=== PATIENT | male | born 1940 | race Caucasian/White ===

== ENCOUNTER → 2017-12-15 08:29 | Outpatient (CLI) | payer OTHER | END | disposition home or self-care (01) | LOC: D.US 08:29 | DX: C01 Malignant neoplasm of base of tongue (principal) ==

== ENCOUNTER 2020-05-12 13:18 | Inpatient (IN) | payer OTHER ==
[~2020-05-12] VITALS: Ht 185.4 cm; Wt 72.0 kg
[2020-05-12] MEDS ORDERED: REMERON15 MG PO (13:45)
[2020-05-12] MEDS ORDERED: LEVO-T50 MCG PO (13:45)
[2020-05-12] MEDS ORDERED: SINEMET 25-1001 EAC1 PO (13:51)
[2020-05-12 14:12] LABS: CALC OSMOLALITY 269 mosm/kg (275-300); CALCIUM 8.4 mg/dL (8.5-10.1); CARBON DIOXIDE 27.3 mmol/L (21.0-32.0); CHLORIDE - SERUM 98 mmol/L (98-107); CREATININE - SERUM 1.3 mg/dL (0.6-1.3); GLUCOSE 133 mg/dL (74-106); POTASSIUM - SERUM 3.8 mmol/L (3.5-5.1); SODIUM 132 mmol/L (136-145); UREA NITROGEN 22 mg/dL (7-18); eGFR NON AFRICAN AMERICAN 56 mL/min (90-120)
[2020-05-12 14:29] LABS: ALKALINE PHOSPHATASE 193 U/L (30-120); ALT (SGPT) 87 U/L (10-68); BILIRUBIN - TOTAL 0.33 mg/dL (0.2-1.3); CKMB 1.6 U/L (0.0-3.6); CREATINE KINASE 35 UL (21-232); PRO BNP 1179 pg/mL (0-450); PROTEIN - SERUM 7.8 g/dL (6.4-8.2); TROPONIN-I < 0.017 ng/mL (0.000-0.060)
[2020-05-12 14:31] LABS: BASOPHILS 0.3 % (0-2); HEMATOCRIT 31.9 % (42.0-54.0); HEMOGLOBIN 10.3 g/dL (13.5-17.5); IMMATURE GRANULOCYTES 0.3 % (0-5); LYMPHOCYTES 7.1 % (15-50); MCH 28.9 pg (26.0-34.0); MCHC 32.3 g/dL (31.0-37.0); MCV 89.6 fL (80.0-100.0); MEAN PLATELET VOLUME 8.8 fL (7.4-10.4); MONOCYTES 7.5 % (2-11); NEUTROPHILS 82.8 % (40-80); PLATELET COUNT 628 10x3/uL (130-400); RBC 3.56 10x6/uL (4.20-6.10); WBC 11.8 10x3/uL (4.8-10.8)
[2020-05-12 14:33] LABS: INR 1.1 (0.85-1.17); PROTIME 14.2 SECONDS (11.6-15.0)
[2020-05-12 14:34] LABS: APTT 40.7 SECONDS (22.8-39.4)
[2020-05-12 16:00] VITALS: BP 130/51
[2020-05-12] MEDS ORDERED: ZPAK PO (16:40)
[2020-05-12] MEDS ORDERED: MUCINEX600 MG PO (16:40)
[2020-05-12 17:01] LABS: C-REACTIVE PROTEIN 62.6 mg/dL (0.0-0.9)
[2020-05-12 17:30] VITALS: BP 141/54
[2020-05-12 18:30] VITALS: BP 134/58
--- NOTE | 2020-05-12 19:10 | NUR ---
REPORT GIVEN TO AYAZ HUSSEIN
[2020-05-12 20:30] VITALS: BP 133/41
[2020-05-13 01:20] VITALS: BP 121/57
[2020-05-13 05:37] VITALS: BP 155/70
[2020-05-13 07:00] LABS: BASOPHILS 0 % (0-2); EOSINOPHILS 0 % (0-7); HEMATOCRIT 30.8 % (42.0-54.0); IMMATURE GRANULOCYTES 0.2 % (0-5); MCH 29.2 pg (26.0-34.0); MCHC 32.5 g/dL (31.0-37.0); MCV 89.8 fL (80.0-100.0); MEAN PLATELET VOLUME 8.6 fL (7.4-10.4); MONOCYTES 2.6 % (2-11); NEUTROPHILS 91.2 % (40-80); PLATELET COUNT 513 10x3/uL (130-400); RBC 3.43 10x6/uL (4.20-6.10); RDW 13.1 % (11.5-14.5)
--- NOTE | 2020-05-13 07:00 | NUR ---
PT ARRIVED VIA APRIL JEAN AND UNLABORED ON 2L NC. DENIES NEEDS OR PAIN AT THIS TIME. CALL LIGHT WITHIN REACH. BED IN LOWEST POSITION. WILL CONTINUE TO MONITOR.
[2020-05-13 07:07] LABS: WBC 8.6 10x3/uL (4.8-10.8)
[2020-05-13 07:24] LABS: ANION GAP 10.6 mmol/L (8-16); CALCIUM 8.6 mg/dL (8.5-10.1); CREATININE - SERUM 1.1 mg/dL (0.6-1.3); MAGNESIUM - SERUM 2.2 mg/dL (1.8-2.4); PHOSPHOROUS 4.6 mg/dL (2.5-4.9); POTASSIUM - SERUM 4.6 mmol/L (3.5-5.1); THYROID STIMULATING HORMONE 0.7 uIU/mL (0.36-3.74)
[2020-05-13 07:54] VITALS: BP 128/52
[2020-05-13 11:00] VITALS: BMI 22.1
[2020-05-13 11:06] VITALS: BP 109/58
[2020-05-13 12:36] LABS: ERYTHROCYTE SEDIMENTATION RATE 133 mm/hr (0-20)
[2020-05-13 15:47] VITALS: BP 126/59
[2020-05-13 16:50] VITALS: BMI 22.2
--- NOTE | 2020-05-13 19:30 | NUR ---
PT IN BED, AAO X 2, RESP EVEN AND UNLABORED, NO DISTRESS NOTED, CL IN REACH, SR UP X 2.
[2020-05-13 20:00] VITALS: BP 169/75
[2020-05-14] VITALS: BP 113/46
[2020-05-14 04:00] VITALS: BP 144/63
[2020-05-14 04:30] LABS: BASOPHILS 0 % (0-2); EOSINOPHILS 0 % (0-7); HEMATOCRIT 27.8 % (42.0-54.0); HEMOGLOBIN 8.9 g/dL (13.5-17.5); IMMATURE GRANULOCYTES 0.4 % (0-5); MCH 28.6 pg (26.0-34.0); MCV 89.4 fL (80.0-100.0); MEAN PLATELET VOLUME 8.7 fL (7.4-10.4); MONOCYTES 5.3 % (2-11); NEUTROPHILS 89.3 % (40-80); PLATELET COUNT 498 10x3/uL (130-400); RBC 3.11 10x6/uL (4.20-6.10); RDW 13.1 % (11.5-14.5)
[2020-05-14 04:31] LABS: WBC 16.2 10x3/uL (4.8-10.8)
[2020-05-14 05:10] LABS: ANION GAP 9.3 mmol/L (8-16); CALCIUM 8.3 mg/dL (8.5-10.1); CARBON DIOXIDE 25.9 mmol/L (21.0-32.0); CREATININE - SERUM 1.2 mg/dL (0.6-1.3); MAGNESIUM - SERUM 2.1 mg/dL (1.8-2.4); PHOSPHOROUS 4.2 mg/dL (2.5-4.9); POTASSIUM - SERUM 4.2 mmol/L (3.5-5.1)
--- NOTE | 2020-05-14 08:00 | NUR ---
REPORT RECIEVED. PT SITTING SEMI FOWLERS IN BED. RR EVEN AND UNLABORED ON RA. PT HAS A R HAND PIV INFUSING NS @ 50. BED LOCKED AND IN LOWEST POSITION, CALL LIGHT WITHIN REACH. WILL CTM
[2020-05-14 09:25] VITALS: BP 133/57
[2020-05-14 13:02] LABS: KETONE NEGATIVE (NEGATIVE); NITRITE NEGATIVE (NEGATIVE)
[2020-05-14 13:03] LABS: BILIRUBIN NEGATIVE (NEGATIVE); UROBILINOGEN NORMAL mg/dL (< 2)
--- NOTE | 2020-05-14 14:31 | NUR ---
I have reviewed this patient and I concur with the Shift Assessment completed by the Licensed Practical Nurse today this shift.
--- NOTE | 2020-05-14 15:02 | NUR ---
OT NOTE: PT COMPLETED BED MOB WITH CGA/SBA. PT COMPLETED UE AROM TOLERATED. PT COMPLETED FACE/HAND HYGIENE WITH MIN A. [id number] THANK YOU,GABE JIANG
[2020-05-14 17:40] VITALS: Ht 185.4 cm; Wt 72.0 kg
--- NOTE | 2020-05-14 19:30 | NUR ---
PT SETTING UP ON SIDE OF BED, AAO X 3, RESP EVEN AND UNLABORED, NO DISTRESS NOTED, CL IN REACH.
[2020-05-14 20:00] VITALS: BP 137/64
[2020-05-15] VITALS: BP 121/55
--- NOTE | 2020-05-15 03:08 | NUR ---
I have reviewed this patient and I concur with the Shift Assessment completed by the Licensed Practical Nurse today this shift.
[2020-05-15 04:00] VITALS: BP 116/42
[2020-05-15 05:06] LABS: ANION GAP 12.9 mmol/L (8-16); CALCIUM 7.9 mg/dL (8.5-10.1); CARBON DIOXIDE 23.4 mmol/L (21.0-32.0); CREATININE - SERUM 1.1 mg/dL (0.6-1.3); PHOSPHOROUS 3.8 mg/dL (2.5-4.9); POTASSIUM - SERUM 4.3 mmol/L (3.5-5.1)
[2020-05-15 08:00] VITALS: BP 136/63
--- NOTE | 2020-05-15 08:05 | NUR ---
PT RECEIVED AWAKE AND ALERT. IV INFUSING, MEDS GIVEN. URINAL EMPTIED. REMINDED PT OF NPO STATUS FOR THORACENTESIS.
[2020-05-15 08:10] VITALS: BP 136/63
[2020-05-15 09:13] LABS: BASOPHILS 0 % (0-2); EOSINOPHILS 0 % (0-7); HEMOGLOBIN 9.3 g/dL (13.5-17.5); IMMATURE GRANULOCYTES 0.7 % (0-5); LYMPHOCYTES 9.3 % (15-50); MCH 28.8 pg (26.0-34.0); MCHC 32.1 g/dL (31.0-37.0); MCV 89.8 fL (80.0-100.0); MEAN PLATELET VOLUME 8.7 fL (7.4-10.4); MONOCYTES 7.3 % (2-11); NEUTROPHILS 82.7 % (40-80); PLATELET COUNT 500 10x3/uL (130-400); RBC 3.23 10x6/uL (4.20-6.10); RDW 13.2 % (11.5-14.5)
[2020-05-15 10:13] LABS: WBC 12.1 10x3/uL (4.8-10.8)
--- NOTE | 2020-05-15 12:59 | NUR ---
OT NOTE: PT SITTING UP IN BED; ABLE TO AMB TO TOILET WITH SBA; INDEP WITH URINAL USAGE. PT UPSET THAT HE HAS NOT HAD PROCEDURE YET AND HAS NOT HAD ANYTHING TO EAT. EXPLAINED TO PT THAT SOMETIMES A SURGERY EARLIER IN THE DAY CAN LAST LONGER THAN EXPECTED WHICH, IN TURN, MAKES THE FOLLOWING SURGERIES LATER. ATTEMPTED TO CALM PT; NO NEEDS AT THIS TIME. ROBERT PARMAR, OTR/L [phone]
--- NOTE | 2020-05-15 13:09 | NUR ---
Nutrition Follow-up: NPO for thoracentesis today. SALES SUPPORT MANAGER following; rec mech soft with thin liquids. Wt: 158.8# (05/14) Labs noted: Glu 114, Ca 7.9 Meds noted: Florajen, Pepcid, Remeron, zinc sulfate, vit D, vit C -Rec resume diet as medically feasible following procedure. -RD following.
--- NOTE | 2020-05-15 13:16 | NUR ---
TALKED WITH CT ABOUT THORACENTESIS, THEY STATE NOT GETTING DONE TILL COVID RESULTS BACK. INFORMED PT AND LET HIM EAT.
--- NOTE | 2020-05-15 14:53 | NUR ---
PT ASSISTED TO TAKE A SHOWER. IV WRAPPED. LINENS CHANGED.
[2020-05-15 18:26] VITALS: BP 162/73
--- NOTE | 2020-05-15 19:30 | NUR ---
PT IN BED, AAO X 2, PT GETS CONFUSED AT NIGHT SOMETIMES, RESP EVEN AND UNLABORED, NO DISTRESS NOTED, CL IN REACH, SR UP X 2.
[2020-05-15 20:00] VITALS: BP 136/52
[2020-05-16] VITALS (7 sets, daily range): BP systolic 99–151; BP diastolic 57–67
--- NOTE | 2020-05-16 00:38 | NUR ---
PT IN BED, AAO X 2, RESP EVEN AND UNLABORED, NO DISTRESS NOTED, CL IN REACH, SR UP X 2. PT GETS CONFUSED AT TIMES.
[2020-05-16 04:52] LABS: BASOPHILS 0 % (0-2); EOSINOPHILS 0 % (0-7); HEMATOCRIT 27.3 % (42.0-54.0); HEMOGLOBIN 8.7 g/dL (13.5-17.5); IMMATURE GRANULOCYTES 0.6 % (0-5); LYMPHOCYTES 9.6 % (15-50); MCH 28.6 pg (26.0-34.0); MCHC 31.9 g/dL (31.0-37.0); MCV 89.8 fL (80.0-100.0); MEAN PLATELET VOLUME 8.9 fL (7.4-10.4); MONOCYTES 8.7 % (2-11); NEUTROPHILS 81.1 % (40-80); PLATELET COUNT 426 10x3/uL (130-400); RBC 3.04 10x6/uL (4.20-6.10); RDW 13.3 % (11.5-14.5); WBC 10.5 10x3/uL (4.8-10.8)
[2020-05-16 05:07] LABS: ANION GAP 9.8 mmol/L (8-16); CARBON DIOXIDE 26.2 mmol/L (21.0-32.0); CREATININE - SERUM 1.4 mg/dL (0.6-1.3); MAGNESIUM - SERUM 2.1 mg/dL (1.8-2.4); PHOSPHOROUS 3.4 mg/dL (2.5-4.9); PROTEIN - SERUM 6.5 g/dL (6.4-8.2)
[2020-05-16 10:39] LABS: APTT 34.4 SECONDS (22.8-39.4); INR 1.11 (0.85-1.17); PROTIME 14.3 SECONDS (11.6-15.0)
[2020-05-16 13:38] LABS: PROTEIN - BODY FLUID 3.7 G/DL
[2020-05-16 14:04] LABS: EOS BF 25 %; NEUT - BF 8 %
--- NOTE | 2020-05-16 17:00 | NUR ---
OT NOTE: PT COMPLETED SUPINE TO SIT WITH WITH CGA. PT COMPLETED SIDE STEPS WITH CGA. PT COMPLETED ADL MOB WITH CGA. PT COMPLETED UE AROM AXS AT EOB WITH SBA. [id number] THANK YOU,GABE JIANG
--- NOTE | 2020-05-16 19:33 | NUR ---
RECEIVED REPORT, ASSUMED CARE, BREATHING EVEN UNLABORED, CALL LIGHT IN REACH, BED LOWEST POSITION, NO S/S OF DISTRESS NOTED, IV PATENT, PT UP TO BATHROOM
--- NOTE | 2020-05-17 01:19 | NUR ---
BLADDER SCANNED, 108ML PRESENT IN BLADDER AT THIS TIME
--- NOTE | 2020-05-17 04:30 | NUR ---
I have reviewed this patient and I concur with the Shift Assessment completed by the Licensed Practical Nurse today this shift.
[2020-05-17 04:40] VITALS: BP 105/52
[2020-05-17 05:25] LABS: BASOPHILS 0.1 % (0-2); EOSINOPHILS 3.1 % (0-7); HEMATOCRIT 28.9 % (42.0-54.0); HEMOGLOBIN 9.3 g/dL (13.5-17.5); IMMATURE GRANULOCYTES 0.6 % (0-5); LYMPHOCYTES 19.9 % (15-50); MCH 28.9 pg (26.0-34.0); MCHC 32.2 g/dL (31.0-37.0); MCV 89.8 fL (80.0-100.0); MEAN PLATELET VOLUME 8.8 fL (7.4-10.4); MONOCYTES 8.8 % (2-11); NEUTROPHILS 67.5 % (40-80); PLATELET COUNT 463 10x3/uL (130-400); RBC 3.22 10x6/uL (4.20-6.10); RDW 13.3 % (11.5-14.5); WBC 8.3 10x3/uL (4.8-10.8)
[2020-05-17 05:39] LABS: ANION GAP 8.5 mmol/L (8-16); CALCIUM 7.5 mg/dL (8.5-10.1); CARBON DIOXIDE 27.5 mmol/L (21.0-32.0); CREATININE - SERUM 1.2 mg/dL (0.6-1.3); PHOSPHOROUS 3.2 mg/dL (2.5-4.9)
--- NOTE | 2020-05-17 07:34 | NUR ---
UPON WALKING IN PT WAS AMBULATING BACK TO BED FROM THE BATHROOM WITH STEADY GAIT. COFFEE RECIEVED PER REQUEST. CALL LIGHT WITHIN REACH. DENIES FURTHER NEEDS OR PAIN AT THIS TIME. BED IN LOWEST POSITION. WILL CONTINUE TO MONITOR.
[2020-05-17 08:00] VITALS: BP 134/53
[2020-05-17 10:30] VITALS: BP 134/56
[2020-05-17 15:00] VITALS: BP 114/48
--- NOTE | 2020-05-17 15:20 | NUR ---
I have reviewed this patient and I concur with the Shift Assessment completed by the Licensed Practical Nurse today this shift.
[2020-05-17 20:06] LABS: ACID FAST SMEAR Negative (()); AFB SPECIMEN PROCESSING Concentration (())
[2020-05-17 21:42] VITALS: BP 123/49
[2020-05-18 01:49] VITALS: BP 130/54
--- NOTE | 2020-05-18 03:28 | NUR ---
I have reviewed this patient and I concur with the Shift Assessment completed by the Licensed Practical Nurse today this shift.
--- NOTE | 2020-05-18 03:58 | NUR ---
PT RESTING COMFORTABLY AT THIS TIME. RR EVEN AND UNLABORED. NO S/S OF DISTRESS. VITALS STABLE. BED LOW CALL LIGHT WITHIN REACH. WILL CONTINUE TO MONITOR.
[2020-05-18 05:39] VITALS: BP 143/71
[2020-05-18 06:33] LABS: BASOPHILS 0.1 % (0-2); EOSINOPHILS 4.6 % (0-7); HEMATOCRIT 29.1 % (42.0-54.0); HEMOGLOBIN 9.4 g/dL (13.5-17.5); IMMATURE GRANULOCYTES 0.8 % (0-5); LYMPHOCYTES 14.7 % (15-50); MCHC 32.3 g/dL (31.0-37.0); MCV 89.8 fL (80.0-100.0); MONOCYTES 8.5 % (2-11); NEUTROPHILS 71.3 % (40-80); PLATELET COUNT 476 10x3/uL (130-400); RBC 3.24 10x6/uL (4.20-6.10); RDW 13.3 % (11.5-14.5); WBC 10.3 10x3/uL (4.8-10.8)
[2020-05-18 06:40] LABS: ANION GAP 9.4 mmol/L (8-16); CALCIUM 7.9 mg/dL (8.5-10.1); CARBON DIOXIDE 25.4 mmol/L (21.0-32.0); CREATININE - SERUM 1.3 mg/dL (0.6-1.3); PHOSPHOROUS 3.2 mg/dL (2.5-4.9); POTASSIUM - SERUM 3.8 mmol/L (3.5-5.1)
[2020-05-18 08:18] VITALS: BP 136/64
--- NOTE | 2020-05-18 10:33 | NUR ---
PT ALERTA ND ORIENTED, ASSISTED WITH CHANGING IN TO CLEAN PJS, NO FAMILY AT BEDSIDE AT THIS TIME. TO COME LATER. NO COMPLAINTS OR CONCERNS AT THIS TIME. CL IN REACH, SRX2.
--- NOTE | 2020-05-18 13:29 | NUR ---
I have reviewed this patient and I concur with the Shift Assessment completed by the Licensed Practical Nurse today this shift.
--- NOTE | 2020-05-18 15:34 | NUR ---
PT AWAKE AND OREINTED, UP TO BATHROOM WITH WHEN I ENTERED ROOM. TOOK MEDICATIOSN WITHOUT COMPLICATIONS. NO COMPLAINTS OR CONCERNS STATED AT THIS TIME. VISUALIZED PT WAKLING WITH PHYSCIAL THERAPY, LINNENS CHANGED AT THAT TIME. BROUGHT FRESH WATER. CL IN REACH, SRX2.
[2020-05-18 17:41] VITALS: BP 126/62
[2020-05-18 21:30] VITALS: BP 123/49
[2020-05-19 01:30] VITALS: BP 135/61
--- NOTE | 2020-05-19 03:29 | NUR ---
I have reviewed this patient and I concur with the Shift Assessment completed by the Licensed Practical Nurse today this shift.
[2020-05-19 04:00] VITALS: BP 128/60
[2020-05-19 04:35] VITALS: BP 119/40
[2020-05-19 06:21] LABS: BASOPHILS 0.1 % (0-2); EOSINOPHILS 4.1 % (0-7); HEMATOCRIT 28.5 % (42.0-54.0); IMMATURE GRANULOCYTES 0.4 % (0-5); LYMPHOCYTES 12.6 % (15-50); MCH 28.7 pg (26.0-34.0); MCHC 31.6 g/dL (31.0-37.0); MCV 90.8 fL (80.0-100.0); MONOCYTES 9.9 % (2-11); NEUTROPHILS 72.9 % (40-80); PLATELET COUNT 476 10x3/uL (130-400); RBC 3.14 10x6/uL (4.20-6.10); RDW 13.7 % (11.5-14.5); WBC 9.2 10x3/uL (4.8-10.8)
[2020-05-19 06:35] LABS: ALBUMIN 1.9 g/dL (3.4-5.0); ANION GAP 8.8 mmol/L (8-16); BILIRUBIN - TOTAL 0.44 mg/dL (0.2-1.3); CALCIUM 7.8 mg/dL (8.5-10.1); CARBON DIOXIDE 25.9 mmol/L (21.0-32.0); CREATININE - SERUM 1.4 mg/dL (0.6-1.3); POTASSIUM - SERUM 3.7 mmol/L (3.5-5.1); PROTEIN - SERUM 6.4 g/dL (6.4-8.2)
[2020-05-19 09:39] VITALS: BP 118/52
--- NOTE | 2020-05-19 10:24 | NUR ---
PT ALERT AND OREITNED, CONTINUES TO BE LETHARGIC AND FALLS ASLEEP EASILY WHILE PREFORMING ADLS. PT EXPRESSES FRSUTRATION AT THIS AND IS HOPEFUL IT WILL RESOLVE WITH TIME. NO COMPLAINTS VOICED AT THIS TIME, TOOK ALL MEDICATIONS WITHOUT COMPLICATIONS. [facility] CL INR EACH, SRX2. PROVIDED CLEAN BLANKET.
--- NOTE | 2020-05-19 10:30 | NUR ---
PT AWAKE AND ORIENTED, ASSISTED WITH CHANGING CLOTHING THIS AM. NOW AT BEDSIDE. C/O DIAHREAH. LINNENS CHANGED BY TECH. NO OTHER COMPLAINTS OR CONCERNS VOICED AT THIS TIME. TOOK ALL MEDICATIONS WITHOUT COMPLICATIONS. CL IN REACH.SRX2.
[2020-05-19 12:00] VITALS: BP 109/45
--- NOTE | 2020-05-19 12:43 | MORECARE ---
CASE MANAGEMENT DISCHARGE SUMMARY PATIENT: MELVIN SYED UNIT: [id number] ADM DATE: 05/12/20 AGE: 79 : 40 SEX: M ROOM/BED: D.2103 AUTHOR: LACY CHIU PHYSICIAN: REFERRING PHYSICIAN: ANT PETER MD DATE OF SERVICE: 05/19/20 Discharge Plan Patient Name: MELVIN SYED [facility] [facility] 1940 Planned Disposition: Anticipated Discharge Date: Discharge Date: Expected LOS: Initial Reviewer: [email or web address] Initial Review Date: 05/12/2020 Generated: 05/19/20 1:43 pm Last DP export: 05/17/20 8:04 a Patient Name: MELVIN SYED Page 08262 at 1243 All edits/amendments must be made on the electronic document DICTATION DATE: 05/19/20 1243 COMMUNICATIONS PROJECT LEAD: ANTHONY 05/19/20 1243 RPT#: [id number] DC DATE: STATUS: ADM IN [facility] [address] [place] [address] END OF REPORT
[2020-05-19 13:09] LABS: FUNGUS STAIN Final report (())
--- NOTE | 2020-05-19 15:02 | NUR ---
OT NOTE: PT SITTING UP ON SIDE OF BED USING PHONE. ABLE TO CATALINA SOCKS WITH SET UP AND EXT TIME. SIT TO STAND WITH WALKER AND MIN ASSIST; AMB APPROX 120FT WITH WALKER AND MIN ASSIST. OCCASSIONALLY HAS DIFFICULTY WITH WALKER MGMT AND INITIATING STEPS..(WHEN PT IS AMBULATING AND PAUSES, HE HAS DIFFICULTY STARTING AGAIN.. SOMEONE WITH [facility])..PERFORMED ALL FUNCITONAL TRANSFERS WITH MIN ASSIST AND USE OF WALKER ROBERT PARMAR, OTR/L [phone]
--- NOTE | 2020-05-19 15:56 | MORECARE ---
CASE MANAGEMENT DISCHARGE SUMMARY PATIENT: DUTCH YEUNG UNIT: [id number] ADM DATE: 05/12/20 AGE: 79 : 40 SEX: M ROOM/BED: D.2103 AUTHOR: LACY CHIU PHYSICIAN: REFERRING PHYSICIAN: ANT PETER MD DATE OF SERVICE: 05/19/20 Discharge Plan Patient Name: DUTCH YEUNG Facility: [facility]:[place] : 1940 Planned Disposition: Home Health Service Anticipated Discharge Date: Discharge Date: Expected LOS: Initial Reviewer: [email or web address] Initial Review Date: 05/12/2020 Generated: 05/19/20 4:55 pm Comments DCP- Discharge Planning Updated by [email or web address]: Sintia Magana on 05/19/20 2:[address] CM met with patient and his , Elzbieta ([phone]) for DC planning. Patient and are in agreement to same. PCP: Dr. Garcia. Pharmacy: [facility] [address] DME: cane, walker, built-in shower bench, grab bars. CM discussed HHS, NF, Rehab with spouse (who answers questions). Spouse would like for patient to have HHS upon DC. Patient is also using a nebulizer while hospitalized, he does not have O2 or nebs at home. Spouse states that the patient has no problem going into the restroom and does not need a BSC. Spouse will drive patient home upon DC. Spouse signed a PAZ for [facility]. Patient would benefit Physical Therapy, Speech upon DC. CM will follow and assist PRN with DC needs/plans. Coverage Notice Reviewer: [id number] - Sintia Magana Notice Issued Date-Time: 05/19/2020 13:19 Notice Type: Patient Choice Letter Notice Delivered To: Patient Relationship to Patient: Self Non Emergency Services Ambulance Driver Name: Dutch Yeung Delivery Method: HAND - Hand Delivered Octavia Days: Prior Verbal Notification: Recipient Understood Notice: Yes Recipient Signature: Yes Med Rec Note Co-signed by Attending: Coverage Notice Comment: [facility] Last DP export: 05/19/20 11:43 a Patient Name: DUTCH YEUNG Page 30930 at 1556 All edits/amendments must be made on the electronic document DICTATION DATE: 05/19/201554 MANAGER RESOURCE: ANTHONY 05/19/201554 RPT#: [id number] DC DATE: STATUS: ADM IN [facility] [address] [place] [address] END OF REPORT
--- NOTE | 2020-05-19 16:05 | MORECARE ---
CASE MANAGEMENT DISCHARGE SUMMARY PATIENT: DUTCH YEUNG UNIT: [id number] ADM DATE: 05/12/20 AGE: 79 : 40 SEX: M ROOM/BED: D.2103 AUTHOR: ARAM,DOC PHYSICIAN: REFERRING PHYSICIAN: ANT PETER MD DATE OF SERVICE: 05/19/20 Discharge Plan Patient Name: DUTCH YEUNG Facility: [facility]:[place] : 1940 Planned Disposition: Home Health Service Anticipated Discharge Date: Discharge Date: Expected LOS: Initial Reviewer: [email or web address] Initial Review Date: 05/12/2020 Generated: 05/19/20 5:05 pm Comments DCP- Discharge Planning Updated by [email or web address]: Sintia Magana on 05/19/20 2:[address] CM met with patient and his , Elzbieta ([phone]) for DC planning. Patient and are in agreement to same. PCP: Dr. Garcia. Pharmacy: [facility] [address] DME: cane, walker, built-in shower bench, grab bars. CM discussed HHS, NF, Rehab with spouse (who answers questions). Spouse would like for patient to have HHS upon DC. Patient is also using a nebulizer while hospitalized, he does not have O2 or nebs at home. Spouse states that the patient has no problem going into the restroom and does not need a BSC. Spouse will drive patient home upon DC. Spouse signed a PAZ for [facility]. Patient would benefit Physical Therapy, Speech upon DC. CM will follow and assist PRN with DC needs/plans. DCPIA - Discharge Planning Initial Assessment Updated by [id number]: Sintia Magana on 05/19/20 3:57 pm * Is the patient Alert and Oriented? Yes * PCP Dr. Garcia * Pharmacy [facility] [address] * Preadmission Environment Home with Family * ADLs Independent * Equipment Grab Bars * Other Equipment Cane, walker, built-in shower bench, grab bars * List name and contact numbers for known caregivers / representatives who currently or will assist patient after discharge: Elzbieta Yeung () [phone] * Verbal permission to speak to the caregivers and representatives has been obtained from the patient. Yes * Community resources currently utilized Other * Please name any agencies selected above. [facility] * Additional services required to return to the preadmission environment? Yes * Can the patient safely return to the preadmission environment? Yes * Has this patient been hospitalized within the prior 30 days at any hospital? No Coverage Notice Reviewer: [id number] Emely Magana Notice Issued Date-Time: 05/19/2020 13:19 Notice Type: Patient Choice Letter Notice Delivered To: Patient Relationship to Patient: Self Corrosion Engineer Name: Dutch Yeung Delivery Method: HAND - Hand Delivered Octavia Days: Prior Verbal Notification: Recipient Understood Notice: Yes Recipient Signature: Yes Med Rec Note Co-signed by Attending: Coverage Notice Comment: [facility] Last DP export: 05/19/20 2:56 p Patient Name: DUTCH YEUNG Page 43615 at 1605 All edits/amendments must be made on the electronic document DICTATION DATE: 05/19/20 160 COMMUNITY ADVOCATE: ANTHONY 05/19/20 1605 RPT#: [id number] DC DATE: STATUS: ADM IN [facility] [address] [place] [address] END OF REPORT
--- NOTE | 2020-05-19 16:15 | MORECARE ---
CASE MANAGEMENT DISCHARGE SUMMARY PATIENT: DUTCH YEUNG UNIT: [id number] ADM DATE: 05/12/20 AGE: 79 : 40 SEX: M ROOM/BED: D.2103 AUTHOR: ARAM,DOC PHYSICIAN: REFERRING PHYSICIAN: ANT PETER MD DATE OF SERVICE: 05/19/20 Discharge Plan Patient Name: DUTCH YEUNG Facility: [facility]:[place] : 1940 Planned Disposition: Home Health Service Anticipated Discharge Date: Discharge Date: Expected LOS: Initial Reviewer: [email or web address] Initial Review Date: 05/12/2020 Generated: 05/19/20 5:15 pm Comments DCP- Discharge Planning Updated by [id number]: Sintia Magana on 05/19/20 3:[address] CM faxed the patient's FS to Alexander Riley, with [facility], in order to verify patient's insurance will approve his HHS. CM met with patient and his , Elzbieta ([phone]) for DC planning. Patient and are in agreement to same. PCP: Dr. Garcia. Pharmacy: [facility] [address] DME: cane, walker, built-in shower bench, grab bars. CM discussed HHS, NF, Rehab with spouse (who answers questions). Spouse would like for patient to have HHS upon DC. Patient is also using a nebulizer while hospitalized, he does not have O2 or nebs at home. Spouse states that the patient has no problem going into the restroom and does not need a BSC. Spouse will drive patient home upon DC. Spouse signed a PAZ for [facility]. Patient would benefit Physical Therapy, Speech upon DC. CM will follow and assist PRN with DC needs/plans. DCPIA - Discharge Planning Initial Assessment Updated by [id number]: Sintia Magana on 05/19/20 3:57 pm * Is the patient Alert and Oriented? Yes * PCP Dr. Garcia * Pharmacy [facility] [address] * Preadmission Environment Home with Family * ADLs Independent * Equipment Grab Bars * Other Equipment Cane, walker, built-in shower bench, grab bars * List name and contact numbers for known caregivers / representatives who currently or will assist patient after discharge: Elzbieta Yeung () [phone] * Verbal permission to speak to the caregivers and representatives has been obtained from the patient. Yes * Community resources currently utilized Other * Please name any agencies selected above. [facility] * Additional services required to return to the preadmission environment? Yes * Can the patient safely return to the preadmission environment? Yes * Has this patient been hospitalized within the prior 30 days at any hospital? No Coverage Notice Reviewer: [id number] Emely Magana Notice Issued Date-Time: 05/19/2020 13:19 Notice Type: Patient Choice Letter Notice Delivered To: Patient Relationship to Patient: Self On Car Supervisor Name: Dutch Yeung Delivery Method: HAND - Hand Delivered Octavia Days: Prior Verbal Notification: Recipient Understood Notice: Yes Recipient Signature: Yes Med Rec Note Co-signed by Attending: Coverage Notice Comment: [facility] Last DP export: 05/19/20 3:05 p Patient Name: DUTCH YEUNG Page 80234 at 1615 All edits/amendments must be made on the electronic document DICTATION DATE: 05/19/20 1615 FERMENTING CELLAR DROPPER: ANTHONY 05/19/20 1615 RPT#: [id number] DC DATE: STATUS: ADM IN [facility] [address] [place] [address] END OF REPORT
--- NOTE | 2020-05-19 16:55 | NUR ---
I have reviewed this patient and I concur with the Shift Assessment completed by the Licensed Practical Nurse today this shift.
[2020-05-19 22:24] VITALS: BP 97/39
--- NOTE | 2020-05-20 01:31 | NUR ---
pt laying in bed alert and oriented. pt denies any pain or discomfort.resp are nubia et unlabored.pt has sob with exertion.occ nonproductive cough.IV to right wrist, infusing without s/s of infiltration.instruct pt on npo status after midnight.no distress noted. callbell within reach.siderails up x2.will continue to monitor.
--- NOTE | 2020-05-20 02:00 | NUR ---
PT LAYING IN BED RESTING QUIETLY WITH EYES CLOSED. RESP ARE EVEN ET UNLABORED.NO DISTRESS NOTED.
[2020-05-20 03:19] VITALS: BP 97/35
[2020-05-20 05:11] LABS: BASOPHILS 0.1 % (0-2); EOSINOPHILS 4.3 % (0-7); HEMATOCRIT 24.7 % (42.0-54.0); HEMOGLOBIN 7.7 g/dL (13.5-17.5); IMMATURE GRANULOCYTES 0.3 % (0-5); LYMPHOCYTES 10.8 % (15-50); MCH 28.2 pg (26.0-34.0); MCHC 31.2 g/dL (31.0-37.0); MCV 90.5 fL (80.0-100.0); MONOCYTES 9.5 % (2-11); PLATELET COUNT 455 10x3/uL (130-400); RBC 2.73 10x6/uL (4.20-6.10); RDW 13.8 % (11.5-14.5); WBC 9.6 10x3/uL (4.8-10.8)
[2020-05-20 05:27] LABS: ALBUMIN 1.8 g/dL (3.4-5.0); ANION GAP 9.5 mmol/L (8-16); BILIRUBIN - TOTAL 0.48 mg/dL (0.2-1.3); CALCIUM 7.7 mg/dL (8.5-10.1); CREATININE - SERUM 1.4 mg/dL (0.6-1.3); POTASSIUM - SERUM 3.5 mmol/L (3.5-5.1); PROTEIN - SERUM 6.1 g/dL (6.4-8.2); VANCOMYCIN - RANDOM 21.7 ug/mL (10.0-20.0)
[2020-05-20 06:59] VITALS: BP 93/36
[2020-05-20 07:00] VITALS: BP 128/47
[2020-05-20 10:30] VITALS: BP 140/62
--- NOTE | 2020-05-20 10:38 | NUR ---
0700--PT LYING IN BED SLEEPING, SNORRING NOTED, RA, NS IN PROGRESS/ORDER W/O DIFFICULTY. NO DISTRESS NOTED.
--- NOTE | 2020-05-20 10:39 | NUR ---
0900-MEDS NOT GIVEN HOLDING UNTIL AFTER PT'S BRONCHOSCOPY DONE--PT C/O BEING HUNGRY AND WANTING BREAKFAST--NURSE VERBALLY EXPLAINS NPO STATUS UNTIL AFTER BREAKFAST W/UNDERSTANDING STATED.
--- NOTE | 2020-05-20 10:46 | NUR ---
PT'S AT [facility] STATES THE NURSE PRAC WAS JUST IN ROOM AND SAID PT MAY HAVE A FEW ICE CHIPS TO WET HIS MONTH--ICE CHIPS GIVEN, DENIES ANY FURTHER NEEDS AT THIS TIME.
--- NOTE | 2020-05-20 11:21 | NUR ---
Nutrition Follow-up: NPO for bronch. Noted pt hungry and wanting to eat breakfast this AM. Wt: 158.8# (05/14) Last BM: 05/19 per chart Labs noted: Ca 7.7, Alb 1.8 Meds noted: Florajen, Remeron, Pepcid, electrolyte protocol -Need new wt if possible; noted daily wts ordered. -RD following.
--- NOTE | 2020-05-20 14:37 | NUR ---
PT GONE FOR BRONCHOSCOPY AT THIS TIME
[2020-05-20 15:00] VITALS: BP 131/53
--- NOTE | 2020-05-20 16:19 | NUR ---
OT NOTE: BRONCHOSCOPY IN PM ROBERT PARMAR, OTR/L
--- NOTE | 2020-05-20 16:49 | NUR ---
1600-PT BROUGHT BACK FROM HAVING BRONCHOSCOPY DONE--VS WNL--PT NPO FOR NEXT 2 HOURS THEN ON TO A MECHANICAL SOFT DIET--INFORMED PT AND OF THIS WITH UNDERSTANDING STATED. PT DENIES ANY NEEDS OR C/O AT THIS TIME.
[2020-05-20 20:00] VITALS: BP 138/54
--- NOTE | 2020-05-20 20:06 | NUR ---
PT A/O X4 RESTING IN BED. VITALS STABLE. PT COUGHING FREQUENTLY. PT HAD BRONC TODAY. PT TAKING MEDICATION 1 AT A TIME. BED LOW CALL LIGHT WITHIN REACH. BED LOW WILL CONTINUE TO MONITOR.
[2020-05-21] VITALS: BP 121/56
--- NOTE | 2020-05-21 02:20 | NUR ---
PT LAYING IN BED ALERT.NO COMPLAINTS.PT UP TO RESTROOM.PT STATES HE IS GOING BACK TO SLEEP.NO DISTRESS NOTED.
[2020-05-21 04:00] VITALS: BP 124/57
[2020-05-21 06:05] LABS: BASOPHILS 0.1 % (0-2); EOSINOPHILS 0.9 % (0-7); HEMATOCRIT 25.4 % (42.0-54.0); HEMOGLOBIN 7.9 g/dL (13.5-17.5); IMMATURE GRANULOCYTES 0.4 % (0-5); LYMPHOCYTES 7.1 % (15-50); MCH 28.2 pg (26.0-34.0); MCHC 31.1 g/dL (31.0-37.0); MCV 90.7 fL (80.0-100.0); MONOCYTES 6.3 % (2-11); NEUTROPHILS 85.2 % (40-80); PLATELET COUNT 471 10x3/uL (130-400); RDW 14.1 % (11.5-14.5)
[2020-05-21 06:08] LABS: WBC 15.3 10x3/uL (4.8-10.8)
[2020-05-21 06:35] LABS: ALBUMIN 1.9 g/dL (3.4-5.0); ANION GAP 14.4 mmol/L (8-16); BILIRUBIN - TOTAL 0.68 mg/dL (0.2-1.3); CALCIUM 7.8 mg/dL (8.5-10.1); CARBON DIOXIDE 22.3 mmol/L (21.0-32.0); CREATININE - SERUM 1.2 mg/dL (0.6-1.3); POTASSIUM - SERUM 3.7 mmol/L (3.5-5.1); PROTEIN - SERUM 6.4 g/dL (6.4-8.2); VANCOMYCIN - RANDOM 16.7 ug/mL (10.0-20.0)
[2020-05-21 07:42] VITALS: BP 96/41
[2020-05-21] MEDS ORDERED: CLEOCIN HCL300 MG PO (12:19)
[2020-05-21] MEDS ORDERED: AZITHROMYCIN500 MG PO (12:19)
[2020-05-21 14:21] VITALS: BP 110/48
--- NOTE | 2020-05-21 15:08 | NUR ---
UPON DISCHARGE, PATIENT IS ASKED ABOUT FLU SHOT. FEMALE MEMBER IN CHAIR AND HE STATES "YES" HE WANTS ONE.
--- NOTE | 2020-05-21 15:51 | MORECARE ---
CASE MANAGEMENT DISCHARGE SUMMARY PATIENT: DUTCH YEUNG UNIT: [id number] ADM DATE: 05/12/20 AGE: 79 : 40 SEX: M ROOM/BED: D.2104 AUTHOR: ARAM,DOC PHYSICIAN: REFERRING PHYSICIAN: ANT PETER MD DATE OF SERVICE: 05/21/20 Discharge Plan Patient Name: DUTCH YEUNG Facility: [facility]:[place] : 1940 Planned Disposition: Home Health Service Anticipated Discharge Date: Discharge Date: Expected LOS: Initial Reviewer: [email or web address] Initial Review Date: 05/12/2020 Generated: 05/21/20 4:51 pm Comments DCP- Discharge Planning Updated by [id number]: Martha Palumbo on 05/21/20 2:[address] Patient Name: DUTCH YEUNG Encounter No: [id number] : 1940 Primary Insurance: [id number] Anticipated DC Date: Planned Disposition: Home Health Service External Planned Provider: : DCP follow-up note: Patient and family in agreement with discharge plan. No changes to plan. I called and informed Alexander with [facility] and order faxed. Case management will follow and assist as needed. Martha Palumbo DCP- Discharge Planning Updated by [id number]: Sintia Magana on 05/19/20 3:[address] CM faxed the patient's FS to Alexander Riley, with [facility], in order to verify patient's insurance will approve his HHS. CM met with patient and his , Elzbieta ([phone]) for DC planning. Patient and are in agreement to same. PCP: Dr. Garcia. Pharmacy: [facility] [address] DME: cane, walker, built-in shower bench, grab bars. CM discussed HHS, NF, Rehab with spouse (who answers questions). Spouse would like for patient to have HHS upon DC. Patient is also using a nebulizer while hospitalized, he does not have O2 or nebs at home. Spouse states that the patient has no problem going into the restroom and does not need a BSC. Spouse will drive patient home upon DC. Spouse signed a PAZ for [facility]. Patient would benefit Physical Therapy, Speech upon DC. CM will follow and assist PRN with DC needs/plans. DCPIA - Discharge Planning Initial Assessment Updated by [email or web address]: Sintia Magana on 05/19/20 3:57 pm * Is the patient Alert and Oriented? Yes * PCP Dr. Garcia * [facility] * Preadmission Environment Home with Family * ADLs Independent * Equipment Grab Bars * Other Equipment Cane, walker, built-in shower bench, grab bars * List name and contact numbers for known caregivers / representatives who currently or will assist patient after discharge: Elzbieta Yeung () [phone] * Verbal permission to speak to the caregivers and representatives has been obtained from the patient. Yes * Community resources currently utilized Other * Please name any agencies selected above. [facility] * Additional services required to return to the preadmission environment? Yes * Can the patient safely return to the preadmission environment? Yes * Has this patient been hospitalized within the prior 30 days at any hospital? No External Providers External Provider: [facility] Next Contact Date: Service Request Date: Service Type: Resolution: Reviewer: Comments: Coverage Notice Reviewer: [email or web address] - Sintia Magana Notice Issued Date-Time: 05/19/2020 13:19 Notice Type: Patient Choice Letter Notice Delivered To: Patient Relationship to Patient: Self Coffee Grower Name: Dutch Yeung Delivery Method: HAND - Hand Delivered Octavia Days: Prior Verbal Notification: Recipient Understood Notice: Yes Recipient Signature: Yes Med Rec Note Co-signed by Attending: Coverage Notice Comment: [facility] Reviewer: [id number] Emely Palumbo Notice Issued Date-Time: 05/21/2020 15:43 Notice Type: IM Discharge Notice Notice Delivered To: Family Member Relationship to Patient: Spouse Coffee Grower Name: Destiny Yeung Delivery Method: HAND - Hand Delivered Octavia Days: Prior Verbal Notification: Recipient Understood Notice: Yes Recipient Signature: Yes Med Rec Note Co-signed by Attending: Coverage Notice Comment: IMM explained, signed, given, copy placed in MR Last DP export: 05/19/20 3:15 p Patient Name: DUTCH YEUNG Page [id number] at 1551 All edits/amendments must be made on the electronic document DICTATION DATE: 05/21/201550 PICTURE FRAMES INSPECTOR: ANTHONY 05/21/20 155 RPT#: [id number] DC DATE: STATUS: ADM IN [facility] [address] [place] [address] END OF REPORT
[2020-05-21 20:07] LABS: ACID FAST SMEAR Negative (()); AFB SPECIMEN PROCESSING Concentration (())
--- NOTE | 2020-05-22 08:59 | MORECARE ---
CASE MANAGEMENT DISCHARGE SUMMARY PATIENT: DUTCH YEUNG UNIT: [id number] ADM DATE: 05/12/20 AGE: 79 : 40 SEX: M ROOM/BED: D.2106 AUTHOR: ARAMDOC PHYSICIAN: REFERRING PHYSICIAN: ANT PETER MD DATE OF SERVICE: 05/22/20 Discharge Plan Patient Name: DUTCH YEUNG Facility: [facility]:[place] : 1940 Planned Disposition: Home Health Service Anticipated Discharge Date: 05/21/20 Discharge Date: 05/21/2020 Expected LOS: 9 Initial Reviewer: [id number] Initial Review Date: 05/12/2020 Generated: 05/22/20 9:59 am DCP- Discharge Planning Updated by [id number]: Martha Palumbo on 05/21/20 2:[address] Patient Name: DUTCH YEUNG Encounter No: [id number] : 1940 Primary Insurance: NOVASYSMCR Anticipated DC Date: Planned Disposition: Home Health Service External Planned Provider: : DCP follow-up note: Patient and family in agreement with discharge plan. No changes to plan. I called and informed Alexander with [facility] and order faxed. Case management will follow and assist as needed. Martha Palumbo DCP- Discharge Planning Updated by [id number]: Sintia Magana on 05/19/20 3:[address] CM faxed the patient's FS to Alexander Riley, with [facility], in order to verify patient's insurance will approve his HHS. CM met with patient and his , Elzbieta ([phone]) for DC planning. Patient and are in agreement to same. PCP: Dr. Garcia. Pharmacy: [facility] [address] DME: cane, walker, built-in shower bench, grab bars. CM discussed HHS, NF, Rehab with spouse (who answers questions). Spouse would like for patient to have HHS upon DC. Patient is also using a nebulizer while hospitalized, he does not have O2 or nebs at home. Spouse states that the patient has no problem going into the restroom and does not need a BSC. Spouse will drive patient home upon DC. Spouse signed a PAZ for [facility]. Patient would benefit Physical Therapy, Speech upon DC. CM will follow and assist PRN with DC needs/plans. DCPIA - Discharge Planning Initial Assessment Updated by [email or web address]: Sintia Magana on 05/19/20 3:57 pm * Is the patient Alert and Oriented? Yes * PCP Dr. Garcia * Pharmacy [facility] [address] * Preadmission Environment Home with Family * ADLs Independent * Equipment Grab Bars * Other Equipment Cane, walker, built-in shower bench, grab bars * List name and contact numbers for known caregivers / representatives who currently or will assist patient after discharge: Elzbieta Yeung () [phone] * Verbal permission to speak to the caregivers and representatives has been obtained from the patient. Yes * Community resources currently utilized Other * Please name any agencies selected above. [facility] * Additional services required to return to the preadmission environment? Yes * Can the patient safely return to the preadmission environment? Yes * Has this patient been hospitalized within the prior 30 days at any hospital? No Coverage Notice Reviewer: [id number] - Sintia Magana Notice Issued Date-Time: 05/19/2020 13:19 Notice Type: Patient Choice Letter Notice Delivered To: Patient Relationship to Patient: Self Brainer Name: Dutch Yeung Delivery Method: HAND - Hand Delivered Octavia Days: Prior Verbal Notification: Recipient Understood Notice: Yes Recipient Signature: Yes Med Rec Note Co-signed by Attending: Coverage Notice Comment: [facility] Reviewer: [id number] Emely Palumbo Notice Issued Date-Time: 05/21/2020 15:43 Notice Type: IM Discharge Notice Notice Delivered To: Family Member Relationship to Patient: Spouse Brainer Name: Destiny Yeung Delivery Method: HAND - Hand Delivered Octavia Days: Prior Verbal Notification: Recipient Understood Notice: Yes Recipient Signature: Yes Med Rec Note Co-signed by Attending: Coverage Notice Comment: IMM explained, signed, given, copy placed in MR Last DP export: 05/21/20 2:51 p Patient Name: DUTCH YEUNG Page [id number] at 0859 All edits/amendments must be made on the electronic document DICTATION DATE: 05/22/20 0859 HEAT TREATING FURNACE TENDER: ANTHONY 05/22/2059 RPT#: [id number] DC DATE:05/21/20 STATUS: DIS IN [facility] [address] [place] [address] END OF REPORT
--- NOTE | 2020-05-22 09:06 | MORECARE ---
CASE MANAGEMENT DISCHARGE SUMMARY PATIENT: DUTCH YEUNG UNIT: [id number] ADM DATE: 05/12/20 AGE: 79 : 40 SEX: M ROOM/BED: D.2105 AUTHOR: ARAMDOC PHYSICIAN: REFERRING PHYSICIAN: ANT PETER MD DATE OF SERVICE: 05/22/20 Discharge Plan Patient Name: DUTCH YEUNG Facility: [facility]:[place] : 1940 Planned Disposition: Home Health Service Anticipated Discharge Date: 05/21/20 Discharge Date: 05/21/2020 Expected LOS: 9 Initial Reviewer: [id number] Initial Review Date: 05/12/2020 Generated: 05/22/20 10:06 am DCP- Discharge Planning Updated by [id number]: Martha Palumbo on 05/21/20 2:[address] Patient Name: DUTCH YEUNG Encounter No: [id number] : 1940 Primary Insurance: NOVASYSMCR Anticipated DC Date: Planned Disposition: Home Health Service External Planned Provider: : DCP follow-up note: Patient and family in agreement with discharge plan. No changes to plan. I called and informed Alexander with [facility] and order faxed. Case management will follow and assist as needed. Martha Palumbo DCP- Discharge Planning Updated by [id number]: Sintia Magana on 05/19/20 3:[address] CM faxed the patient's FS to Alexander Riley, with [facility], in order to verify patient's insurance will approve his HHS. CM met with patient and his , Elzbieta ([phone]) for DC planning. Patient and are in agreement to same. PCP: Dr. Garcia. Pharmacy: [facility] [address] DME: cane, walker, built-in shower bench, grab bars. CM discussed HHS, NF, Rehab with spouse (who answers questions). Spouse would like for patient to have HHS upon DC. Patient is also using a nebulizer while hospitalized, he does not have O2 or nebs at home. Spouse states that the patient has no problem going into the restroom and does not need a BSC. Spouse will drive patient home upon DC. Spouse signed a PAZ for [facility]. Patient would benefit Physical Therapy, Speech upon DC. CM will follow and assist PRN with DC needs/plans. DCPIA - Discharge Planning Initial Assessment Updated by [id number]: Sintia Magana on 05/19/20 3:57 pm * Is the patient Alert and Oriented? Yes * PCP Dr. Garcia * Pharmacy [facility] [address] * Preadmission Environment Home with Family * ADLs Independent * Equipment Grab Bars * Other Equipment Cane, walker, built-in shower bench, grab bars * List name and contact numbers for known caregivers / representatives who currently or will assist patient after discharge: Elzbieta Yeung () [phone] * Verbal permission to speak to the caregivers and representatives has been obtained from the patient. Yes * Community resources currently utilized Other * Please name any agencies selected above. [facility] * Additional services required to return to the preadmission environment? Yes * Can the patient safely return to the preadmission environment? Yes * Has this patient been hospitalized within the prior 30 days at any hospital? No Coverage Notice Reviewer: [id number] - Sintia Magana Notice Issued Date-Time: 05/19/2020 13:19 Notice Type: Patient Choice Letter Notice Delivered To: Patient Relationship to Patient: Self Pss Delivery Professional Name: Dutch Yeung Delivery Method: HAND - Hand Delivered Octavia Days: Prior Verbal Notification: Recipient Understood Notice: Yes Recipient Signature: Yes Med Rec Note Co-signed by Attending: Coverage Notice Comment: [facility] Reviewer: [id number] Emely Palumbo Notice Issued Date-Time: 05/21/2020 15:43 Notice Type: IM Discharge Notice Notice Delivered To: Family Member Relationship to Patient: Spouse Pss Delivery Professional Name: Destiny Yeung Delivery Method: HAND - Hand Delivered Octavia Days: Prior Verbal Notification: Recipient Understood Notice: Yes Recipient Signature: Yes Med Rec Note Co-signed by Attending: Coverage Notice Comment: IMM explained, signed, given, copy placed in MR Last DP export: 05/22/20 7:59 a Patient Name: DUTCH YEUNG Page [phone] at 0906 All edits/amendments must be made on the electronic document DICTATION DATE: 10/04/03 906 BREAKER UP: DM 05/22/20905 RPT#: [id number] DC DATE:05/21/20 STATUS: DIS IN [facility] [address] [place] [address] END OF REPORT
--- NOTE | 2020-05-22 09:13 | MORECARE ---
CASE MANAGEMENT DISCHARGE SUMMARY PATIENT: DUTCH YEUNG UNIT: [id number] ADM DATE: 05/12/20 AGE: 79 : 40 SEX: M ROOM/BED: D.2109 AUTHOR: ARAMDOC PHYSICIAN: REFERRING PHYSICIAN: ANT PETER MD DATE OF SERVICE: 05/22/20 Discharge Plan Patient Name: DUTCH YEUNG Facility: [facility]:[place] : 1940 Planned Disposition: Home Health Service Anticipated Discharge Date: 05/21/20 Discharge Date: 05/21/2020 Expected LOS: 9 Initial Reviewer: [id number] Initial Review Date: 05/12/2020 Generated: 05/22/20 10:13 am DCP- Discharge Planning Updated by [id number]: Martha Palumbo on 05/21/20 2:[address] Patient Name: DUTCH YEUNG Encounter No: [id number] : 1940 Primary Insurance: NOVASYSMCR Anticipated DC Date: Planned Disposition: Home Health Service External Planned Provider: : DCP follow-up note: Patient and family in agreement with discharge plan. No changes to plan. I called and informed Alexander with [facility] and order faxed. Case management will follow and assist as needed. Martha Palumbo DCP- Discharge Planning Updated by [id number]: Sintai Magana on 05/19/20 3:[address] CM faxed the patient's FS to Alexander Riley, with [facility], in order to verify patient's insurance will approve his HHS. CM met with patient and his , Elzbieta ([phone]) for DC planning. Patient and are in agreement to same. PCP: Dr. Garcia. Pharmacy: [email or web address] DME: cane, walker, built-in shower bench, grab bars. CM discussed HHS, NF, Rehab with spouse (who answers questions). Spouse would like for patient to have HHS upon DC. Patient is also using a nebulizer while hospitalized, he does not have O2 or nebs at home. Spouse states that the patient has no problem going into the restroom and does not need a BSC. Spouse will drive patient home upon DC. Spouse signed a PAZ for [facility]. Patient would benefit Physical Therapy, Speech upon DC. CM will follow and assist PRN with DC needs/plans. DCPIA - Discharge Planning Initial Assessment Updated by [id number]: Sintia Magana on 05/19/20 3:57 pm * Is the patient Alert and Oriented? Yes * PCP Dr. Garcia * Pharmacy [facility] [address] * Preadmission Environment Home with Family * ADLs Independent * Equipment Grab Bars * Other Equipment Cane, walker, built-in shower bench, grab bars * List name and contact numbers for known caregivers / representatives who currently or will assist patient after discharge: Elzbieta Yeung () [phone] * Verbal permission to speak to the caregivers and representatives has been obtained from the patient. Yes * Community resources currently utilized Other * Please name any agencies selected above. [facility] * Additional services required to return to the preadmission environment? Yes * Can the patient safely return to the preadmission environment? Yes * Has this patient been hospitalized within the prior 30 days at any hospital? No Coverage Notice Reviewer: [id number] - Sintia Magana Notice Issued Date-Time: 05/19/2020 13:19 Notice Type: Patient Choice Letter Notice Delivered To: Patient Relationship to Patient: Self Forestry Consultant Name: Dutch Yeung Delivery Method: HAND - Hand Delivered Octavia Days: Prior Verbal Notification: Recipient Understood Notice: Yes Recipient Signature: Yes Med Rec Note Co-signed by Attending: Coverage Notice Comment: [facility] Reviewer: [id number] Emely Palumbo Notice Issued Date-Time: 05/21/2020 15:43 Notice Type: IM Discharge Notice Notice Delivered To: Family Member Relationship to Patient: Spouse Forestry Consultant Name: Destiny Yeung Delivery Method: HAND - Hand Delivered Octavia Days: Prior Verbal Notification: Recipient Understood Notice: Yes Recipient Signature: Yes Med Rec Note Co-signed by Attending: Coverage Notice Comment: IMM explained, signed, given, copy placed in MR Last DP export: 05/22/20 7:59 a Patient Name: DUTCH YEUNG Page [phone] at 0913 All edits/amendments must be made on the electronic document DICTATION DATE: 05/22/20912 WOOD CLUB NECK WHIPPER: DM 05/22/20912 RPT#: [id number] DC DATE:05/21/20 STATUS: DIS IN [facility] [address] [place] [address] END OF REPORT
[2020-05-23 14:10] LABS: FUNGUS STAIN Final report (())
--- NOTE | 2020-05-25 04:13 | NUR ---
LATE ENTRY: AZITHROMYCIN STARTED 05/12/20 @ 1930 FINISHED 05/12/20 @ 2029 500MG/250ML INFUSED.
== END 2020-05-21 16:54 | disposition home health service (06) | DRG 177 ==
LOC: D.ER 13:18 → D.M2 18:25 → D.EDHOLD 18:25 → D.M2 05-13 01:11
PROVIDERS: Emergency Medicine; Family Medicine; Internal Medicine Pulmonary Disease; Radiology Diagnostic Radiology; ADMIT Family Medicine Adult Medicine; ATTEND Family Medicine Adult Medicine
PROC: 0W993ZZ Drainage of Right Pleural Cavity, Percutaneous Approach (ICD-10-PCS; principal; 2020-05-16 10:54)
PROC: 0BDD8ZX Extraction of Right Middle Lung Lobe, Via Natural or Artificial Opening Endoscopic, Diagnostic (ICD-10-PCS; 2020-05-20)
PROC: 0BB58ZX Excision of Right Middle Lobe Bronchus, Via Natural or Artificial Opening Endoscopic, Diagnostic (ICD-10-PCS; 2020-05-20)
DX: J85.0 Gangrene and necrosis of lung (principal); J69.0 Pneumonitis due to inhalation of food and vomit; S22.41XA Multiple fractures of ribs, right side, initial encounter for closed fracture; J44.1 Chronic obstructive pulmonary disease with (acute) exacerbation; J98.11 Atelectasis; N17.9 Acute kidney failure, unspecified; D49.1 Neoplasm of unspecified behavior of respiratory system; M19.90 Unspecified osteoarthritis, unspecified site; R26.9 Unspecified abnormalities of gait and mobility; D47.3 Essential (hemorrhagic) thrombocythemia; E03.9 Hypothyroidism, unspecified; R91.1 Solitary pulmonary nodule; X58.XXXA Exposure to other specified factors, initial encounter; I25.10 Atherosclerotic heart disease of native coronary artery without angina pectoris; N18.9 Chronic kidney disease, unspecified; D63.1 Anemia in chronic kidney disease; R06.03 Acute respiratory distress; Z87.891 Personal history of nicotine dependence

== ENCOUNTER → 2020-10-15 10:58 | Outpatient (CLI) | payer OTHER ==
[2020-05-14 17:40] VITALS: BMI 22.2
[~2020-10-15 10:58] MED LIST: AZITHROMYCIN500 MG PO; CLEOCIN HCL300 MG PO; LEVO-T50 MCG PO; MUCINEX600 MG PO; REMERON15 MG PO; SINEMET 25-1001 EAC1 PO; ZPAK PO
== END | disposition home or self-care (01) ==
LOC: D.CT 10-13 14:00
PROVIDERS: ATTEND Internal Medicine Pulmonary Disease
DX: J47.9 Bronchiectasis, uncomplicated (principal)

== ENCOUNTER → 2020-11-12 10:03 | Outpatient (CLI) | payer OTHER ==
[2020-05-14 17:40] VITALS: BMI 22.2
== END | disposition home or self-care (01) ==
LOC: D.CT 10:00
PROVIDERS: ATTEND Nurse Practitioner Family
DX: S09.90XA Unspecified injury of head, initial encounter (principal)

== ENCOUNTER 2020-11-21 09:35 | Inpatient (IN) | payer OTHER ==
[~2020-11-21] VITALS: Ht 185.4 cm; Wt 60.8 kg
[~2020-11-21 09:35] MED LIST changes: -SINEMET 25-1001 EAC1 PO; +SINEMET 25-2501 EAC1 PO
[2020-11-21 10:16] LABS: BASOPHILS 0.8 % (0-2); EOSINOPHILS 10.2 % (0-7); HEMATOCRIT 33.7 % (42.0-54.0); HEMOGLOBIN 11.1 g/dL (13.5-17.5); LYMPHOCYTE ABS# 1.02 10x3/uL (1.32-3.57); LYMPHOCYTES 19.9 % (15-50); MCH 30.6 pg (26.0-34.0); MCHC 32.9 g/dL (31.0-37.0); MCV 92.8 fL (80.0-100.0); MEAN PLATELET VOLUME 9.5 fL (7.4-10.4); NEUTROPHIL ABS# 3.03 10x3/uL (1.78-5.38); NEUTROPHILS 59.1 % (40-80); RBC 3.63 10x6/uL (4.20-6.10); RDW 13.8 % (11.5-14.5); WBC 5.1 10x3/uL (4.8-10.8)
[2020-11-21 10:18] LABS: PLATELET COUNT 352 10x3/uL (130-400)
[2020-11-21 10:29] LABS: APTT 35.3 SECONDS (22.8-39.4); INR 1.13 (0.85-1.17); PROTIME 13.4 SECONDS (11.6-15.0)
[2020-11-21 10:30] LABS: D-DIMER-QUANTITATIVE 1.5 ug/mLFEU (0.20-0.54)
[2020-11-21 10:35] LABS: CALC OSMOLALITY 272 mosm/kg (275-300); CALCIUM 9.2 mg/dL (8.5-10.1); CARBON DIOXIDE 28.1 mmol/L (21.0-32.0); CHLORIDE - SERUM 101 mmol/L (98-107); CREATININE - SERUM 1.1 mg/dL (0.6-1.3); GLUCOSE 83 mg/dL (74-106); POTASSIUM - SERUM 3.9 mmol/L (3.5-5.1); SODIUM 135 mmol/L (136-145); UREA NITROGEN 25 mg/dL (7-18); eGFR NON AFRICAN AMERICAN 68 mL/min (90-120)
--- NOTE | 2020-11-21 10:45 | NUR ---
urine collected and sent to lab. yellow and clear.
[2020-11-21 10:54] LABS: ALBUMIN 2.8 g/dL (3.4-5.0); ALKALINE PHOSPHATASE 100 U/L (30-120); ALT (SGPT) 31 U/L (10-68); AMYLASE - SERUM 83 U/L (25-115); BILIRUBIN - TOTAL 0.53 mg/dL (0.2-1.3); CKMB 1.6 U/L (0.0-3.6); CREATINE KINASE 51 UL (21-232); LIPASE 276 U/L (73-393); MAGNESIUM - SERUM 2.1 mg/dL (1.8-2.4); PRO BNP 608 pg/mL (0-450); PROTEIN - SERUM 8.9 g/dL (6.4-8.2); THYROID STIMULATING HORMONE 3.33 uIU/mL (0.36-3.74)
[2020-11-21 10:55] LABS: TROPONIN-I < 0.017 ng/mL (0.000-0.060)
[2020-11-21 11:00] LABS: BILIRUBIN NEGATIVE (NEGATIVE); KETONE NEGATIVE (NEGATIVE); NITRITE NEGATIVE (NEGATIVE); UROBILINOGEN NORMAL mg/dL (< 2)
[2020-11-21 11:01] LABS: SQUAMOUS EPITHELIAL NONE SEEN HPF (0-4); WHITE CELLS - URINE NONE SEEN HPF (0-1)
--- NOTE | 2020-11-21 12:59 | NUR ---
COVID SWABS COLLECTED AND SENT TO LAB.
[2020-11-21 13:33] LABS: SARS-CoV-2 ANTIGEN NEGATIVE- SARS-COV-2 (NEGATIVE)
--- NOTE | 2020-11-21 16:30 | NUR ---
PT ARRIVED TO UNIT FROM ER VIA HOSPITAL BED ACCOMPANIED BY HOSPITAL STAFF. RESP EVEN AND UNLABORED. O2 VIA NC AT 2 LPM. SPEECH IS UNCLEAR BUT PT IS ABLE TO COMMUNICATE. SETTLED INTO ROOM. DENIES NEEDS AT THIS TIME. CLIR. BED IN LOWEST POSITION. SIDE RAILS X2
[2020-11-21 20:09] VITALS: BP 141/74
[2020-11-21 21:31] VITALS: BP 152/69; BMI 17.7
--- NOTE | 2020-11-22 00:59 | NUR ---
PT RESTING IN BED, SWABBED FOR COVID & UA OBTAINED & SENT TO LAB. AWAITING TO GIVE PPD FOR TB. H20 THICKENED PRIOR TO HS MEDICATIONS BEING GIVEN D/T CHOKES WITH EACH DRINK. HX OF THROAT/TONGUE CANCER & HAS HAD PROBLEMS SINCE THEN. DENIES ANY PAIN, JUST WANTED HIS MIRTAZIPINE FOR SLEEP.
[2020-11-22 01:28] VITALS: BP 129/64
[2020-11-22 04:59] LABS: BASOPHILS 0.8 % (0-2); EOSINOPHILS 12.1 % (0-7); HEMATOCRIT 31.9 % (42.0-54.0); HEMOGLOBIN 10.4 g/dL (13.5-17.5); IMMATURE GRANULOCYTES 0.1 % (0-5); LYMPHOCYTE ABS# 1.22 10x3/uL (1.32-3.57); LYMPHOCYTES 15.8 % (15-50); MCH 30.4 pg (26.0-34.0); MCHC 32.6 g/dL (31.0-37.0); MCV 93.3 fL (80.0-100.0); MEAN PLATELET VOLUME 9.4 fL (7.4-10.4); MONOCYTES 8.7 % (2-11); NEUTROPHIL ABS# 4.84 10x3/uL (1.78-5.38); NEUTROPHILS 62.5 % (40-80); PLATELET COUNT 336 10x3/uL (130-400); RBC 3.42 10x6/uL (4.20-6.10); RDW 13.9 % (11.5-14.5)
[2020-11-22 05:07] LABS: WBC 7.7 10x3/uL (4.8-10.8)
[2020-11-22 05:22] LABS: UDS - AMPHET NEGATIVE QUAL (NEGATIVE); UDS - BARB NEGATIVE QUAL (NEGATIVE); UDS - BENZO NEGATIVE QUAL (NEGATIVE); UDS - COCAINE NEGATIVE QUAL (NEGATIVE); UDS - OPIATE NEGATIVE QUAL (NEGATIVE); UDS - PCP NEGATIVE QUAL (NEGATIVE); UDS - THC NEGATIVE QUAL (NEGATIVE)
[2020-11-22 05:29] VITALS: BP 148/63
[2020-11-22 05:41] LABS: ALBUMIN 2.3 g/dL (3.4-5.0); ALKALINE PHOSPHATASE 91 U/L (30-120); BILIRUBIN - TOTAL 0.65 mg/dL (0.2-1.3); CALC OSMOLALITY 277 mosm/kg (275-300); CALCIUM 8.6 mg/dL (8.5-10.1); CARBON DIOXIDE 26.4 mmol/L (21.0-32.0); CHLORIDE - SERUM 104 mmol/L (98-107); CREATINE KINASE 43 UL (21-232); CREATININE - SERUM 1.2 mg/dL (0.6-1.3); GLUCOSE 90 mg/dL (74-106); POTASSIUM - SERUM 3.9 mmol/L (3.5-5.1); PROTEIN - SERUM 7.9 g/dL (6.4-8.2); SODIUM 138 mmol/L (136-145); TROPONIN-I 0.047 ng/mL (0.000-0.060); UREA NITROGEN 19 mg/dL (7-18); eGFR NON AFRICAN AMERICAN 62 mL/min (90-120)
[2020-11-22 05:43] LABS: ALT (SGPT) 47 U/L (10-68)
--- NOTE | 2020-11-22 06:35 | NUR ---
PPD TO RIGHT FOREARM, CIRCLED & DATED. TOLERATED WELL. WILL NEED TO BE READ 11/24 OR 11/25. PT VERY PLEASANT & COOPERATIVE. ENCOURAGED TO ONLY TAKE SMALL SIPS OF LIQUID TO HELP WITH CHOKING ON IT.
--- NOTE | 2020-11-22 07:00 | NUR ---
RECIEVED REPORT. ASSUMED CARE OF PATIENT. PATIENT REMAINS IN AIRBORNE ISOLATION A PUI FOR COVID AND TB. TB SKIN TEST ADMINISTERED TO RIGHT FOREARM BY [place] THIS AM AT APPROX 0600 PER REPORT.
[2020-11-22 07:39] VITALS: BP 125/59
[2020-11-22 08:13] LABS: HEPATITIS C ANTIBODY <0.1 (0.0-0.9)
[2020-11-22 08:43] VITALS: Ht 185.4 cm; Wt 60.8 kg
--- NOTE | 2020-11-22 10:30 | NUR ---
PATIENTS BROUGHT PERSONAL SUITCASE TO UNIT AND ASKED FOR IT TO BE GIVEN TO PATIENT, STATED IT HAD CLOTHES AND PERSONAL SHAVING EQUIPMENT. THANKED PATIENTS . SUITCASE PROVIDED TO PATIENT.
[2020-11-22 11:09] VITALS: BP 112/60
--- NOTE | 2020-11-22 11:31 | NUR ---
PATIENT NOTED TO COUGH FREQUENTLY AFTER GETTING DRINKS OF H2O. INFORMED PATIENT OF THE NEED FOR SPEECH EVAL, MAYBE HE WOULD BENEFIT FROM THICKENED LIQUIDS, PATIENT SHOOK HIS HEAD YES. THIS CLERICAL SECRETARY ASKED PATIETN IF HE WAS SUPPOSED TO HAVE THICKENED LIQUIDS AND AGAIN HE INDICATED "YES" WITH NODDING OF HIS HEAD. PATIENT HAS HX OF TONGUE AND THROAT CANCER.
--- NOTE | 2020-11-22 11:34 | NUR ---
PATIENT INDICATED YES TO NECTAR THICK LIQUIDS WHEN ASKED IF HIS LIQUIDS WERE NECTAR OR OF HONEY CONSISTENCY.
--- NOTE | 2020-11-22 13:27 | NUR ---
PCN ALLERGY?? QUESTIONED PATIENT TYPE OF REACTION HE HAS AND HE SAYS HE DOESN'T KNOW. ASKED PATIENT IF HE IS ALLERGIC TO PCN AND HE SAID NO. INFORMED PATIENT PCN IS LISTED AN ALLERGY ON HIS CHART. CALLED AND SPOKE TO PATIENTS AND SHE STATES SHE DOES NOT KNOW EITHER. PATIENT WAS ADMINISTERED ROCEPHIN ON 11/21/20 WITH NO ADVERSE EFFECTS REPORTED.
--- NOTE | 2020-11-22 13:39 | NUR ---
PATIENTS RETURNED CALL, SHE STATES SHE SPOKE WITH HIS SISTER AND THE PATIENT HAS NEVER BEEN ALLERGIC TO PCN, THEY HAVE KEPT THAT ON HIS RECORD DUE TO THE PATIENTS MOTHERS, BROTHER HAD A REACTION (TIME PERIOD OF LIKE 90 YEARS AGO). THE PATIENTS SISTER HAS BEEN TESTED BY IMMUNOLOGY AND SHE IS NOT ALLERGIC TO PCN. THANKED PATIENTS FOR THIS INFORMATION.
[2020-11-22 15:44] VITALS: BP 118/59
--- NOTE | 2020-11-22 16:30 | NUR ---
PATIENT RESTING WELL IN BED. CALL LIGHT WITHIN REACH. DINNER TRAY SERVED TO PATIENT. DENIES NEEDS. NO DISTRESS. IV FLUIDS INFUSING ORDERED.
[2020-11-22 19:58] VITALS: BP 130/78
[2020-11-23 00:55] VITALS: BP 126/48
--- NOTE | 2020-11-23 01:04 | NUR ---
ASSISTED PT WITH SHOWER/DRESSING/ADL'S/CLC. REQUIRES SBA WITH AMBULATION, UNSTEADY GAIT, SHUFFLES FEET THEN LUNGES FORWARD. ASSISTED PT TO FLOOR X1 D/T THIS. NO INJURY NOTED/REPORTED. PT STATES THAT HE FALLS LIKE THIS SEVERAL TIMES A WEEK AT HOME. STATES THAT HE FEELS SO MUCH BETTER AFTER SHOWER. NECTAR THICK LIQUIDS AT BEDSIDE. WILL CONTINUE TO MONITOR
[2020-11-23 06:14] VITALS: BP 125/58
--- NOTE | 2020-11-23 06:25 | NUR ---
PT PLEASANT/COOPERATIVE. STATES THAT HE SLEPT WELL LAST NOC. AM MED GIVEN TO HIM.
--- NOTE | 2020-11-23 07:00 | NUR ---
RECEIVED REPORT. ASSUMED CARE OF PATIENT. PATIENT REMAINS IN ISOLATION FOR PUI COVID/TB, AWAITING RESULTS. TB TO BE READ IN AM. NO DISTRESS.
[2020-11-23 07:54] VITALS: BP 138/67
--- NOTE | 2020-11-23 09:56 | CN ---
PATIENT NAME:MELVIN SYED MEDICAL RECORD: [id number] : 40 LOCATION:D. D.2140 ADMIT DATE: 11/21/20 ACCOUNT: [id number] CONSULTING PHYSICIAN: BAR TONEY MD REFERRING PHYSICIAN: NAVNEET MEHTA MD DATE OF CONSULTATION: 11/21/2020 HISTORY OF PRESENT ILLNESS: A 79-year-old gentleman with a history of Parkinson's, obstructive pulmonary disease with throat cancer, status post radiation XRT presented with generalized progression of weakness, some shortness of breath and cough, generalized failure to thrive, was found to be bradycardic; however, was actually found to have PVCs including trigeminy at this point. No syncope, but does have some falls, history of generalized debility. We are asked to see him concerning his cardiovascular status. PAST MEDICAL HISTORY: 1. History of throat cancer. 2. Parkinson's disease. 3. Osteoarthritis. 4. Hypothyroidism. ALLERGIES: PENICILLIN. CHRONIC MEDICATIONS: Include Remeron 15 mg p.o. every day, Sinemet 25/250 two tabs q.i.d., and Synthroid 50 mcg a day. SOCIAL HISTORY: Quit smoking previously. Nondrinker. Does need assistance with ADLs. Does have frequent falls. No recent exercise or PT, etc. REVIEW OF SYSTEMS: The patient reports easy bruising but reports no swollen glands. The patient reports no fever, no night sweats, no significant weight gain, no significant weight loss. No significant exercise tolerance. The patient reports no dry eyes, no irritation, no vision change. Patient reports no difficulty hearing and no ear pain. Patient reports no frequent nose bleeds or nose and sinus problems. Patient reports on arm pain on exertion. No shortness of breath while lying down. No history of heart murmur. Patient reports no cough, no wheezing or coughing up blood. Patient reports no abdominal pain, no vomiting. Normal appetite. No diarrhea and not vomiting blood. No nausea and no constipation. Patient reports no incontinence. No difficulty urinating. No hematuria. No increased frequency. Patient reports no muscle aches. No weakness, no arthralgias, no back pain. No swelling of the extremities. Patient reports no abnormal mole, no jaundice, no rashes. Reports no loss of consciousness. No weakness and no numbness. No seizures, dizziness, or headaches. The patient reports no depression, no sleep disturbance, feeling safe in a relationship and no alcohol abuse. Patient reports on fatigue. Reports no runny nose or sinus pressure. No itching, no hives, and no frequent sneezing. PHYSICAL EXAMINATION: GENERAL: Chronically ill-appearing in no acute distress. VITAL SIGNS: Blood pressure 123/51, pulse 64. Currently in quadrigeminy by my exam. HEENT: Temporal wasting is present. NECK: No bruits noted. HEART: Regular. Occasional extrasystole. II/ systolic pressures. CONSULT REPORT [id number] MELVIN SYED LUNGS: Fair excursion. ABDOMEN: Soft and nontender. Pulses 1+. EXTREMITIES: No edema. IMPRESSION: Frequent PVCs. No high-grade arrhythmias on telemetry. We will check echocardiographic study to ensure structurally sound LV. Further recommendations based on clinical course. TRANSINT:[id number] Voice Confirmation ID: [id number] DOCUMENT ID: [id number] BAR TONEY MD at 0956 CC: [id number] DICTATION DATE: 11/21/20 170 [facility] ASSISTANT: 11/22/20 0232 ADM IN [facility] [address] [id number]
--- NOTE | 2020-11-23 11:00 | NUR ---
RESTING WELL. NO DISTRESS. DENIES NEEDS. CALL LIGHT WITHIN REACH.
--- NOTE | 2020-11-23 12:00 | NUR ---
NOON MEAL SERVED AND SET UP FOR PATIENT. NO DISTRESS.
--- NOTE | 2020-11-23 15:30 | NUR ---
ASSISTED PATIENT FROM BED TO RESTROOM AND BACK TO BED AT THIS TIME. AMBULATES WELL WITH STAND BY ASSIST.
[2020-11-23 17:48] VITALS: BP 145/59
[2020-11-23 22:06] VITALS: BP 117/49
--- NOTE | 2020-11-23 23:28 | NUR ---
PT LAYING IN BED AAO X4. PT REFUSED HIS SINEMET STATING IT KEEPS HIM AWAKE. PT IS DIFFICULT TO UNDERSTAND. APPEARS TO BE FRUSTRATED HAVING TO CALL FOR HELP TO RESTROOM. EDUCATION DONE WITH PATIENT ON FALL RISK AND SAFETY. PT NODDED IN UNDERSTANDING. PT GIVEN THICKENED WATER AND DENIES PAIN OR DISCOMFORT AT THIS TIME. 2L BNC IN PLACE AND VITALS WNL.
[2020-11-24 05:33] VITALS: BP 158/70
[2020-11-24 06:00] LABS: BASOPHILS 0.8 % (0-2); EOSINOPHILS 15.1 % (0-7); HEMATOCRIT 30.4 % (42.0-54.0); HEMOGLOBIN 9.9 g/dL (13.5-17.5); LYMPHOCYTE ABS# 1.25 10x3/uL (1.32-3.57); LYMPHOCYTES 26.3 % (15-50); MCH 30.3 pg (26.0-34.0); MCHC 32.6 g/dL (31.0-37.0); MEAN PLATELET VOLUME 9.6 fL (7.4-10.4); MONOCYTES 11.3 % (2-11); NEUTROPHIL ABS# 2.21 10x3/uL (1.78-5.38); NEUTROPHILS 46.5 % (40-80); PLATELET COUNT 325 10x3/uL (130-400); RBC 3.27 10x6/uL (4.20-6.10); RDW 13.5 % (11.5-14.5); WBC 4.8 10x3/uL (4.8-10.8)
[2020-11-24 06:33] LABS: ALBUMIN 2.2 g/dL (3.4-5.0); ALKALINE PHOSPHATASE 87 U/L (30-120); ALT (SGPT) 16 U/L (10-68); BILIRUBIN - TOTAL 0.42 mg/dL (0.2-1.3); CALC OSMOLALITY 273 mosm/kg (275-300); CALCIUM 8.4 mg/dL (8.5-10.1); CARBON DIOXIDE 27.5 mmol/L (21.0-32.0); CHLORIDE - SERUM 105 mmol/L (98-107); GLUCOSE 83 mg/dL (74-106); POTASSIUM - SERUM 3.8 mmol/L (3.5-5.1); PROTEIN - SERUM 7.6 g/dL (6.4-8.2); SODIUM 137 mmol/L (136-145); UREA NITROGEN 15 mg/dL (7-18); eGFR NON AFRICAN AMERICAN 76 mL/min (90-120)
--- NOTE | 2020-11-24 07:04 | NUR ---
RECEIVED REPORT. ASSUMED CARE OF PATIENT. PATIENT REMAINS IN AIRBORNE ISOLATION FOR POSSIBLE TB AND IS A PUI FOR COVID. AWAITING RESULTS OF PCR. RESTING WITH EYES CLOSED, EASILY AROUSED. CALL LIGHT WITHIN REACH. NO DISTRESS.
[2020-11-24 08:04] VITALS: BP 120/60
--- NOTE | 2020-11-24 09:34 | NUR ---
PPD TO RIGHT FOREARM READ NEGATIVE. NO REDNESS OR INDURATION NOTED. PATIENT ALSO REPORTED TO HAVE NEGATIVE COVID PCR AT THIS TIME.
[2020-11-24 12:00] VITALS: BP 122/68
--- NOTE | 2020-11-24 14:11 | NUR ---
Nutrition Follow-up: Pt in airborne isolation this AM; covid & TB skin test now negative. Nursing reports pt eating ok. ST eval pending. Diet: Diabetic, [place] Thick Liquids, Boost TID PO intake: 50% x 3 (11/22) No new wt; last wt: 134# (11/22) Labs noted: Ca 8.4, Alb 2.2 Meds noted: Florajen, Protonix, Remeron, NS @ 50, electrolyte protocol -Encourage PO intake and honor food preferences within diet restrictions. -Need new wt. -RD will follow up within 3-4 days.
[2020-11-24 15:02] VITALS: BP 126/64
--- NOTE | 2020-11-24 16:00 | NUR ---
PER , PATIENT CAN RE REMOVED FROM ISOLATION. PATIENT NEGATIVE PCR AND TB NEG. PATIENT AND HIS SPOUSE MADE AWARE OF REMOVAL FROM ISOLATION.
[2020-11-24 20:00] VITALS: BP 128/62
[2020-11-25] VITALS: BP 136/57
--- NOTE | 2020-11-25 03:57 | NUR ---
PT RESTED COMFORTABLY ALL NIGHT. PT HAS HAD NO COMPLAINTS OF PAIN. RR E/U NO S/S OF DISTRESS. ASSISTED PT TO BATHEROOM. BED LOW CALL LIGHT WITHIN REACH. WILL CINTINUE TO MONITOR.
[2020-11-25 04:00] VITALS: BP 167/77
--- NOTE | 2020-11-25 05:09 | NUR ---
I have reviewed this patient and I concur with the Shift Assessment completed by the Licensed Practical Nurse today this shift.
[2020-11-25 05:58] LABS: BASOPHILS 0.5 % (0-2); EOSINOPHILS 11.2 % (0-7); HEMATOCRIT 32.1 % (42.0-54.0); HEMOGLOBIN 10.4 g/dL (13.5-17.5); IMMATURE GRANULOCYTES 0.2 % (0-5); MCH 30.1 pg (26.0-34.0); MCHC 32.4 g/dL (31.0-37.0); MEAN PLATELET VOLUME 10.2 fL (7.4-10.4); MONOCYTES 9.8 % (2-11); NEUTROPHIL ABS# 3.75 10x3/uL (1.78-5.38); NEUTROPHILS 59.3 % (40-80); PLATELET COUNT 360 10x3/uL (130-400); RBC 3.45 10x6/uL (4.20-6.10); RDW 13.7 % (11.5-14.5)
[2020-11-25 06:00] LABS: WBC 6.3 10x3/uL (4.8-10.8)
[2020-11-25 06:20] LABS: ALBUMIN 2.3 g/dL (3.4-5.0); ANION GAP 10.4 mmol/L (8-16); BILIRUBIN - TOTAL 0.44 mg/dL (0.2-1.3); CALCIUM 8.3 mg/dL (8.5-10.1); CARBON DIOXIDE 27.4 mmol/L (21.0-32.0); CREATININE - SERUM 1.1 mg/dL (0.6-1.3); MAGNESIUM - SERUM 1.9 mg/dL (1.8-2.4); POTASSIUM - SERUM 3.8 mmol/L (3.5-5.1); PROTEIN - SERUM 7.8 g/dL (6.4-8.2)
--- NOTE | 2020-11-25 08:48 | EC ---
PATIENT:MELVIN SYED DATE OF SERVICE: 11/21/20 SEX: M MEDICAL RECORD: [id number] DATE OF : [birth year] LOCATION:D.M2 D.214 AGE OF PATIENT: 79 ADMISSION DATE: 11/21/20 REFERRING PHYSICIAN: INTERPRETING PHYSICIAN: BAR TONEY MD ECHOCARDIOGRAM REPORT ECHO CHARGES 4 ECHO COMPLETE Date: 11/22/20 CLINICAL DIAGNOSIS: TRIGEMINY ECHOCARDIOGRAPHIC MEASUREMENTS (adult normal given) AC root (d.<3.7cm) 3.4 cm LV Septum d (<1.2 cm> 1.3 cm Valve Excursion 2.3 cm LV Septum (systole) 1.6 cm Left Atria (s.<4.0cm> 2.0 cm LVPW d(<1.2cm) 1.2 cm RV (d.<2.3cm) 2.1 cm LVPW (sytole) 1.8 cm LV diastole(<5.6CM) 4.2 cm MV E-F(>70mm/sec) cm LV systole 2.2 cm LVOT Diameter 2.0 cm MV exc.(>10mm) cm Est.ejection fraction (50-75%) % DOPPLER: LVIT cm/sec A 88.0 cm/sec E 92.0 cm/sec LA cm/sec RVSP 42.0 mmHg LVOT 155 cm/sec AOP1/2T m/s Asc. Ao 189 cm/sec RVOT 73.0 cm/sec RA cm/sec PA 73.0 cm/sec AV Gradient Peak 14.3 mmHg AV Mean 6.8 mmHg AV Area 2.3 cm MV Gradient Peak 4.1 mmHg MV Mean 1.6 mmHg MV Area cm COMMENTS: [employer] Developer: 1 JOSH JONESOE Safety Manager: 3 Dr. Fletcher TAPE# PACS Pericardial Effusion N DATE OF SERVICE: Adequate 2D, color flow imaging, spectral Doppler, and M-Mode. Borderline to mild LVH. LV internal dimensions are normal. Wall motion is normal. EF is greater than or equal to 55%. Aortic valve is sclerotic. No evidence of stenosis by Doppler interrogation. There is mild AI by color flow imaging. Left atrium is normal. Mitral valve shows no prolapse. Trace MR. Right side is grossly normal. Moec-me-kdpoznhi TR. ECHOCARDIOGRAM REPORT [id number] MELVIN SYED TRANSINT:[id number] Voice Confirmation ID: [id number] DOCUMENT ID: [id number] BAR TONEY MD at 0848 CC: [id number] DICTATION DATE: 11/23/20 111 FIELD SUPPORT REP: 11/23/20 1501 ADM IN [facility] [address] [place] [address]
[2020-11-25 08:57] VITALS: BP 123/53
[2020-11-25 12:38] VITALS: BP 111/54
[2020-11-25 15:42] VITALS: BP 106/45
[2020-11-25 20:00] VITALS: BP 140/71
[2020-11-26 04:00] VITALS: BP 114/49
[2020-11-26 05:05] LABS: BASOPHILS 0.7 % (0-2); HEMATOCRIT 29.8 % (42.0-54.0); HEMOGLOBIN 9.8 g/dL (13.5-17.5); LYMPHOCYTE ABS# 1.42 10x3/uL (1.32-3.57); LYMPHOCYTES 24.6 % (15-50); MCH 30.3 pg (26.0-34.0); MCHC 32.9 g/dL (31.0-37.0); MCV 92.3 fL (80.0-100.0); MEAN PLATELET VOLUME 9.7 fL (7.4-10.4); MONOCYTES 9.2 % (2-11); NEUTROPHIL ABS# 3.32 10x3/uL (1.78-5.38); NEUTROPHILS 57.5 % (40-80); PLATELET COUNT 341 10x3/uL (130-400); RBC 3.23 10x6/uL (4.20-6.10); RDW 13.6 % (11.5-14.5); WBC 5.8 10x3/uL (4.8-10.8)
[2020-11-26 05:26] LABS: ALBUMIN 2.2 g/dL (3.4-5.0); ANION GAP 11.9 mmol/L (8-16); BILIRUBIN - TOTAL 0.49 mg/dL (0.2-1.3); CALCIUM 8.2 mg/dL (8.5-10.1); CARBON DIOXIDE 25.8 mmol/L (21.0-32.0); CREATININE - SERUM 1.1 mg/dL (0.6-1.3); MAGNESIUM - SERUM 1.9 mg/dL (1.8-2.4); POTASSIUM - SERUM 3.7 mmol/L (3.5-5.1); PROTEIN - SERUM 7.6 g/dL (6.4-8.2)
--- NOTE | 2020-11-26 07:15 | NUR ---
PT LYING IN BED WITH EYES CLOSED. RAISES TO VERBAL STIMULI. RESP EVEN AND UNLABORED. AAOX4. PT'S SPEECH IS DIFFICULT TO UNDERSTAND BUT HE IS ABLE TO MAKE NEEDS KNOWN. DENIES ANY NEEDS AT THIS TIME. CLIR. BED IN LOWEST POSITION. SIDE RAILS X2
[2020-11-26 08:00] VITALS: BP 146/62
[2020-11-26 11:00] VITALS: BP 140/63
--- NOTE | 2020-11-26 13:40 | NUR ---
SITED 22 GUAGE IN RIGHT FOREARM.
--- NOTE | 2020-11-26 13:41 | NUR ---
Nutrition Follow-up: WEB DEVELOPER recs PEG. Surgery consulted. Diet: Diabetic, [place] Thick Liquids, Boost TID No new wt; last wt: 134# (11/22) Labs noted: Ca 8.2, Alb 2.2 Meds noted: Florajen, Remeron, Protonix, NS @ 50 -When PEG placed, rec Osmolite 1.5 @ goal rate of 45 mL/hr; provides 1620 kcal (76-106% est needs) and 68 g protein (85-111% est needs) daily. -Need new wt. -RD follow-up: 11/28
--- NOTE | 2020-11-26 14:39 | NUR ---
GT BELT, PATIENT MIN ASST TO GET UP TO BEDSIDE AND TO STAND. PATIENT WALKED 250 FEET WITH WALKER WITH MIN ASST. SAT IN CHAIR AFTER WALK.
[2020-11-26 15:00] VITALS: BP 143/69
--- NOTE | 2020-11-26 16:55 | NUR ---
OT NOTE: PT COMPLETED SUPINE TO SIT WITH SBA. PT COMPLETED EOB SITTING BALANCE WITH SBA. PT COMPLETED TOILETING TASK WITH CGA. PT COMPLETED CATALINA/DOFF SOCKS WITH SBA. PT COMPLETED HAIR GROOMING WITH SETUP. PT COMPLETED ADL MOB WITH CGA USING RW. PT DID EXHIBIT MILD IMPULSIVITY. [phone] THANK YOU,GABE JIANG
--- NOTE | 2020-11-26 18:55 | NUR ---
PT SITTING IN CHAIR AT BS NO ACUTE DISTRESS NOTED WILL CONTINUE TO MONITOR
[2020-11-26 20:19] VITALS: BP 136/60
[2020-11-27 03:47] VITALS: BP 155/62
[2020-11-27 07:09] LABS: BASOPHILS 0.4 % (0-2); EOSINOPHILS 10.8 % (0-7); HEMATOCRIT 30.8 % (42.0-54.0); HEMOGLOBIN 10.1 g/dL (13.5-17.5); LYMPHOCYTE ABS# 1.23 10x3/uL (1.32-3.57); LYMPHOCYTES 21.7 % (15-50); MCH 30.3 pg (26.0-34.0); MCHC 32.8 g/dL (31.0-37.0); MCV 92.5 fL (80.0-100.0); MEAN PLATELET VOLUME 9.9 fL (7.4-10.4); MONOCYTES 9.5 % (2-11); NEUTROPHIL ABS# 3.27 10x3/uL (1.78-5.38); NEUTROPHILS 57.6 % (40-80); PLATELET COUNT 350 10x3/uL (130-400); RBC 3.33 10x6/uL (4.20-6.10); RDW 13.8 % (11.5-14.5); WBC 5.7 10x3/uL (4.8-10.8)
[2020-11-27 07:38] LABS: ALBUMIN 2.4 g/dL (3.4-5.0); ALKALINE PHOSPHATASE 85 U/L (30-120); ALT (SGPT) 31 U/L (10-68); BILIRUBIN - TOTAL 0.46 mg/dL (0.2-1.3); CALC OSMOLALITY 278 mosm/kg (275-300); CALCIUM 8.3 mg/dL (8.5-10.1); CARBON DIOXIDE 27.5 mmol/L (21.0-32.0); CHLORIDE - SERUM 105 mmol/L (98-107); GLUCOSE 75 mg/dL (74-106); MAGNESIUM - SERUM 1.9 mg/dL (1.8-2.4); POTASSIUM - SERUM 4.1 mmol/L (3.5-5.1); PROTEIN - SERUM 7.4 g/dL (6.4-8.2); SODIUM 140 mmol/L (136-145); UREA NITROGEN 16 mg/dL (7-18); eGFR NON AFRICAN AMERICAN 76 mL/min (90-120)
[2020-11-27 17:35] VITALS: BP 128/59
--- NOTE | 2020-11-27 17:48 | NUR ---
OT NOTE: NURSING CLEARED PT FOR THERAPY. PT COMPLETED ORAL CARE WITH GLYCERIAN SWAB WITH MAX A. PT COMPLETED BED MOB WITH MIN A. PT COMPLETED EOB SITTING BALANCE WITH SPV. PT COMPLETED SCOOTING TO HEAD OF BED WITH CGA. [phone] THANK YOU,GABE JIANG
[2020-11-27 20:59] VITALS: BP 126/64
[2020-11-27 23:11] VITALS: BP 123/56
--- NOTE | 2020-11-27 23:17 | NUR ---
PEG PLACED TODAY, PER ST NOTES PT FAILED SE, RECOMMENDED NPO. NPO ORDER PLACED.
--- NOTE | 2020-11-27 23:27 | NUR ---
PEG PLACEMENT VERIFIED BY AUDIBLE AIR AUSCULTATION MEDS GIVEN PER PEG, PER MD ORDER, FLUSHED WITH 30 CC WATER ERROL PT TOLERATED WELL. NO DISTRESS NOTED WILL CONTINUE TO MONITOR
--- NOTE | 2020-11-28 01:02 | NUR ---
nurse heard pt getting OOb before nurse could get in room loud jacqueline heard, pt noted to be getting up out of floor when nurse enetered room, pt reports he was reachigfor his urinal and tripped. reports no new injury just peeled scabs from right knee and right elbow. BP 155/70 HR 66 O2 sat 97% on RA. Pt did pull right FA PIV out, this is resited to right upper FA 22 gauge x1 stick. Pt toelrated well no distress noted. call light, cell phone in reach, bed larm active, urinal at bedside. 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
[2020-11-28 04:02] VITALS: BP 156/75
[2020-11-28 06:26] LABS: ALBUMIN 2.4 g/dL (3.4-5.0); ANION GAP 11.6 mmol/L (8-16); BILIRUBIN - TOTAL 0.66 mg/dL (0.2-1.3); CALCIUM 8.3 mg/dL (8.5-10.1); CARBON DIOXIDE 27.1 mmol/L (21.0-32.0); CREATININE - SERUM 1.1 mg/dL (0.6-1.3); MAGNESIUM - SERUM 1.9 mg/dL (1.8-2.4); POTASSIUM - SERUM 3.7 mmol/L (3.5-5.1); PROTEIN - SERUM 8.2 g/dL (6.4-8.2)
[2020-11-28 06:27] LABS: BASOPHILS 0.4 % (0-2); EOSINOPHILS 8.1 % (0-7); HEMATOCRIT 32.4 % (42.0-54.0); HEMOGLOBIN 10.4 g/dL (13.5-17.5); IMMATURE GRANULOCYTES 0.2 % (0-5); LYMPHOCYTE ABS# 1.03 10x3/uL (1.32-3.57); MCH 29.9 pg (26.0-34.0); MCHC 32.1 g/dL (31.0-37.0); MCV 93.1 fL (80.0-100.0); MEAN PLATELET VOLUME 10.1 fL (7.4-10.4); MONOCYTES 13.4 % (2-11); NEUTROPHILS 58.9 % (40-80); PLATELET COUNT 323 10x3/uL (130-400); RBC 3.48 10x6/uL (4.20-6.10); RDW 13.6 % (11.5-14.5); WBC 5.4 10x3/uL (4.8-10.8)
[2020-11-28 08:37] VITALS: BP 119/62
[2020-11-28 12:25] VITALS: BP 96/43
--- NOTE | 2020-11-28 14:14 | NUR ---
Nutrition Consult/Reassessment: POD 1 PEG placement. Received consult for TF. Per , pt with previous PEG and performed bolus feeds at home; would like to do bolus feeds when d/c'd. ST following; not safe for PO intake currently. No new wt; last wt: 134# (11/22) Labs noted: Ca 8.3, Alb 2.4 Meds noted: Florajen, Protonix, Remeron, NS @ 50, electrolyte protocol -Nutrition needs unchanged from initial assessment; no new wt available. -Start Osmolite 1.5 @ 20 mL/hr and increase by 10 mL/hr q 6 hrs to goal rate of 45 mL/hr (provides 1620 kcal [76-106% est needs] & 68 g protein [85-112% est needs] daily) + H2O flushes 30 mL q hr. -When d/c'd home, rec Osmolite 1.5 - 5 cartons/day (provides 1775 kcal [83-116% est needs] and 74.5 g protein [93-122% est needs] daily) + H2O flushes 60 mL before and after each carton & with meds. -Need new wt. -RD follow-up: 12/01 Thanks for the consult!
--- NOTE | 2020-11-28 14:35 | NUR ---
OSMOLYTE INCREASED TO 30 CC/HOUR AFTER PATIENT DENIES AND STOMACH DISCOMFORT
--- NOTE | 2020-11-28 14:48 | NUR ---
PATIENT HAD FALL LAST NIGHT OR EARLY AM. NSG CLEARED PATIENT FOR THERAPY. GT BELT, PATIENT WAS MIN ASST TO GET UP TO BEDSIDE AND TO STAND. PATIENT WALKED IN [place] FOR 110 FEET WITH MIN ASST, BUT HE WAS UNSTEADY AND HIS RIGHT FOOT WOULD LAG BEHIND. NOTIFIED THE PT OF DECREASED INDEPENDENCE AND SAFETY WITH FUNCTIONAL MOBILITY.
--- NOTE | 2020-11-28 15:24 | NUR ---
OT NOTE: NURSING CLEARED PT FOR THERAPY . PT COMPLETED DOFF/CATALINA SOCKS WITH MIN A. PT COMPLETED THREADING PANTS WITH MIN A. PT COMPLETED HAIR HYGIENE WTH SETUP. PT COMPLETED ADL MOB WITH MIN A. PT REQUIRED INCREASED PHYSICAL ASSIST WITH DYNAMIC BALANCE ACTIVITIES. [phone] THANK YOU,GABE JIANG
[2020-11-28 15:42] VITALS: BP 95/51
[2020-11-28 20:54] VITALS: BP 128/52
[2020-11-29 01:56] VITALS: BP 108/51
--- NOTE | 2020-11-29 05:08 | NUR ---
PEG PLACMEENT VERIFIED WITH AUDIBLE AIR AUSCULTATION, NO RESIDUAL INCREASED TF TO 45 ML/HR WHICH IS GOAL RATE. PT TOLERATED WELL. WILL CONTINUE TO MONITOR
[2020-11-29 06:43] VITALS: BP 122/45
--- NOTE | 2020-11-29 08:10 | NUR ---
AM ROUNDING PERFORMED. PATIENT ASSISTED TO POSITION OF COMFORT. NAD. DENIES NEEDS.
[2020-11-29 09:00] VITALS: BP 109/51
--- NOTE | 2020-11-29 10:28 | NUR ---
DAILY ASSESSMENT COMPLETE, SCHEDULED MEDICATIONS ADMINISTERED, AT BEDSIDE. NAD, DENIES NEEDS. URINAL EMPTIED OF 450ML URINE.
[2020-11-29 11:28] LABS: BASOPHILS 0.4 % (0-2); EOSINOPHILS 4.4 % (0-7); HEMATOCRIT 30.4 % (42.0-54.0); HEMOGLOBIN 9.9 g/dL (13.5-17.5); IMMATURE GRANULOCYTES 0.2 % (0-5); LYMPHOCYTE ABS# 0.95 10x3/uL (1.32-3.57); MCH 30.1 pg (26.0-34.0); MCHC 32.6 g/dL (31.0-37.0); MCV 92.4 fL (80.0-100.0); MEAN PLATELET VOLUME 9.9 fL (7.4-10.4); MONOCYTES 10.3 % (2-11); NEUTROPHIL ABS# 3.08 10x3/uL (1.78-5.38); NEUTROPHILS 64.7 % (40-80); PLATELET COUNT 294 10x3/uL (130-400); RBC 3.29 10x6/uL (4.20-6.10); RDW 13.7 % (11.5-14.5); WBC 4.8 10x3/uL (4.8-10.8)
[2020-11-29] MEDS ORDERED: ROBITUSSIN DM 110 ML PEG (11:37)
[2020-11-29] MEDS ORDERED: FLORAJEN3 CAPS460 MG PO (11:37)
[2020-11-29] MEDS ORDERED: LEVOFLOXACIN500 MG PO (11:39)
[2020-11-29] MEDS ORDERED: CLEOCIN HCL300 MG PO (11:39)
--- NOTE | 2020-11-29 11:45 | NUR ---
PATIENT ROUNDING PERFORMED, DR HELLER AT BEDSIDE. INFORMED OF PATIENT STATUS THROUGH THE MORNING. PATIENT DISPLAYS EYE MOVEMENT, AND LIP QUIVERING.
[2020-11-29 11:48] LABS: ALBUMIN 2.4 g/dL (3.4-5.0); ANION GAP 9.2 mmol/L (8-16); BILIRUBIN - TOTAL 0.48 mg/dL (0.2-1.3); CALCIUM 8.4 mg/dL (8.5-10.1); CARBON DIOXIDE 28.7 mmol/L (21.0-32.0); CREATININE - SERUM 1.2 mg/dL (0.6-1.3); POTASSIUM - SERUM 3.9 mmol/L (3.5-5.1); PROTEIN - SERUM 7.8 g/dL (6.4-8.2)
--- NOTE | 2020-11-29 12:00 | NUR ---
COPY OF ORDERS AND PROGRESS NOTES PROVIDED TO CARLOS WITH [facility], ALSO GIVEN UPDATE ON THE PATIENT. AT BEDSIDE FOR ASSESSMENT.
--- NOTE | 2020-11-29 12:34 | MORECARE ---
CASE MANAGEMENT DISCHARGE SUMMARY PATIENT: MELVIN YEUNG UNIT: [id number] ADM DATE: 11/21/20 AGE: 79 : 40 SEX: M ROOM/BED: D.2140 AUTHOR: LACY CHIU PHYSICIAN: REFERRING PHYSICIAN: NAVNEET MEHTA MD DATE OF SERVICE: 11/29/20 Case Management Discharge Planning Summary COMMENTS ENTERED DATE: 11/29/20 12:27 CT COMMENT TYPE: Discharge Planning REVIEWER: Prince Zimmerman HOME WITH [facility]/PT and BOLUS FEEDINGS. CM met with patient to complete DC plan and to evaluate needs. Patient is dependent for ADL's and Mobility. Patient Lives with his , Destiny Yeung, , a retired Speech Therapist. Patient and are present. Mrs. Yeung stated that their home is safe and has electricity and running water. Mrs. Yeung stated that the home has 3 steps to enter and they are able to manage the steps without difficulty. Mrs. Yeung stated that they have no problems paying for medications and they fill their medications at [facility] Mrs. Yeung stated that the patient's a primary care physician, is Dr. Garcia but his PA is filling in at this time. At discharge, the patient plans to return home and feels this is a safe discharge. CM discussed availability of home health, rehab services, and medical equipment. Patient declined SNF, IPR, and DME. Mrs. Yeung stated that she would like HHS with [facility] and would also like PT with them. [facility] Leslie stated that SOC will be 02 December 2020. PAZ signed and placed in chart. Clinical documents faxed to [facility]. Mrs. Yeung stated that she will be administering the bolus for meals and has some experience with administering feeding boluses but would like some refresher training before DC. CM notified staff nurse that education on bolus feedings is desired by family. Mrs. Yeung stated that the patient has a cane, walker, shower chair, Hillrom vest for breaking up mucus, and a nebulizer. No other needs were voiced and at this time Mrs. Yeung and patient are satisfied with DC plan. Transportation provider at discharge will be with the patient's , Destiny. DC IMM delivered, explained, signed by the patient, and placed in chart. Signed form also left with the patient. CM will continue to follow and will assist as needed with dc plans/needs. DCP REVIEW SUMMARY ANTICIPATED D/C DATE: 11/29/2020 EXPECTED LOS : 8 CASE STATUS: DCP Initiated INITIAL REVIEW: 11/21/2020 INITIAL REVIEWER: Prince Zimmerman FINAL DISCHARGE DISPOSITION: : FINAL REVIEWER: FINAL REVIEW DATE: DCP Focus Questions & Answers QUESTION: ANSWER : PATIENT: MELVIN YEUNG V ENCOUNTER: [id number] MEDICAL RECORD#: [id number] ADMISSION DATE: 11/21/2020 DISCHARGE DATE: ATTENDING MD: NAVNEET BAINS : AGE: 79 MARITAL STATUS: M DC PLAN ID: [id number] FACILITY: [facility] PRINTED ON: 11/29/20 12:34 CT All edits/amendments must be made on the electronic document DICTATION DATE: 11/29/20 1234 GRAPE CUTTER: ANTHONY 11/29/20 1234 RPT#: [id number] DC DATE: STATUS: ADM IN [facility] [address] [place] [address] END OF REPORT
[2020-11-29 12:35] VITALS: BP 109/42
--- NOTE | 2020-11-29 12:47 | MORECARE ---
CASE MANAGEMENT DISCHARGE SUMMARY PATIENT: MELVIN YEUNG UNIT: [id number] ADM DATE: 11/21/20 AGE: 79 : 40 SEX: M ROOM/BED: D.2140 AUTHOR: LACY CHIU PHYSICIAN: REFERRING PHYSICIAN: NAVNEET MEHTA MD DATE OF SERVICE: 11/29/20 Case Management Discharge Planning Summary COMMENTS ENTERED DATE: 11/29/20 12:27 CT COMMENT TYPE: Discharge Planning REVIEWER: Prince Zimmerman HOME WITH [facility]/PT and BOLUS FEEDINGS. CM met with patient to complete DC plan and to evaluate needs. Patient is dependent for ADL's and Mobility. Patient Lives with his , Destiny Yeung, , a retired Speech Therapist. Patient and are present. Mrs. Yeung stated that their home is safe and has electricity and running water. Mrs. Yeung stated that the home has 3 steps to enter and they are able to manage the steps without difficulty. Mrs. Yeung stated that they have no problems paying for medications and they fill their medications at [facility] Mrs. Yeung stated that the patient's a primary care physician, is Dr. Garcia but his PA is filling in at this time. At discharge, the patient plans to return home and feels this is a safe discharge. CM discussed availability of home health, rehab services, and medical equipment. Patient declined SNF, IPR, and DME. Mrs. Yeung stated that she would like HHS with [facility] and would also like PT with them. [facility] Leslie stated that SOC will be 02 December 2020. PAZ signed and placed in chart. Clinical documents faxed to [facility]. Mrs. Yeung stated that she will be administering the bolus for meals and has some experience with administering feeding boluses but would like some refresher training before DC. CM notified staff nurse that education on bolus feedings is desired by family. Mrs. Yeung stated that the patient has a cane, walker, shower chair, Hillrom vest for breaking up mucus, and a nebulizer. No other needs were voiced and at this time Mrs. Yeung and patient are satisfied with DC plan. Transportation provider at discharge will be with the patient's , Destiny. DC IMM delivered, explained, signed by the patient, and placed in chart. Signed form also left with the patient. CM will continue to follow and will assist as needed with dc plans/needs. DCP REVIEW SUMMARY ANTICIPATED D/C DATE: 11/29/2020 EXPECTED LOS : 8 CASE STATUS: DCP Initiated INITIAL REVIEW: 11/21/2020 INITIAL REVIEWER: Prince Zimmerman FINAL DISCHARGE DISPOSITION: : FINAL REVIEWER: FINAL REVIEW DATE: DCP Focus Questions & Answers DCP Evaluation QUESTION: ANSWER Family / Caregiver's ability to cope with chronic illness: : a. Adequate (ability to meet patient's medical needs, ensures patient attends medical appts.) Patient gives permission to discuss discharge plans with: (name, relationship and number) : Destiny, Patient's ability to cope with chronic illness : d. No chronic illness Patient's current cognitive status: : *Oriented to person, place, situation, time and present Patient and/or caregiver agree upon recommended discharge plan? : Yes Physical Status: : Compromised nutritional status Physical Status: : Mobility impaired Physical Status: : Speech impaired Family / Caregiver's ability to cope with chronic illness: : a. Adequate (ability to meet patient's medical needs, ensures patient attends medical appts.) Functional screen assessment: : Unable to manage ADLs without immediate ongoing assistance Does the patient have the ability to pay for or attain post discharge needs / services? : Yes Partial Dependence, assistance required for: : Ambulation / Mobility Partial Dependence, assistance required for: : Bathing Partial Dependence, assistance required for: : Dressing Partial Dependence, assistance required for: : Eating Living Arrangements: : Home with Spouse/Significant Other Is there a likelihood that the patient will require additional services to return to the preadmission environment? : Yes Equipment needed for post hospitalization: : None Baseline cognitive status: : *Oriented to person, place, situation, time and present Patient with capacity for self-care or can be cared for in same environment as prior to hospitalization? : Yes Other Equipment comments: : PEG TUBE PLACED DURING THIS HOSPITALIZATION Physical environment modification needed / anticipated for discharge: : No Medication Management: : Patient states can afford medications Medication Management: : Patient states can read and understand medication labels Pharmacy name(s): : [facility] Does Patient have transportation to get home and to follow-up medical appointments when discharged from the hospital? : Yes Would patient like to participate in any Care Coordination programs (if applicable): : Not applicable Does the patient have electricity at home? : Yes Does the patient have running water in their house? : Yes Equipment in use: : Cane - Single Leg Equipment in use: : Nebulizer Equipment in use: : Shower Chair Equipment in use: : Walker - Rolling Other Equipment comments: : MESHA MERAZ Mental health screen: : No mental health history DCP Re-evaluation QUESTION: ANSWER Would patient like to participate in any Care Coordination programs (if applicable): : Not applicable PATIENT: MELVIN YEUNG V ENCOUNTER: [id number] MEDICAL RECORD#: [id number] ADMISSION DATE: 11/21/2020 DISCHARGE DATE: ATTENDING MD: NAVNEET BAINS : AGE: 79 MARITAL STATUS: M DC PLAN ID: [id number] FACILITY: [facility] PRINTED ON: 11/29/20 12:47 CT All edits/amendments must be made on the electronic document DICTATION DATE: 11/29/201246 MACHINE CHOCOLATE MOLDER: ANTHONY 11/29/20 124 RPT#: [id number] DC DATE: STATUS: ADM IN [facility] [address] [place] [address] END OF REPORT
--- NOTE | 2020-11-29 13:32 | NUR ---
PATIENT DISCHARGE PAPERWORK REVIEWED WITH . STATES SHE IS CONCERNED THAT 1.5 OSMOLITE WITH NOT PROVIDE ENOUGH DAILY CALORIES, REQUESTS THAT DR OR BOARD CERTIFIED FAMILY PHYSICIAN IS CALLED.
--- NOTE | 2020-11-29 14:10 | NUR ---
PATIENT NOTIFIED THAT PER MD AND DIET/ASSISTANT PROFESSOR OF DIETETICS ORDER, PATIENT SHOULD CONTINUE WITH OSMOLITE 1.5 AT HOME. PATIENT ALSO STATES THAT HER CURRENT PHARMACY LISTED IS CLOSED TODAY AND TOMORROW. ALIYAH, D/C COORDINATOR, STATES SHE CAN CALL THE RX IN TO [facility] FOR THE PATIENT'S CONVENIENCE AND SO THAT HE DOES NOT HAVE TO MISS A DOSE.
--- NOTE | 2020-11-29 14:45 | NUR ---
PT'S PHARMACY HAS CLOSED FOR WEEKEND. RX'S CALLED TO [facility] REQUESTED.
--- NOTE | 2020-11-29 16:05 | NUR ---
IV OUT, DC`D VIA WHEELCHAIR AND HOSPITAL STAFF HOME WITH . NO CONCERNS NOTED.
--- NOTE | 2020-11-30 15:39 | MORECARE ---
CASE MANAGEMENT DISCHARGE SUMMARY PATIENT: MEVLIN YEUNG UNIT: [id number] ADM DATE: 11/21/20 AGE: 79 : 40 SEX: M ROOM/BED: D.2140 AUTHOR: LACY CHIU PHYSICIAN: REFERRING PHYSICIAN: NAVNEET MEHTA MD DATE OF SERVICE: 11/30/20 Case Management Discharge Planning Summary COMMENTS ENTERED DATE: 11/29/20 12:27 CT COMMENT TYPE: Discharge Planning REVIEWER: Prince Zimmerman HOME WITH [facility]/PT and BOLUS FEEDINGS. CM met with patient to complete DC plan and to evaluate needs. Patient is dependent for ADL's and Mobility. Patient Lives with his , Destiny Yeung, , a retired Speech Therapist. Patient and are present. Mrs. Yeung stated that their home is safe and has electricity and running water. Mrs. Yeung stated that the home has 3 steps to enter and they are able to manage the steps without difficulty. Mrs. Yeung stated that they have no problems paying for medications and they fill their medications at [facility] [address] Mrs. Yeung stated that the patient's a primary care physician, is Dr. Garcia but his PA is filling in at this time. At discharge, the patient plans to return home and feels this is a safe discharge. CM discussed availability of home health, rehab services, and medical equipment. Patient declined SNF, IPR, and DME. Mrs. Yeung stated that she would like HHS with [facility] and would also like PT with them. [facility]. Leslie stated that SOC will be 02 December 2020. PAZ signed and placed in chart. Clinical documents faxed to [facility]. Mrs. Yeung stated that she will be administering the bolus for meals and has some experience with administering feeding boluses but would like some refresher training before DC. CM notified staff nurse that education on bolus feedings is desired by family. Mrs. Yeung stated that the patient has a cane, walker, shower chair, Hillrom vest for breaking up mucus, and a nebulizer. No other needs were voiced and at this time Mrs. Yeung and patient are satisfied with DC plan. Transportation provider at discharge will be with the patient's , Destiny. DC IMM delivered, explained, signed by the patient, and placed in chart. Signed form also left with the patient. CM will continue to follow and will assist as needed with dc plans/needs. DCP REVIEW SUMMARY ANTICIPATED D/C DATE: 11/29/2020 EXPECTED LOS : 8 CASE STATUS: DCP Initiated INITIAL REVIEW: 11/21/2020 INITIAL REVIEWER: Prince Zimmerman FINAL DISCHARGE DISPOSITION: : FINAL REVIEWER: FINAL REVIEW DATE: DCP Focus Questions & Answers DCP Evaluation QUESTION: ANSWER Patient gives permission to discuss discharge plans with: (name, relationship and number) : Destiny yates, Patient's ability to cope with chronic illness : d. No chronic illness Patient's current cognitive status: : *Oriented to person, place, situation, time and present Family / Caregiver's ability to cope with chronic illness: : a. Adequate (ability to meet patient's medical needs, ensures patient attends medical appts.) Patient and/or caregiver agree upon recommended discharge plan? : Yes Physical Status: : Compromised nutritional status Physical Status: : Mobility impaired Physical Status: : Speech impaired Family / Caregiver's ability to cope with chronic illness: : a. Adequate (ability to meet patient's medical needs, ensures patient attends medical appts.) Functional screen assessment: : Unable to manage ADLs without immediate ongoing assistance Does the patient have the ability to pay for or attain post discharge needs / services? : Yes Partial Dependence, assistance required for: : Ambulation / Mobility Partial Dependence, assistance required for: : Bathing Partial Dependence, assistance required for: : Dressing Partial Dependence, assistance required for: : Eating Living Arrangements: : Home with Spouse/Significant Other Is there a likelihood that the patient will require additional services to return to the preadmission environment? : Yes Equipment needed for post hospitalization: : None Baseline cognitive status: : *Oriented to person, place, situation, time and present Patient with capacity for self-care or can be cared for in same environment as prior to hospitalization? : Yes Other Equipment comments: : PEG TUBE PLACED DURING THIS HOSPITALIZATION Physical environment modification needed / anticipated for discharge: : No Medication Management: : Patient states can afford medications Medication Management: : Patient states can read and understand medication labels Pharmacy name(s): : [facility] Does Patient have transportation to get home and to follow-up medical appointments when discharged from the hospital? : Yes Would patient like to participate in any Care Coordination programs (if applicable): : Not applicable Does the patient have electricity at home? : Yes Does the patient have running water in their house? : Yes Equipment in use: : Cane - Single Leg Equipment in use: : Nebulizer Equipment in use: : Shower Chair Equipment in use: : Walker - Rolling Other Equipment comments: : MESHA MERAZ Mental health screen: : No mental health history DCP Re-evaluation QUESTION: ANSWER Would patient like to participate in any Care Coordination programs (if applicable): : Not applicable PATIENT: MELVIN YEUNG V ENCOUNTER: [id number] MEDICAL RECORD#: [id number] ADMISSION DATE: 11/21/2020 DISCHARGE DATE: 11/29/2020 ATTENDING MD: NAVNEET BAINS : AGE: 79 MARITAL STATUS: M DC PLAN ID: [id number] FACILITY: [facility] PRINTED ON: 11/30/20 15:39 CT All edits/amendments must be made on the electronic document DICTATION DATE: 11/30/201538 PLANT MAINTENANCE ENGINEER: ANTHONY 11/30/20 153 RPT#: [id number] DC DATE:11/29/20 STATUS: DIS IN [facility] [address] [place] [address] END OF REPORT
--- NOTE | 2020-12-01 12:40 | OP ---
PATIENT NAME: MELVIN SYED MEDICAL RECORD: [id number] :40 LOCATION:D.M2 D.2140 ADMISSION DATE:11/21/20 SURGEON: MARLA ADDISON MD DATE OF OPERATION: 11/27/2020 PREOPERATIVE DIAGNOSES: 1. Dysphagia. 2. History of throat cancer. 3. History of tongue cancer. 4. Aspiration pneumonia. 5. Chronic obstructive pulmonary disease. 6. Malnutrition. POSTOPERATIVE DIAGNOSES: 1. Dysphagia. 2. History of throat cancer. 3. History of tongue cancer. 4. Aspiration pneumonia. 5. Chronic obstructive pulmonary disease. 6. Malnutrition. PROCEDURE: A 20-Malaysian PEG tube placement. SURGEON: Marla Addison MD REPORT OF PROCEDURE: An Olympus endoscope was advanced through the mouth and esophagus. There was some difficulty getting through the patient's throat as it was quite firm and inflamed. We eventually were able to pass through and get past the esophagus and into the stomach. The stomach was insufflated and we were able to find an area where the patient had previously had a PEG tube. The area was prepped and draped and a total of 5 cc of 1% lidocaine was infused into the subcutaneous tissues. A transverse incision was made through the old PEG tube site and an Angiocath needle was brought through this opening into the gastric lumen. A wire was advanced through the Angiocath and this was grasped with an Endo snare. This was all pulled through the mouth and esophagus and the PEG tube was affixed to the wire. The wire and PEG tube were pulled through the mouth and esophagus and out through the abdominal wall until it rested in good position at 3 cm at the skin. I attempted to replace the scope back into the patient's stomach, but I had a lot of difficulty getting back through his throat and kept ending up in the patient's bronchus. At this point, I just discontinued this portion of the procedure. COMPLICATIONS: None. CONDITION: Stable. ANESTHESIA: TIVA. BLOOD LOSS: Minimal. TRANSINT:[id number] Voice Confirmation ID: [id number] DOCUMENT ID: [id number] OPERATIVE REPORT [id number] MELVIN SYED MARLA ADDISON MD at 1240 CC: [id number] DICTATION DATE: 11/27/20930 CASH ACCOUNTING CLERK: 11/27/20 1051 DIS IN 11/29/20 [facility] [address] [facility] [place] [address]
--- NOTE | 2020-12-01 13:31 | MORECARE ---
CASE MANAGEMENT DISCHARGE SUMMARY PATIENT: MELVIN YEUNG UNIT: [id number] ADM DATE: 11/21/20 AGE: 79 : 40 SEX: M ROOM/BED: D.2140 AUTHOR: LACY CHIU PHYSICIAN: REFERRING PHYSICIAN: NAVNEET MEHTA MD DATE OF SERVICE: 12/01/20 Case Management Discharge Planning Summary COMMENTS ENTERED DATE: 11/29/20 12:27 CT COMMENT TYPE: Discharge Planning REVIEWER: Prince Zimmemran [facility]/PT and BOLUS FEEDINGS. CM met with patient to complete DC plan and to evaluate needs. Patient is dependent for ADL's and Mobility. Patient Lives with his , Destiny Yeung, , a retired Speech Therapist. Patient and are present. Mrs. Yeung stated that their home is safe and has electricity and running water. Mrs. Yeung stated that the home has 3 steps to enter and they are able to manage the steps without difficulty. Mrs. Yeung stated that they have no problems paying for medications and they fill their medications at [facility] Mrs. Yeung stated that the patient's a primary care physician, is Dr. Garcia but his PA is filling in at this time. At discharge, the patient plans to return home and feels this is a safe discharge. CM discussed availability of home health, rehab services, and medical equipment. Patient declined SNF, IPR, and DME. Mrs. Yeung stated that she would like HHS with [facility] and would also like PT with them. [facility] Leslie stated that SOC will be 02 December 2020. PAZ signed and placed in chart. Clinical documents faxed to [facility]. Mrs. Yeung stated that she will be administering the bolus for meals and has some experience with administering feeding boluses but would like some refresher training before DC. CM notified staff nurse that education on bolus feedings is desired by family. Mrs. Yeung stated that the patient has a cane, walker, shower chair, Hillrom vest for breaking up mucus, and a nebulizer. No other needs were voiced and at this time Mrs. Yeung and patient are satisfied with DC plan. Transportation provider at discharge will be with the patient's , Destiny. DC IMM delivered, explained, signed by the patient, and placed in chart. Signed form also left with the patient. CM will continue to follow and will assist as needed with dc plans/needs. DCP REVIEW SUMMARY ANTICIPATED D/C DATE: 11/29/2020 EXPECTED LOS : 8 CASE STATUS: DCP Initiated INITIAL REVIEW: 11/21/2020 INITIAL REVIEWER: Prince Zimmerman FINAL DISCHARGE DISPOSITION: : FINAL REVIEWER: FINAL REVIEW DATE: DCP Focus Questions & Answers DCP Evaluation QUESTION: ANSWER Patient and/or caregiver agree upon recommended discharge plan? : Yes Family / Caregiver's ability to cope with chronic illness: : a. Adequate (ability to meet patient's medical needs, ensures patient attends medical appts.) Patient's current cognitive status: : *Oriented to person, place, situation, time and present Patient's ability to cope with chronic illness : d. No chronic illness Patient gives permission to discuss discharge plans with: (name, relationship and number) : Destiny, Does the patient have the ability to pay for or attain post discharge needs / services? : Yes Functional screen assessment: : Unable to manage ADLs without immediate ongoing assistance Family / Caregiver's ability to cope with chronic illness: : a. Adequate (ability to meet patient's medical needs, ensures patient attends medical appts.) Physical Status: : Speech impaired Physical Status: : Mobility impaired Physical Status: : Compromised nutritional status Equipment needed for post hospitalization: : None Is there a likelihood that the patient will require additional services to return to the preadmission environment? : Yes Living Arrangements: : Home with Spouse/Significant Other Partial Dependence, assistance required for: : Eating Partial Dependence, assistance required for: : Dressing Partial Dependence, assistance required for: : Bathing Partial Dependence, assistance required for: : Ambulation / Mobility Other Equipment comments: : PEG TUBE PLACED DURING THIS HOSPITALIZATION Patient with capacity for self-care or can be cared for in same environment as prior to hospitalization? : Yes Baseline cognitive status: : *Oriented to person, place, situation, time and present Physical environment modification needed / anticipated for discharge: : No Medication Management: : Patient states can read and understand medication labels Medication Management: : Patient states can afford medications Pharmacy name(s): : [facility] Does Patient have transportation to get home and to follow-up medical appointments when discharged from the hospital? : Yes Would patient like to participate in any Care Coordination programs (if applicable): : Not applicable Does the patient have electricity at home? : Yes Does the patient have running water in their house? : Yes Equipment in use: : Walker - Rolling Equipment in use: : Shower Chair Equipment in use: : Nebulizer Equipment in use: : Cane - Single Leg Other Equipment comments: : MESHA MERAZ Mental health screen: : No mental health history DCP Re-evaluation QUESTION: ANSWER Would patient like to participate in any Care Coordination programs (if applicable): : Not applicable PATIENT: MELVIN YEUNG V ENCOUNTER: [id number] MEDICAL RECORD#: [id number] ADMISSION DATE: 11/21/2020 DISCHARGE DATE: 11/29/2020 ATTENDING MD: NAVNEET BAINS : AGE: 79 MARITAL STATUS: M DC PLAN ID: [id number] FACILITY: [facility] PRINTED ON: 12/01/20 13:31 CT All edits/amendments must be made on the electronic document DICTATION DATE: 12/01/20 133 COMBINATION TECHNICIAN: ANTHONY 12/01/20 133 RPT#: [id number] DC DATE:11/29/20 STATUS: DIS IN [facility] [address] [place] [address] END OF REPORT
== END 2020-11-29 16:16 | disposition home health service (06) | DRG 177 ==
LOC: D.ER 09:35 → D.M2 13:45
PROVIDERS: Emergency Medicine; Family Medicine; Surgery; ADMIT Family Medicine; ATTEND Family Medicine
PROC: 0DH63UZ Insertion of Feeding Device into Stomach, Percutaneous Approach (ICD-10-PCS; principal; 2020-11-27 09:00)
DX: J69.0 Pneumonitis due to inhalation of food and vomit (principal); E43 Unspecified severe protein-calorie malnutrition; J44.1 Chronic obstructive pulmonary disease with (acute) exacerbation; Z68.1 Body mass index [BMI] 19.9 or less, adult; J44.0 Chronic obstructive pulmonary disease with (acute) lower respiratory infection; E03.9 Hypothyroidism, unspecified; G20 Parkinson's disease; R91.1 Solitary pulmonary nodule; M19.90 Unspecified osteoarthritis, unspecified site; Z85.810 Personal history of malignant neoplasm of tongue; Z85.51 Personal history of malignant neoplasm of bladder; I49.3 Ventricular premature depolarization; D64.9 Anemia, unspecified; Z87.891 Personal history of nicotine dependence

== ENCOUNTER 2020-12-31 09:34 | Day surgery (SDC) | payer OTHER ==
[~2020-12-31] VITALS: Ht 185.4 cm; Wt 63.6 kg
[~2020-12-31 09:34] MED LIST changes: +FLORAJEN3 CAPS460 MG PO; +LEVOFLOXACIN500 MG PO; +ROBITUSSIN DM 110 ML PEG
[2020-12-31 10:09] LABS: BASOPHILS 0.7 % (0-2); EOSINOPHILS 7.2 % (0-7); HEMATOCRIT 34.2 % (42.0-54.0); HEMOGLOBIN 11.3 g/dL (13.5-17.5); LYMPHOCYTES 20.4 % (15-50); MCH 30.8 pg (26.0-34.0); MCHC 33.1 g/dL (31.0-37.0); MCV 92.9 fL (80.0-100.0); MEAN PLATELET VOLUME 7.6 fL (7.4-10.4); MONOCYTES 10.2 % (2-11); NEUTROPHILS 61.5 % (40-80); PLATELET COUNT 277 10x3/uL (130-400); RBC 3.68 10x6/uL (4.20-6.10); RDW 14.7 % (11.5-14.5); WBC 3.7 10x3/uL (4.8-10.8)
[2020-12-31 10:27] LABS: APTT 28.8 SECONDS (22.8-39.4); INR 1.1 (0.85-1.17); PROTIME 13.1 SECONDS (11.6-15.0)
[2020-12-31 11:43] VITALS: BP 117/87; Ht 185.4 cm; Wt 63.6 kg
--- NOTE | 2020-12-31 15:20 | NUR ---
IV D/C'D WITH CANNULA INTACT, PRESSURE HELD AND DRSG PLACED. DISCHARGE INSTRUCTIONS GIVEN AND PT VERBALIZED AN UNDERSTANDING. NO COGH PRESENT. PRESENTS AT BASELINE
[2021-01-02 13:59] LABS: ACID FAST SMEAR Negative (()); AFB SPECIMEN PROCESSING Concentration (()); AFB SPECIMEN PROCESSING Not Indicated (())
== END 2020-12-31 15:27 | disposition home or self-care (01) ==
LOC: D.OPS 09:34
PROVIDERS: ATTEND Internal Medicine Pulmonary Disease
DX: J47.9 Bronchiectasis, uncomplicated (principal); J90 Pleural effusion, not elsewhere classified; R06.09 Other forms of dyspnea; R53.83 Other fatigue; I10 Essential (primary) hypertension; R91.1 Solitary pulmonary nodule; Z87.01 Personal history of pneumonia (recurrent)

== ENCOUNTER 2021-01-03 01:51 | Inpatient (IN) | payer OTHER ==
[~2021-01-03] VITALS: Ht 185.4 cm; Wt 83.0 kg
[2021-01-03] VITALS (7 sets, daily range): BP systolic 107–179; BP diastolic 22–72; Ht 185.4 cm; Wt 83.0 kg
[2021-01-03 02:46] LABS: BASOPHILS 0.4 % (0-2); HEMATOCRIT 31.1 % (42.0-54.0); HEMOGLOBIN 10.6 g/dL (13.5-17.5); LYMPHOCYTES 4.9 % (15-50); MCH 31.7 pg (26.0-34.0); MCHC 34.1 g/dL (31.0-37.0); MCV 93.1 fL (80.0-100.0); MEAN PLATELET VOLUME 8.3 fL (7.4-10.4); MONOCYTES 7.5 % (2-11); NEUTROPHILS 86.2 % (40-80); PLATELET COUNT 255 10x3/uL (130-400); RBC 3.35 10x6/uL (4.20-6.10); RDW 14.6 % (11.5-14.5); WBC 9.9 10x3/uL (4.8-10.8)
[2021-01-03 02:55] LABS: CALC OSMOLALITY 275 mosm/kg (275-300); CALCIUM 8.6 mg/dL (8.5-10.1); CARBON DIOXIDE 26.9 mmol/L (21.0-32.0); CHLORIDE - SERUM 99 mmol/L (98-107); GLUCOSE 133 mg/dL (74-106); POTASSIUM - SERUM 4.2 mmol/L (3.5-5.1); SODIUM 134 mmol/L (136-145); UREA NITROGEN 30 mg/dL (7-18); eGFR NON AFRICAN AMERICAN 76 mL/min (90-120)
[2021-01-03 03:01] LABS: ALBUMIN 3.3 g/dL (3.4-5.0); ALKALINE PHOSPHATASE 80 U/L (30-120); ALT (SGPT) 47 U/L (10-68); BILIRUBIN - TOTAL 0.68 mg/dL (0.2-1.3); PROTEIN - SERUM 8.5 g/dL (6.4-8.2)
[2021-01-03 04:47] LABS: % SATURATION 14 % (15-55); IRON 34 ug/dl (35-150); TOTAL IRON BIND CAPACITY 241 ug/dl (260-445); UNSAT IRON BIND CAPACITY 207 ug/dl (150-375)
[2021-01-03 05:04] LABS: APTT 24.6 SECONDS (22.8-39.4); INR 1.09 (0.85-1.17); PROTIME 13.1 SECONDS (11.6-15.0)
[2021-01-03 05:22] LABS: CKMB 1.3 U/L (0.0-3.6); CREATINE KINASE 126 UL (21-232); MAGNESIUM - SERUM 1.2 mg/dL (1.8-2.4); THYROID STIMULATING HORMONE 1.54 uIU/mL (0.36-3.74); TROPONIN-I < 0.017 ng/mL (0.000-0.060)
[2021-01-03] MEDS ORDERED: IPRAT-ALBUT 0.5-3 ML UPD (06:43)
--- NOTE | 2021-01-03 06:46 | NUR ---
ASSESSED WITH TATY STEPHENS AT THE TIME OF ARRIVAL FROM THE ER. 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 HE HAS A SLING IN PLACEA TO HIS LEFT SHOULDER. THE IV IS SALINE LOCKED. MADE COMFORTABLE AND LET REST AT THIS TIME.
--- NOTE | 2021-01-03 07:56 | NUR ---
AWAKE AND ALERT. ORIENTED X3. NO C/O PAIN AT THIS TIME. LUNGS ARE CLEAR BILATERALLY, NO COUGH NOTED. SKIN IS INTACT WITHOUT REDNESS. SLING IN PLACE TO RIGHT ARM, MOVES DIGITS FREELY. SEVERAL AREAS OF SCRAPES AND BRUISES NOTED IN VARIOUS STAGES OF HEALING. WILL MONITOR. IV TO LEFT FOREARM IS PATENT WITHOUT REDNESS AT INSERTION SITE. NO NEEDS NOTED. SCD'S IN PLACE.
--- NOTE | 2021-01-03 09:45 | NUR ---
HERE. VERY UPSET NO TF ORDERED. GIVEN 8 OUNCES WATER VIA PEG WITHOUT DIFFICULTY. HOB UP 45DEGREES. WILL NONTIFY .
--- NOTE | 2021-01-03 10:30 | NUR ---
NEW ORDERS RECEIVED FOR TF.
--- NOTE | 2021-01-03 11:00 | NUR ---
GIVEN ONE CAN OSMOLYTE 1.5 VIA PEG TO GRAVITY. NO DIFFICULTY WITH FEEDING. HOB UP 45 DEGREES.
--- NOTE | 2021-01-03 14:15 | NUR ---
STOOD UP ON SCALE FOR ACCURATE WEIGHT. BED ZEROED WHILE PATIENT STANDING. APPEARED TO FAINT WHILE UP. WILL MONITOR. WEIGHT WAS 143 ON STANDING SCALE AND 144 ON BED SCALE. GIVEN 1 CAN OSMOLYTE 1.5 WITH 240 CC WATER. REPOSITIONED IN BED FOR COMFORT
--- NOTE | 2021-01-03 14:45 | NUR ---
PT HERE TO SEE PATIENT. WAS ABLE TO STAND AT BEDSIDE WITH MOD ASSIST OF ONE.
--- NOTE | 2021-01-03 16:30 | NUR ---
GIVEN ONE CAN OSMOLYTE WITH 240 CC WATER PER PEG WITH GRAVITY. C/.O PAIN TO RIGHT SHOULDER LEVEL 8. GIVEN 650 M,G TYLENOL DC FOR SAME WILL MONITOR
--- NOTE | 2021-01-03 17:00 | NUR ---
LEFT PORT ACCESSED WITH 3/4 INCH NEEDLE WITHOUT DIFFICULTY USING STERILE TECHNIQUE. NO C/O AT THIS TIME . DENIES NEEDS.
[2021-01-04] VITALS: BP 137/52
[2021-01-04 04:00] VITALS: BP 127/44
[2021-01-04 05:35] LABS: BASOPHILS 0.5 % (0-2); EOSINOPHILS 0.4 % (0-7); HEMATOCRIT 30.4 % (42.0-54.0); HEMOGLOBIN 10.3 g/dL (13.5-17.5); MCH 31.4 pg (26.0-34.0); MCHC 33.8 g/dL (31.0-37.0); MCV 92.7 fL (80.0-100.0); MEAN PLATELET VOLUME 8.4 fL (7.4-10.4); MONOCYTES 9.2 % (2-11); NEUTROPHILS 79.9 % (40-80); PLATELET COUNT 236 10x3/uL (130-400); RBC 3.28 10x6/uL (4.20-6.10); RDW 14.5 % (11.5-14.5)
[2021-01-04 06:05] LABS: ALBUMIN 2.8 g/dL (3.4-5.0); ALKALINE PHOSPHATASE 88 U/L (30-120); BILIRUBIN - TOTAL 0.85 mg/dL (0.2-1.3); CALC OSMOLALITY 272 mosm/kg (275-300); CALCIUM 8.6 mg/dL (8.5-10.1); CARBON DIOXIDE 26.6 mmol/L (21.0-32.0); CHLORIDE - SERUM 100 mmol/L (98-107); CREATININE - SERUM 0.9 mg/dL (0.6-1.3); GLUCOSE 110 mg/dL (74-106); POTASSIUM - SERUM 4.3 mmol/L (3.5-5.1); PROTEIN - SERUM 7.6 g/dL (6.4-8.2); SODIUM 133 mmol/L (136-145); UREA NITROGEN 28 mg/dL (7-18); eGFR NON AFRICAN AMERICAN 86 mL/min (90-120)
[2021-01-04 06:21] LABS: ALT (SGPT) 32 U/L (10-68)
--- NOTE | 2021-01-04 09:00 | NUR ---
LUNGS HAVE CRACKLES AND WHEEZES THROUGHOUT THAT DON'T CLEAR WITH COUGH OR IS. WILL GET CXR. AT BEDSIDE .
[2021-01-04 09:07] VITALS: BP 156/68
--- NOTE | 2021-01-04 10:05 | NUR ---
REQUESTED AND GIVEN 500MG TYLENOL VIA PEG FOR C/O CORBIN. LEVEL 5. ALSO GIVEN ONE CAN OSMOLYTE 1.5 VIA PEG. HOB UP 45 DEGREES.
--- NOTE | 2021-01-04 11:07 | NUR ---
GIVEN YONKERS TO HELP CLEAR SPUTUM. INSTRUCTED IN USE. ALL QUESTIONS ANSWERED.
[2021-01-04 12:53] VITALS: BP 143/62
[2021-01-04 16:57] VITALS: BP 125/55
--- NOTE | 2021-01-04 19:18 | NUR ---
GIVEN 240 CC OSMOLYTE VIA PEG. HOB UP 45 DEGREES. NO CHANGES NOTED. DENIES NEEDS.
[2021-01-04 20:00] VITALS: BP 118/48
[2021-01-05] VITALS: BP 118/50
[2021-01-05 04:00] VITALS: BP 141/53
[2021-01-05 04:20] LABS: BILIRUBIN NEGATIVE (NEGATIVE); KETONE NEGATIVE (NEGATIVE); NITRITE NEGATIVE (NEGATIVE); UROBILINOGEN NORMAL mg/dL (< 2)
[2021-01-05 06:26] LABS: BASOPHILS 0.4 % (0-2); EOSINOPHILS 0.8 % (0-7); HEMATOCRIT 27.3 % (42.0-54.0); HEMOGLOBIN 9.6 g/dL (13.5-17.5); LYMPHOCYTES 13.5 % (15-50); MCH 32.5 pg (26.0-34.0); MCHC 35.1 g/dL (31.0-37.0); MCV 92.4 fL (80.0-100.0); MEAN PLATELET VOLUME 8.9 fL (7.4-10.4); MONOCYTES 13.3 % (2-11); PLATELET COUNT 219 10x3/uL (130-400); RBC 2.96 10x6/uL (4.20-6.10); RDW 14.3 % (11.5-14.5); WBC 5.4 10x3/uL (4.8-10.8)
[2021-01-05 06:30] LABS: ALBUMIN 2.6 g/dL (3.4-5.0); ALKALINE PHOSPHATASE 78 U/L (30-120); ALT (SGPT) 26 U/L (10-68); BILIRUBIN - TOTAL 0.79 mg/dL (0.2-1.3); CALC OSMOLALITY 270 mosm/kg (275-300); CALCIUM 8.4 mg/dL (8.5-10.1); CARBON DIOXIDE 28.8 mmol/L (21.0-32.0); CHLORIDE - SERUM 98 mmol/L (98-107); GLUCOSE 94 mg/dL (74-106); POTASSIUM - SERUM 4.1 mmol/L (3.5-5.1); PROTEIN - SERUM 7.4 g/dL (6.4-8.2); SODIUM 133 mmol/L (136-145); UREA NITROGEN 27 mg/dL (7-18); eGFR NON AFRICAN AMERICAN 76 mL/min (90-120)
--- NOTE | 2021-01-05 08:03 | NUR ---
ALERT AND ORIENTED TO SELF AND PLACE. ASSESSMENT COMPLETE. DENIES NEEDS. BED LOW. CALL LAYNE AND PERSONAL ITEMS IN REACH. WILL CONTINUE TO MONITOR.
--- NOTE | 2021-01-05 08:30 | NUR ---
1 CARTON OSMOLITE 1.5 GIVEN. FLUSHED WITH 60CC BEFORE AND AFTER. MEDS GIVEN THROUGH PEG.
[2021-01-05 10:49] VITALS: BP 141/60
--- NOTE | 2021-01-05 11:30 | NUR ---
1 CARTON OSMOLITE 1.5 GIVEN THROUGH PEG. FLUSHED WITH 60CC BEFORE AND AFTER FEED.
--- NOTE | 2021-01-05 11:30 | NUR ---
ADDITION TO PREVIOUS NOTE. PATIENT WITH WEAK PRODUCTIVE COUGH. USING SUCTION ELYSIAKER. SOUNDS CONGESTED. CRACKLES TO BUL.
[2021-01-05 12:28] VITALS: BP 94/42
--- NOTE | 2021-01-05 13:35 | NUR ---
PATIENT NO LONGER SOUNDS CONGESTED. NO CRACKLES.
--- NOTE | 2021-01-05 14:04 | NUR ---
RESTING IN BED. DENIES NEEDS. WILL CONTINUE TO MONITOR.
--- NOTE | 2021-01-05 14:46 | NUR ---
Nutrition follow-up: Pt strict NPO per speech pathologist TF regimen: 6 cans of Osmolite 1.5 cans per day with 60 ml H2O flush before/after each can via PEG tube Labs reviewed; Na low, may need to adjust flush Wt: 183#. Admit wt is questioned; please get a current wt to chart Pt tolerating TF at this time RDN follow-up: 01/08/21
--- NOTE | 2021-01-05 15:00 | NUR ---
1 CARTON OSMOLITE 1.5 GIVEN VIA PEG. DENIES NEEDS.
--- NOTE | 2021-01-05 17:01 | NUR ---
OT NOTE: PT COMPLETED SUPINET TO SIT WITH MAX A . PT COMPLETED EOB SITTING WITH MAX A. PT REQUIRED MOD A FOR SIMPLE UB HYGIENE TASKS. [phone] CRISTOPHER BOUDREAUX COTA
--- NOTE | 2021-01-05 18:03 | NUR ---
1 CARTON OSMOLITE 1.5 GIVEN. 60 CC FLUSH BEFORE AND AFTER.
[2021-01-05 18:16] VITALS: BP 101/40
[2021-01-05 20:00] VITALS: BP 102/43
--- NOTE | 2021-01-06 02:53 | NUR ---
RESPONDED TO BED ALARM. PATIENT WAS ON HIS KNEES NEXT TO THE BED. ASSISTED BACK INTO BED. NO NEW INJURIES NOTED. PATIENT DENIES PAIN. PATIENT STATES HE WAS TRYING TO GO TO THE BATHROOM. BED NOTED TO BE WET. PAITENT RE-EDUCATED ON FALL PRECAUTIONS. SIDE RAILS UP. EKATERINA MAT UNDER PATIENT AND FUNCTIONING. DOOR OPEN. MD/TECHNICAL SUPPORT ASSOCIATE NOTIFIED. MESSAGE LEFT FOR SPOUSE. WILL CONTINUE TO MONITOR.
[2021-01-06 04:00] VITALS: BP 147/60
[2021-01-06 05:52] LABS: BASOPHILS 0.9 % (0-2); EOSINOPHILS 2.4 % (0-7); HEMOGLOBIN 9.5 g/dL (13.5-17.5); MCH 31.7 pg (26.0-34.0); MCV 93.1 fL (80.0-100.0); MEAN PLATELET VOLUME 8.3 fL (7.4-10.4); MONOCYTES 12.8 % (2-11); NEUTROPHILS 66.9 % (40-80); PLATELET COUNT 250 10x3/uL (130-400); RBC 3.01 10x6/uL (4.20-6.10); RDW 14.3 % (11.5-14.5); WBC 5.5 10x3/uL (4.8-10.8)
--- NOTE | 2021-01-06 06:12 | NUR ---
SPOKE WITH JEFRY VIA PHONE ABOUT INCIDENT THIS AM. SHE IS REQUESTING PT WORK MORE WITH HIM AND THAT HE GO TO A REHAB FACILITY AT DISCHARGE. PATIENT SLEEPING AT THIS TIME. WILL CONTINUE TO MONITOR.
[2021-01-06 06:27] LABS: ALBUMIN 2.5 g/dL (3.4-5.0); ALKALINE PHOSPHATASE 80 U/L (30-120); ALT (SGPT) 25 U/L (10-68); BILIRUBIN - TOTAL 0.67 mg/dL (0.2-1.3); CALC OSMOLALITY 274 mosm/kg (275-300); CALCIUM 8.1 mg/dL (8.5-10.1); CARBON DIOXIDE 26.4 mmol/L (21.0-32.0); CHLORIDE - SERUM 101 mmol/L (98-107); CREATININE - SERUM 0.9 mg/dL (0.6-1.3); GLUCOSE 93 mg/dL (74-106); POTASSIUM - SERUM 4.2 mmol/L (3.5-5.1); PROTEIN - SERUM 7.3 g/dL (6.4-8.2); SODIUM 135 mmol/L (136-145); UREA NITROGEN 26 mg/dL (7-18); eGFR NON AFRICAN AMERICAN 86 mL/min (90-120)
--- NOTE | 2021-01-06 08:01 | NUR ---
ALERT AND ORIENTED. ASSESSMENT COMPLETE. DENIES NEEDS. BED LOW. CALL LAYNE AND PERSONAL ITEMS IN REACH. WILL CONTINUE TO MONITOR.
--- NOTE | 2021-01-06 08:14 | NUR ---
MEDS AND 1 CARTON OSMOLITE 1.5 GIVEN VIA PEG. FLUSH WITH 60CC BEFORE AND AFTER.
[2021-01-06 08:23] VITALS: BP 137/59
--- NOTE | 2021-01-06 10:20 | MORECARE ---
CASE MANAGEMENT DISCHARGE SUMMARY PATIENT: MELVIN SYED UNIT: [id number] ADM DATE: 01/03/21 AGE: 80 : 40 SEX: M ROOM/BED: D.2223 AUTHOR: ARAM,DOC PHYSICIAN: REFERRING PHYSICIAN: ANT PETER MD DATE OF SERVICE: 01/06/21 Case Management Discharge Planning Summary DCP REVIEW SUMMARY ANTICIPATED D/C DATE: EXPECTED LOS : CASE STATUS: DCP Initiated INITIAL REVIEW: 01/03/2021 INITIAL REVIEWER: Leslie Garcia FINAL DISCHARGE DISPOSITION: : FINAL REVIEWER: FINAL REVIEW DATE: DCP Focus Questions & Answers QUESTION: ANSWER : PROVIDER NETWORKING REVIEW DATE: 01/06/2021 SERVICE TYPE: Jail Facility REVIEWER: Leslie Garcia PATIENT: MELVIN SYED V ENCOUNTER: [id number] MEDICAL RECORD#: [id number] ADMISSION DATE: 01/03/2021 DISCHARGE DATE: ATTENDING MD: ANT HILL : AGE: 80 MARITAL STATUS: M DC PLAN ID: [id number] FACILITY: [facility] PRINTED ON: 01/06/21 10:20 CT All edits/amendments must be made on the electronic document DICTATION DATE: 01/06/21 102 METALIZING MACHINE OPERATOR AUTOMATIC: ANTHONY 01/06/21 1020 RPT#: [id number] DC DATE: STATUS: ADM IN [facility] [address] [place] [address] END OF REPORT
--- NOTE | 2021-01-06 10:34 | MORECARE ---
CASE MANAGEMENT DISCHARGE SUMMARY PATIENT: MELVIN SYED UNIT: [id number] ADM DATE: 01/03/21 AGE: 80 : 40 SEX: M ROOM/BED: D.2223 AUTHOR: ARAM,DOC PHYSICIAN: REFERRING PHYSICIAN: ANT PETER MD DATE OF SERVICE: 01/06/21 Case Management Discharge Planning Summary COMMENTS ENTERED DATE: 01/06/21 10:27 CT COMMENT TYPE: Discharge Planning REVIEWER: Leslie Garcia CM met with patient and his at bedside after obtaining verbal consent. CM discussed availability / needs of home health, REHAB and medical equipment. states he will need rehab to get stronger before it is safe for him to go home. They would like [facility] nursing and rehab but they currently do not have any available beds. I have faxed a referral to [facility] nursing and rehab this morning. Waiting call back. Cm will follow and assist as needed. DCP REVIEW SUMMARY ANTICIPATED D/C DATE: EXPECTED LOS : CASE STATUS: DCP Initiated INITIAL REVIEW: 01/03/2021 INITIAL REVIEWER: Leslie Garcia FINAL DISCHARGE DISPOSITION: : FINAL REVIEWER: FINAL REVIEW DATE: DCP Focus Questions & Answers DCP Screen QUESTION: ANSWER High Risk Factors: : Modified LACE Score 11 or greater DCP Evaluation QUESTION: ANSWER Patient's ability to cope with chronic illness : a. Adequate (0-3 ED visits in 6 mos., adequate financial resources, attends scheduled appts.) Patient's current cognitive status: : Intermittently confused / memory changes Family / Caregiver's ability to cope with chronic illness: : a. Adequate (ability to meet patient's medical needs, ensures patient attends medical appts.) Physical Status: : Mobility impaired Does the patient have the ability to pay for or attain post discharge needs / services? : Yes Functional screen assessment: : New onset in difficulty in gait, balance, or transfer difficulties Living Arrangements: : Home with Spouse/Significant Other Partial Dependence, assistance required for: : Ambulation / Mobility Is there a likelihood that the patient will require additional services to return to the preadmission environment? : Yes Baseline cognitive status: : Intermittently confused / memory changes Results of this evaluation have been discussed with: : Family Patient with capacity for self-care or can be cared for in same environment as prior to hospitalization? : No Comments: : PATIENT WILL NEED SKILLED REHAB AT TIME OF DC. Pharmacy name(s): : [facility] Does Patient have transportation to get home and to follow-up medical appointments when discharged from the hospital? : Yes Would patient like to participate in any Care Coordination programs (if applicable): : Not applicable Does the patient have electricity at home? : Yes Does the patient have running water in their house? : Yes Equipment in use: : Cane - Quad Other Equipment comments: : VEST, WALKER, SHOWER CHAIR Mental health screen: : No mental health history DCP Re-evaluation QUESTION: ANSWER Would patient like to participate in any Care Coordination programs (if applicable): : Not applicable PROVIDER NETWORKING REVIEW DATE: 01/06/2021 SERVICE TYPE: Assisted Facility REVIEWER: Leslie Garcia PATIENT: MELVIN SYED V ENCOUNTER: [id number] MEDICAL RECORD#: [id number] ADMISSION DATE: 01/03/2021 DISCHARGE DATE: ATTENDING MD: ANT HILL : AGE: 80 MARITAL STATUS: M DC PLAN ID: [id number] FACILITY: [facility] PRINTED ON: 01/06/21 10:33 CT All edits/amendments must be made on the electronic document DICTATION DATE: 01/06/21 103 FOREST FIRE PREVENTION MANAGER: ANTHONY 01/06/21 103 RPT#: [id number] DC DATE: STATUS: ADM IN [facility] [address] [place] [address] END OF REPORT
--- NOTE | 2021-01-06 11:45 | NUR ---
1 CARTON OSMOLITE 1.5 GIVEN TO PATIENT VIA PEG. FLUSHED WITH 60CC BEFORE AND AFTER.
--- NOTE | 2021-01-06 11:56 | NUR ---
SHOWER PROVIDED BY OT. PATIENT O2 SAT 97% AT BEDSIDE AFTER WORKING WITH OT AND SHOWER. AFTER SEVERAL SECONDS SLOWLY DECREASED TO 93%. NEVER DROPPED BELOW 93% ON ROOM AIR. RESTING IN BED, PATIENT O2 SAT 95%. WILL CONTINUE TO MONITOR.
--- NOTE | 2021-01-06 14:58 | MORECARE ---
CASE MANAGEMENT DISCHARGE SUMMARY PATIENT: MELVIN SYED UNIT: [id number] ADM DATE: 01/03/21 AGE: 80 : 40 SEX: M ROOM/BED: D.2223 AUTHOR: ARAM,DOC PHYSICIAN: REFERRING PHYSICIAN: ANT PETER MD DATE OF SERVICE: 01/06/21 Case Management Discharge Planning Summary COMMENTS ENTERED DATE: 01/06/21 14:48 CT COMMENT TYPE: Discharge Planning REVIEWER: Leslie MANCERA HAS NO BED [facility]. CALLED [facility] AND THEY HAVE BEDS. REFERRAL FAXED THERE AFTER SPEAKING TO PATIENT . ENTERED DATE: 01/06/21 10:27 CT COMMENT TYPE: Discharge Planning REVIEWER: Leslie Radha CM met with patient and his at bedside after obtaining verbal consent. CM discussed availability / needs of home health, REHAB and medical equipment. states he will need rehab to get stronger before it is safe for him to go home. They would like [facility] nursing and rehab but they currently do not have any available beds. I have faxed a referral to [facility] re[facility] this morning. Waiting call back. Cm will follow and assist as needed. DCP REVIEW SUMMARY ANTICIPATED D/C DATE: EXPECTED LOS : CASE STATUS: DCP Initiated INITIAL REVIEW: 01/03/2021 INITIAL REVIEWER: Leslie Garcia FINAL DISCHARGE DISPOSITION: : FINAL REVIEWER: FINAL REVIEW DATE: DCP Focus Questions & Answers DCP Screen QUESTION: ANSWER High Risk Factors: : Modified LACE Score 11 or greater DCP Evaluation QUESTION: ANSWER Patient's ability to cope with chronic illness : a. Adequate (0-3 ED visits in 6 mos., adequate financial resources, attends scheduled appts.) Patient's current cognitive status: : Intermittently confused / memory changes Family / Caregiver's ability to cope with chronic illness: : a. Adequate (ability to meet patient's medical needs, ensures patient attends medical appts.) Physical Status: : Mobility impaired Does the patient have the ability to pay for or attain post discharge needs / services? : Yes Functional screen assessment: : New onset in difficulty in gait, balance, or transfer difficulties Living Arrangements: : Home with Spouse/Significant Other Partial Dependence, assistance required for: : Ambulation / Mobility Is there a likelihood that the patient will require additional services to return to the preadmission environment? : Yes Baseline cognitive status: : Intermittently confused / memory changes Results of this evaluation have been discussed with: : Family Patient with capacity for self-care or can be cared for in same environment as prior to hospitalization? : No Comments: : PATIENT WILL NEED SKILLED REHAB AT TIME OF DC. Pharmacy name(s): : [facility] Does Patient have transportation to get home and to follow-up medical appointments when discharged from the hospital? : Yes Would patient like to participate in any Care Coordination programs (if applicable): : Not applicable Does the patient have electricity at home? : Yes Does the patient have running water in their house? : Yes Equipment in use: : Cane - Quad Other Equipment comments: : VEST, WALKER, SHOWER CHAIR Mental health screen: : No mental health history DCP Re-evaluation QUESTION: ANSWER Would patient like to participate in any Care Coordination programs (if applicable): : Not applicable PROVIDER NETWORKING REVIEW DATE: 01/06/2021 SERVICE TYPE: Longterm Facility REVIEWER: Leslie Garcia REVIEW DATE: 01/06/2021 SERVICE TYPE: Longterm Facility REVIEWER: Leslie Garcia PATIENT: MELVIN SYED V ENCOUNTER: [id number] MEDICAL RECORD#: [id number] ADMISSION DATE: 01/03/2021 DISCHARGE DATE: ATTENDING MD: ANT HILL : AGE: 80 MARITAL STATUS: M DC PLAN ID: [id number] FACILITY: PRINTED ON: 01/06/21 14:58 CT All edits/amendments must be made on the electronic document DICTATION DATE: 01/06/211457 ANIMAL SKINNER: ANTHONY 01/06/211457 RPT#: [id number] DC DATE: STATUS: ADM IN [address] [place] [address] END OF REPORT
--- NOTE | 2021-01-06 15:37 | MORECARE ---
CASE MANAGEMENT DISCHARGE SUMMARY PATIENT: MELVIN SYED UNIT: [id number] ADM DATE: 01/03/21 AGE: 80 : 40 SEX: M ROOM/BED: D.2223 AUTHOR: ARAM,DOC PHYSICIAN: REFERRING PHYSICIAN: ANT PETER MD DATE OF SERVICE: 01/06/21 Case Management Discharge Planning Summary COMMENTS ENTERED DATE: 01/06/21 14:48 CT COMMENT TYPE: Discharge Planning REVIEWER: Leslie MANCERA HAS NO BED AVALABILITY. CALLED [facility] AND THEY HAVE BEDS. REFERRAL FAXED THERE AFTER SPEAKING TO PATIENT . ENTERED DATE: 01/06/21 10:27 CT COMMENT TYPE: Discharge Planning REVIEWER: Leslie Radha CM met with patient and his at bedside after obtaining verbal consent. CM discussed availability / needs of home health, REHAB and medical equipment. states he will need rehab to get stronger before it is safe for him to go home. They would like [facility] re[facility] but they currently do not have any available beds. I have faxed a referral to [facility] [place] [facility] this morning. Waiting call back. Cm will follow and assist as needed. DCP REVIEW SUMMARY ANTICIPATED D/C DATE: EXPECTED LOS : CASE STATUS: DCP Initiated INITIAL REVIEW: 01/03/2021 INITIAL REVIEWER: Leslie Garcia FINAL DISCHARGE DISPOSITION: : FINAL REVIEWER: FINAL REVIEW DATE: DCP Focus Questions & Answers DCP Screen QUESTION: ANSWER High Risk Factors: : Modified LACE Score 11 or greater DCP Evaluation QUESTION: ANSWER Patient's ability to cope with chronic illness : a. Adequate (0-3 ED visits in 6 mos., adequate financial resources, attends scheduled appts.) Patient's current cognitive status: : Intermittently confused / memory changes Family / Caregiver's ability to cope with chronic illness: : a. Adequate (ability to meet patient's medical needs, ensures patient attends medical appts.) Physical Status: : Mobility impaired Does the patient have the ability to pay for or attain post discharge needs / services? : Yes Functional screen assessment: : New onset in difficulty in gait, balance, or transfer difficulties Living Arrangements: : Home with Spouse/Significant Other Partial Dependence, assistance required for: : Ambulation / Mobility Is there a likelihood that the patient will require additional services to return to the preadmission environment? : Yes Baseline cognitive status: : Intermittently confused / memory changes Results of this evaluation have been discussed with: : Family Patient with capacity for self-care or can be cared for in same environment as prior to hospitalization? : No Comments: : PATIENT WILL NEED SKILLED REHAB AT TIME OF DC. Pharmacy name(s): : [facility] Does Patient have transportation to get home and to follow-up medical appointments when discharged from the hospital? : Yes Would patient like to participate in any Care Coordination programs (if applicable): : Not applicable Does the patient have electricity at home? : Yes Does the patient have running water in their house? : Yes Equipment in use: : Cane - Quad Other Equipment comments: : VEST, WALKER, SHOWER CHAIR Mental health screen: : No mental health history DCP Re-evaluation QUESTION: ANSWER Would patient like to participate in any Care Coordination programs (if applicable): : Not applicable PROVIDER NETWORKING REVIEW DATE: 01/06/2021 SERVICE TYPE: Residential Facility REVIEWER: Leslie Garcia REVIEW DATE: 01/06/2021 SERVICE TYPE: Residential Facility REVIEWER: Leslie Garcia PATIENT: MELVIN SYED V ENCOUNTER: [id number] MEDICAL RECORD#: [id number] ADMISSION DATE: 01/03/2021 DISCHARGE DATE: ATTENDING MD: ANT HILL : AGE: 80 MARITAL STATUS: M DC PLAN ID: [id number] FACILITY: [facility] PRINTED ON: 01/06/21 15:37 CT All edits/amendments must be made on the electronic document DICTATION DATE: 01/06/211536 WAIVER ANALYST: ANTHONY 01/06/21 153 RPT#: [id number] DC DATE: STATUS: ADM IN [facility] [address] [place] [address] END OF REPORT
--- NOTE | 2021-01-06 15:45 | NUR ---
1 CARTON OSMOLITE 1.5 GIVEN VIA PEG. FLUSHED WITH 60 CC BEFORE AND AFTER.
[2021-01-06 16:00] VITALS: BP 134/48
--- NOTE | 2021-01-06 16:58 | NUR ---
OT NOTE: PT AND REQUESTING THAT PT HAVE A SHOWER TODAY VS BED BATH. HOWEVER, DUE TO WEAKNESS, POOR BALANCE, AND DECREASED MOBILTIY, REQUIRED ASSIST OF OT AND BERNAL FOR SAFETY... PT ABLE TO PERFORM SUPINE TO SIT WITH MOD ASSIST. MAX ASSIST TO CATALINA SOCKS; MAX ASSIST X 2 TO AMB FROM BED TO SHOWER.. CONSTANT CUES PT CONTINUALLY TRYING TO PUT CANE IN R HAND ( HE IS R HAND DOMONANT); TRANSFER TO SHOWER BENCH WITH MAX ASSIST; MOD ASSIST WITH SHOWER; MOD ASSIST TO STAND WITH USE OF GRAB BAR WHILE BERNAL ASSISTED WITH PERINEAL CARE/CLEANING IN SHOWER. MAX X 2 FOR AMB BACK TO BED; MAX ASSIST FOR DOFFING AND DONNING SOCKS; MAX ASSIST WITH DONNING GOWN; MOD ASSIST FOR GROOMING TASKS INCLUDING COMBING HAIR.. INCREASED DIFFICULTY PT IS CONTINUALLY ATTEMPTING TO USE R HAND FOR ADL TASKS.. PLACE R UE BACK IN SLING AND POSITIONED FOR COMFORT.. MAX ASSIST FOR REPOSITIONING IN BED. ROBERT PARMAR, OTR/L [phone]
--- NOTE | 2021-01-06 17:15 | NUR ---
OT NOTE: PT COMPLETED ADL MOBILITY WITH MIN-MOD A. PT COMPLETED SHOWERING WITH MIN A FOR UB AND MOD A FOR LB BATHING. PT FOLLOWED RUE PRECAUTIONS DURING SHOWER TASKS...REQUIRED MOD VERBAL CUES. PT COMPLETED DRESSING TASKS WITH MOD-MAX A. PT REQUIRED TOTAL A WITH SLING. PT COMPLETED EOB SITTING WITH SBA. PT COMPLETED SIT TO SUPINE WITH MIN A. [id number] THANK YOU,GABE JIANG
--- NOTE | 2021-01-06 18:34 | NUR ---
1 CARTON OSMOLITE 1.5 GIVEN. 60CC FLUSH BEFORE AND AFTER.
[2021-01-06 20:00] VITALS: BP 122/42
[2021-01-07 04:00] VITALS: BP 125/45
[2021-01-07 06:22] LABS: BASOPHILS 0.7 % (0-2); EOSINOPHILS 1.6 % (0-7); HEMATOCRIT 26.6 % (42.0-54.0); HEMOGLOBIN 9.2 g/dL (13.5-17.5); LYMPHOCYTES 12.8 % (15-50); MCH 32.3 pg (26.0-34.0); MCHC 34.5 g/dL (31.0-37.0); MCV 93.5 fL (80.0-100.0); MEAN PLATELET VOLUME 7.7 fL (7.4-10.4); MONOCYTES 13.4 % (2-11); NEUTROPHILS 71.5 % (40-80); PLATELET COUNT 276 10x3/uL (130-400); RBC 2.84 10x6/uL (4.20-6.10); RDW 14.4 % (11.5-14.5); WBC 5.7 10x3/uL (4.8-10.8)
[2021-01-07 06:49] LABS: ALBUMIN 2.3 g/dL (3.4-5.0); ALKALINE PHOSPHATASE 81 U/L (30-120); BILIRUBIN - TOTAL 0.62 mg/dL (0.2-1.3); CALC OSMOLALITY 278 mosm/kg (275-300); CALCIUM 7.8 mg/dL (8.5-10.1); CARBON DIOXIDE 24.7 mmol/L (21.0-32.0); CHLORIDE - SERUM 103 mmol/L (98-107); CREATININE - SERUM 0.9 mg/dL (0.6-1.3); GLUCOSE 87 mg/dL (74-106); MAGNESIUM - SERUM 1.9 mg/dL (1.8-2.4); POTASSIUM - SERUM 4.2 mmol/L (3.5-5.1); PROTEIN - SERUM 6.8 g/dL (6.4-8.2); SODIUM 137 mmol/L (136-145); UREA NITROGEN 30 mg/dL (7-18); eGFR NON AFRICAN AMERICAN 86 mL/min (90-120)
[2021-01-07 06:51] LABS: ALT (SGPT) 36 U/L (10-68)
[2021-01-07 09:26] VITALS: BP 123/51
--- NOTE | 2021-01-07 10:39 | MORECARE ---
CASE MANAGEMENT DISCHARGE SUMMARY PATIENT: MELVIN SYED UNIT: [id number] ADM DATE: 01/03/21 AGE: 80 : 40 SEX: M ROOM/BED: D.2223 AUTHOR: ARAM,DOC PHYSICIAN: REFERRING PHYSICIAN: ANT PETER MD DATE OF SERVICE: 01/07/21 Case Management Discharge Planning Summary COMMENTS ENTERED DATE: 01/07/21 10:27 CT COMMENT TYPE: Discharge Planning REVIEWER: Leslie Garcia SPOKE WITH [facility]I AT [facility] THIS MORNING. AUTH IS PENDING. ANTICIPATE DC SOON INSURANCE APPROVED DETENTION FACILITY. ENTERED DATE: 01/06/21 14:48 CT COMMENT TYPE: Discharge Planning REVIEWER: Leslie Garcia [facility] [place] [facility] NO BED AVALABILITY. CALLED [facility] AND THEY HAVE BEDS. REFERRAL FAXED THERE AFTER SPEAKING TO PATIENT . ENTERED DATE: 01/06/21 10:27 CT COMMENT TYPE: Discharge Planning REVIEWER: Leslie Garcia CM met with patient and his at bedside after obtaining verbal consent. CM discussed availability / needs of home health, REHAB and medical equipment. states he will need rehab to get stronger before it is safe for him to go home. They would like [facility] rehab but they currently do not have any available beds. I have faxed a referral to [facility] this morning. Waiting call back. Cm will follow and assist as needed. DCP REVIEW SUMMARY ANTICIPATED D/C DATE: EXPECTED LOS : CASE STATUS: DCP Initiated INITIAL REVIEW: 01/03/2021 INITIAL REVIEWER: Leslie Garcia FINAL DISCHARGE DISPOSITION: : FINAL REVIEWER: FINAL REVIEW DATE: DCP Focus Questions & Answers DCP Screen QUESTION: ANSWER High Risk Factors: : Modified LACE Score 11 or greater DCP Evaluation QUESTION: ANSWER Patient's current cognitive status: : Intermittently confused / memory changes Patient's ability to cope with chronic illness : a. Adequate (0-3 ED visits in 6 mos., adequate financial resources, attends scheduled appts.) Functional screen assessment: : New onset in difficulty in gait, balance, or transfer difficulties Does the patient have the ability to pay for or attain post discharge needs / services? : Yes Physical Status: : Mobility impaired Family / Caregiver's ability to cope with chronic illness: : a. Adequate (ability to meet patient's medical needs, ensures patient attends medical appts.) Is there a likelihood that the patient will require additional services to return to the preadmission environment? : Yes Partial Dependence, assistance required for: : Ambulation / Mobility Living Arrangements: : Home with Spouse/Significant Other Patient with capacity for self-care or can be cared for in same environment as prior to hospitalization? : No Results of this evaluation have been discussed with: : Family Baseline cognitive status: : Intermittently confused / memory changes Comments: : PATIENT WILL NEED SKILLED REHAB AT TIME OF DC. Pharmacy name(s): : [facility] Does Patient have transportation to get home and to follow-up medical appointments when discharged from the hospital? : Yes Would patient like to participate in any Care Coordination programs (if applicable): : Not applicable Does the patient have electricity at home? : Yes Does the patient have running water in their house? : Yes Equipment in use: : Cane - Quad Other Equipment comments: : VEST, WALKER, SHOWER CHAIR Mental health screen: : No mental health history DCP Re-evaluation QUESTION: ANSWER Would patient like to participate in any Care Coordination programs (if applicable): : Not applicable PROVIDER NETWORKING REVIEW DATE: 01/06/2021 SERVICE TYPE: Intermediate Facility REVIEWER: Leslie Garcia REVIEW DATE: 01/06/2021 SERVICE TYPE: Intermediate Facility REVIEWER: Leslie Garcia PATIENT: MELVIN SYED V ENCOUNTER: [id number] MEDICAL RECORD#: [id number] ADMISSION DATE: 01/03/2021 DISCHARGE DATE: ATTENDING MD: ANT HILL : AGE: 80 MARITAL STATUS: M DC PLAN ID: [id number] FACILITY: [facility] PRINTED ON: 01/07/21 10:39 CT All edits/amendments must be made on the electronic document DICTATION DATE: 01/07/21 1038 DROP TESTER: DM 01/07/21 1038 RPT#: [id number] DC DATE: STATUS: ADM IN [facility] [address] [place] [address] END OF REPORT
--- NOTE | 2021-01-07 10:40 | NUR ---
ASSESSMENT PER FLOW SHEET. PATIENT IS WITHOUT DISTRESS.FALL PREVENTION WITH EKATERINA MAT. DOOR OPEN TO MONITOR.
--- NOTE | 2021-01-07 13:52 | MORECARE ---
CASE MANAGEMENT DISCHARGE SUMMARY PATIENT: MELVIN SYED UNIT: [id number] ADM DATE: 01/03/21 AGE: 80 : 40 SEX: M ROOM/BED: D.2223 AUTHOR: ARAM,DOC PHYSICIAN: REFERRING PHYSICIAN: ANT PETER MD DATE OF SERVICE: 01/07/21 Case Management Discharge Planning Summary COMMENTS ENTERED DATE: 01/07/21 13:51 CT COMMENT TYPE: Discharge Planning REVIEWER: Leslie Garcia PATIENT'S NOW DOES NOT WANT [facility]. I HAVE CONTACTED [facility] TO CANCEL AUTH. WANTS [facility], I AM FAXING REFERRAL TO THEM NOW. ENTERED DATE: 01/07/21 10:27 CT COMMENT TYPE: Discharge Planning REVIEWER: Leslie Garcia SPOKE WITH AMI AT [facility] THIS MORNING. AUTH IS PENDING. ANTICIPATE DC SOON INSURANCE APPROVED JAIL FACILITY. ENTERED DATE: 01/06/21 14:48 CT COMMENT TYPE: Discharge Planning REVIEWER: Leslie MANCERA HAS NO BED AVALABILITY. CALLED [facility] AND THEY HAVE BEDS. REFERRAL FAXED THERE AFTER SPEAKING TO PATIENT . ENTERED DATE: 01/06/21 10:27 CT COMMENT TYPE: Discharge Planning REVIEWER: Leslie Garcia CM met with patient and his at bedside after obtaining verbal consent. CM discussed availability / needs of home health, REHAB and medical equipment. states he will need rehab to get stronger before it is safe for him to go home. They would like [facility] but they currently do not have any available beds. I have faxed a referral to [facility] this morning. Waiting call back. Cm will follow and assist as needed. DCP REVIEW SUMMARY ANTICIPATED D/C DATE: EXPECTED LOS : CASE STATUS: DCP Initiated INITIAL REVIEW: 01/03/2021 INITIAL REVIEWER: Leslie Garcia FINAL DISCHARGE DISPOSITION: : FINAL REVIEWER: FINAL REVIEW DATE: DCP Focus Questions & Answers DCP Screen QUESTION: ANSWER High Risk Factors: : Modified LACE Score 11 or greater DCP Evaluation QUESTION: ANSWER Patient's current cognitive status: : Intermittently confused / memory changes Patient's ability to cope with chronic illness : a. Adequate (0-3 ED visits in 6 mos., adequate financial resources, attends scheduled appts.) Functional screen assessment: : New onset in difficulty in gait, balance, or transfer difficulties Does the patient have the ability to pay for or attain post discharge needs / services? : Yes Physical Status: : Mobility impaired Family / Caregiver's ability to cope with chronic illness: : a. Adequate (ability to meet patient's medical needs, ensures patient attends medical appts.) Is there a likelihood that the patient will require additional services to return to the preadmission environment? : Yes Partial Dependence, assistance required for: : Ambulation / Mobility Living Arrangements: : Home with Spouse/Significant Other Patient with capacity for self-care or can be cared for in same environment as prior to hospitalization? : No Results of this evaluation have been discussed with: : Family Baseline cognitive status: : Intermittently confused / memory changes Comments: : PATIENT WILL NEED SKILLED REHAB AT TIME OF DC. Pharmacy name(s): : [facility] Does Patient have transportation to get home and to follow-up medical appointments when discharged from the hospital? : Yes Would patient like to participate in any Care Coordination programs (if applicable): : Not applicable Does the patient have electricity at home? : Yes Does the patient have running water in their house? : Yes Equipment in use: : Cane - Quad Other Equipment comments: : VEST, WALKER, SHOWER CHAIR Mental health screen: : No mental health history DCP Re-evaluation QUESTION: ANSWER Would patient like to participate in any Care Coordination programs (if applicable): : Not applicable PROVIDER NETWORKING REVIEW DATE: 01/06/2021 SERVICE TYPE: Detention Facility REVIEWER: Leslie Garcia REVIEW DATE: 01/06/2021 SERVICE TYPE: Detention Facility REVIEWER: Leslie Garcia REVIEW DATE: 01/07/2021 SERVICE TYPE: Detention Facility REVIEWER: Leslie Garcia PATIENT: MELVIN SYED V ENCOUNTER: [id number] MEDICAL RECORD#: [id number] ADMISSION DATE: 01/03/2021 DISCHARGE DATE: ATTENDING MD: ANT HILL : AGE: 80 MARITAL STATUS: M DC PLAN ID: [id number] FACILITY: [facility] PRINTED ON: 01/07/21 13:52 CT All edits/amendments must be made on the electronic document DICTATION DATE: 01/07/21 135 LABORER [employer]ARM: ANTHONY 01/07/21 1352 RPT#: [id number] DC DATE: STATUS: ADM IN [facility] [address] [place] [address] END OF REPORT
--- NOTE | 2021-01-07 14:17 | MORECARE ---
CASE MANAGEMENT DISCHARGE SUMMARY PATIENT: MELVIN SYED UNIT: [id number] ADM DATE: 01/03/21 AGE: 80 : 40 SEX: M ROOM/BED: D.2223 AUTHOR: ARAM,DOC PHYSICIAN: REFERRING PHYSICIAN: ANT PETER MD DATE OF SERVICE: 01/07/21 Case Management Discharge Planning Summary COMMENTS ENTERED DATE: 01/07/21 13:51 CT COMMENT TYPE: Discharge Planning REVIEWER: Leslie Garcia PATIENT'S NOW DOES NOT WANT [facility]. I HAVE CONTACTED [facility] TO CANCEL AUTH. WANTS [facility], I AM FAXING REFERRAL TO THEM NOW. ENTERED DATE: 01/07/21 10:27 CT COMMENT TYPE: Discharge Planning REVIEWER: Leslie Garcia SPOKE WITH [facility]I AT [facility] THIS MORNING. AUTH IS PENDING. ANTICIPATE DC SOON INSURANCE APPROVED SHELTER FACILITY. ENTERED DATE: 01/06/21 14:48 CT COMMENT TYPE: Discharge Planning REVIEWER: Leslie MANCERA HAS NO BED AVALABILITY. CALLED [facility] AND THEY HAVE BEDS. REFERRAL FAXED THERE AFTER SPEAKING TO PATIENT . ENTERED DATE: 01/06/21 10:27 CT COMMENT TYPE: Discharge Planning REVIEWER: Lelsie Garcia CM met with patient and his at bedside after obtaining verbal consent. CM discussed availability / needs of home health, REHAB and medical equipment. states he will need rehab to get stronger before it is safe for him to go home. They would like [facility] but they currently do not have any available beds. I have faxed a referral to [facility] this morning. Waiting call back. Cm will follow and assist as needed. DCP REVIEW SUMMARY ANTICIPATED D/C DATE: EXPECTED LOS : CASE STATUS: DCP Initiated INITIAL REVIEW: 01/03/2021 INITIAL REVIEWER: Leslie Garcia FINAL DISCHARGE DISPOSITION: : FINAL REVIEWER: FINAL REVIEW DATE: DCP Focus Questions & Answers DCP Screen QUESTION: ANSWER High Risk Factors: : Modified LACE Score 11 or greater DCP Evaluation QUESTION: ANSWER Patient's current cognitive status: : Intermittently confused / memory changes Patient's ability to cope with chronic illness : a. Adequate (0-3 ED visits in 6 mos., adequate financial resources, attends scheduled appts.) Functional screen assessment: : New onset in difficulty in gait, balance, or transfer difficulties Does the patient have the ability to pay for or attain post discharge needs / services? : Yes Physical Status: : Mobility impaired Family / Caregiver's ability to cope with chronic illness: : a. Adequate (ability to meet patient's medical needs, ensures patient attends medical appts.) Is there a likelihood that the patient will require additional services to return to the preadmission environment? : Yes Partial Dependence, assistance required for: : Ambulation / Mobility Living Arrangements: : Home with Spouse/Significant Other Patient with capacity for self-care or can be cared for in same environment as prior to hospitalization? : No Results of this evaluation have been discussed with: : Family Baseline cognitive status: : Intermittently confused / memory changes Comments: : PATIENT WILL NEED SKILLED REHAB AT TIME OF DC. Pharmacy name(s): : [facility] Does Patient have transportation to get home and to follow-up medical appointments when discharged from the hospital? : Yes Would patient like to participate in any Care Coordination programs (if applicable): : Not applicable Does the patient have electricity at home? : Yes Does the patient have running water in their house? : Yes Equipment in use: : Cane - Quad Other Equipment comments: : VEST, WALKER, SHOWER CHAIR Mental health screen: : No mental health history DCP Re-evaluation QUESTION: ANSWER Would patient like to participate in any Care Coordination programs (if applicable): : Not applicable PROVIDER NETWORKING REVIEW DATE: 01/06/2021 SERVICE TYPE: Penitentiary Facility REVIEWER: Leslie Garcia REVIEW DATE: 01/06/2021 SERVICE TYPE: Penitentiary Facility REVIEWER: Leslie Garcia REVIEW DATE: 01/07/2021 SERVICE TYPE: Penitentiary Facility REVIEWER: Leslie Garcia PATIENT: MELVIN SYED V ENCOUNTER: [id number] MEDICAL RECORD#: [id number] ADMISSION DATE: 01/03/2021 DISCHARGE DATE: ATTENDING MD: ANT HILL : AGE: 80 MARITAL STATUS: M DC PLAN ID: [id number] FACILITY: [facility] PRINTED ON: 01/07/21 14:16 CT All edits/amendments must be made on the electronic document DICTATION DATE: 01/07/211415 FINANCIAL DEALERS: ANTHONY 01/07/21 141 RPT#: [id number] DC DATE: STATUS: ADM IN [facility] [address] [place] [address] END OF REPORT
[2021-01-07 14:41] VITALS: BP 101/46
[2021-01-07 17:41] VITALS: BP 115/56
[2021-01-07 20:00] VITALS: BP 124/49
--- NOTE | 2021-01-07 20:00 | NUR ---
ALERT RESTING IN BED HOB ELEVATED AT 30 DEGREES, RIGHT ARM IN SLING, SEE SHIFT ASSESSMENT, CALLLIGHT IN REACH
--- NOTE | 2021-01-07 21:00 | NUR ---
OSMOLITE 1.5 1 CAN GIVEN PER PEG, NO RESUDUAL PRIOR TO FEEDINGS
--- NOTE | 2021-01-07 21:38 | NUR ---
OT NOTE: PT COMPLETED SUPINE TO SIT WITH MIN A. PT REQUIRED TOTAL A FOR RUE SLING POSITIONING. PT REQUIRED TOTAL A TO CATALINA SOCKS. PT REQUIRED MAX A FOR CATALINA BRIEF AND PANTS. PT COMPLETED ADL MOB FROM BED TO BATHROOM WITH CGA-MIN A. NOTIFIED NURSING THAT PT WAS ON TOILET ATTEMPTING TO HAVE BM. PT REQUIRED EXTENDED TIME. PT AND INSTRUCTED TO USE PULL CORD WHEN FINISHED. NURSING STATED THEY WOULD ASSIST PT WITH TOILETING TASK AND BACK TO BED...THEY WERE COLLECTING STOOL SAMPLE. [phone] THANK YOU,GABE JIANG
[2021-01-08] VITALS: BP 105/44
[2021-01-08 04:00] VITALS: BP 135/53
[2021-01-08 07:24] LABS: BASOPHILS 1.1 % (0-2); EOSINOPHILS 3.7 % (0-7); HEMATOCRIT 28.4 % (42.0-54.0); HEMOGLOBIN 9.7 g/dL (13.5-17.5); LYMPHOCYTES 19.8 % (15-50); MCH 31.7 pg (26.0-34.0); MCHC 34.1 g/dL (31.0-37.0); MEAN PLATELET VOLUME 7.9 fL (7.4-10.4); MONOCYTES 14.5 % (2-11); NEUTROPHILS 60.9 % (40-80); PLATELET COUNT 301 10x3/uL (130-400); RBC 3.06 10x6/uL (4.20-6.10); RDW 14.1 % (11.5-14.5); WBC 5.2 10x3/uL (4.8-10.8)
[2021-01-08 07:36] LABS: ALBUMIN 2.4 g/dL (3.4-5.0); ALKALINE PHOSPHATASE 92 U/L (30-120); ALT (SGPT) 40 U/L (10-68); BILIRUBIN - TOTAL 0.69 mg/dL (0.2-1.3); CALC OSMOLALITY 278 mosm/kg (275-300); CALCIUM 8.3 mg/dL (8.5-10.1); CARBON DIOXIDE 26.6 mmol/L (21.0-32.0); CHLORIDE - SERUM 101 mmol/L (98-107); CREATININE - SERUM 0.9 mg/dL (0.6-1.3); GLUCOSE 84 mg/dL (74-106); MAGNESIUM - SERUM 2.1 mg/dL (1.8-2.4); POTASSIUM - SERUM 4.2 mmol/L (3.5-5.1); PROTEIN - SERUM 7.4 g/dL (6.4-8.2); SODIUM 136 mmol/L (136-145); UREA NITROGEN 34 mg/dL (7-18); eGFR NON AFRICAN AMERICAN 86 mL/min (90-120)
[2021-01-08 08:51] VITALS: BP 98/91
--- NOTE | 2021-01-08 09:47 | NUR ---
BOLUS FEEDING ADMINISTERED PER G TUBE PER ORDERS. OSMOLITE 1.5. PT CALE WELL
--- NOTE | 2021-01-08 09:47 | NUR ---
MORNING MEDICATIONS ADMINISTERED PER MD ORDER. 1 CAN OSMOLITE 1.5 ADMINISTERED PER ORDERS VIA G-TUBE. 0 RESIDUAL, PT CALE WELL. BM NOTED AT THIS TIME. PROVIDED JAIME CARE AT THIS TIME. CL WITHIN REACH. ENCOURAGED TO CALL WITH NEEDS. CONTINUE POC
[2021-01-08 11:00] VITALS: BP 130/68
--- NOTE | 2021-01-08 12:50 | NUR ---
UNABLE TO PROVIDE FEEDING AT THIS TIME. RESIDUAL AT THIS TIME WAS >50ML. WILL CONTINUE TO ASSESS.
--- NOTE | 2021-01-08 14:21 | NUR ---
Nutrition follow-up: Pt receiving 6 cans of osmolite 1.5 brinda per day bolus with H2O flush before after each can Pt tolerating TF regimen at this time Labs reviewed WT: 182# Please get current wt to chart. RDN follow-up: 01/14/21
--- NOTE | 2021-01-08 15:15 | NUR ---
OT NOTE: PT DOING BETTER TODAY. BED MOB WITH MIN ASSIST AND EXT TIME FOR SUPINE TO SIT AND SCOOTING TO EOB. SIT TO STAND AND TRANSFERS WITH USE OF CANE WITH MIN/MOD ASSIST. SHOULDER SLING ADJUSTED FOR FUNCTION. WITH MOD ASSIST X 2, PT WAS ABLE TO AMB INTO HALLWAY WITH MOD VERBAL CUEING..2 PERSON ASSIST FOR SAFETY AND BALANCE. EXHIBITED IMPROVED BALANCE, HOWEVER, CONT TO RECOMMEND REHAB PRIOR TO DC HOME, HE REQUIRES EXT ASSIST FOR BOTH ADLS AND MOBILITY. ROBERT PARMAR, OTR/L [phone]
--- NOTE | 2021-01-08 16:00 | NUR ---
BOLUS FEEDING PROVIDED. 0 RESIDUAL AT THIS TIME PRIOR TO FEEDING. PT CALE WELL. HOB ELEVATED
[2021-01-08 20:00] VITALS: BP 120/50
[2021-01-09] VITALS: BP 113/46
[2021-01-09 04:00] VITALS: BP 130/49
[2021-01-09 05:57] LABS: BASOPHILS 0.6 % (0-2); EOSINOPHILS 4.3 % (0-7); HEMATOCRIT 27.6 % (42.0-54.0); HEMOGLOBIN 9.6 g/dL (13.5-17.5); LYMPHOCYTES 17.3 % (15-50); MCH 32.3 pg (26.0-34.0); MCHC 34.9 g/dL (31.0-37.0); MCV 92.5 fL (80.0-100.0); MEAN PLATELET VOLUME 7.6 fL (7.4-10.4); NEUTROPHILS 63.8 % (40-80); PLATELET COUNT 322 10x3/uL (130-400); RBC 2.98 10x6/uL (4.20-6.10); RDW 14.1 % (11.5-14.5); WBC 5.9 10x3/uL (4.8-10.8)
[2021-01-09 06:25] LABS: ALBUMIN 2.4 g/dL (3.4-5.0); ANION GAP 10.5 mmol/L (8-16); BILIRUBIN - TOTAL 0.58 mg/dL (0.2-1.3); CALCIUM 8.5 mg/dL (8.5-10.1); CARBON DIOXIDE 26.8 mmol/L (21.0-32.0); CREATININE - SERUM 1.1 mg/dL (0.6-1.3); MAGNESIUM - SERUM 2.3 mg/dL (1.8-2.4); POTASSIUM - SERUM 4.3 mmol/L (3.5-5.1); PROTEIN - SERUM 7.5 g/dL (6.4-8.2)
[2021-01-09 08:00] VITALS: BP 131/43
--- NOTE | 2021-01-09 09:48 | MORECARE ---
CASE MANAGEMENT DISCHARGE SUMMARY PATIENT: MELVIN SYED UNIT: [id number] ADM DATE: 01/03/21 AGE: 80 : 40 SEX: M ROOM/BED: D.2223 AUTHOR: ARAM,DOC PHYSICIAN: REFERRING PHYSICIAN: ANT PETER MD DATE OF SERVICE: 01/09/21 Case Management Discharge Planning Summary COMMENTS ENTERED DATE: 01/07/21 13:51 CT COMMENT TYPE: Discharge Planning REVIEWER: Leslie Garcia PATIENT'S NOW DOES NOT WANT [facility]. I HAVE CONTACTED [facility] TO CANCEL AUTH. WANTS [facility], I AM FAXING REFERRAL TO THEM NOW. ENTERED DATE: 01/07/21 10:27 CT COMMENT TYPE: Discharge Planning REVIEWER: Leslie Garcia SPOKE WITH AMI AT [facility] THIS MORNING. AUTH IS PENDING. ANTICIPATE DC SOON INSURANCE APPROVED [facility] FACILITY. ENTERED DATE: 01/06/21 14:48 CT COMMENT TYPE: Discharge Planning REVIEWER: Leslie MANCERA HAS NO BED AVALABILITY. CALLED [facility] AND THEY HAVE BEDS. REFERRAL FAXED THERE AFTER SPEAKING TO PATIENT . ENTERED DATE: 01/06/21 10:27 CT COMMENT TYPE: Discharge Planning REVIEWER: Leslie Garcia CM met with patient and his at bedside after obtaining verbal consent. CM discussed availability / needs of home health, REHAB and medical equipment. states he will need rehab to get stronger before it is safe for him to go home. They would like [facility] but they currently do not have any available beds. I have faxed a referral to [facility] this morning. Waiting call back. Cm will follow and assist as needed. DCP REVIEW SUMMARY ANTICIPATED D/C DATE: EXPECTED LOS : CASE STATUS: DCP Initiated INITIAL REVIEW: 01/03/2021 INITIAL REVIEWER: Leslie Garcia FINAL DISCHARGE DISPOSITION: : FINAL REVIEWER: FINAL REVIEW DATE: DCP Focus Questions & Answers DCP Screen QUESTION: ANSWER High Risk Factors: : Modified LACE Score 11 or greater DCP Evaluation QUESTION: ANSWER Patient's current cognitive status: : Intermittently confused / memory changes Patient's ability to cope with chronic illness : a. Adequate (0-3 ED visits in 6 mos., adequate financial resources, attends scheduled appts.) Functional screen assessment: : New onset in difficulty in gait, balance, or transfer difficulties Does the patient have the ability to pay for or attain post discharge needs / services? : Yes Physical Status: : Mobility impaired Family / Caregiver's ability to cope with chronic illness: : a. Adequate (ability to meet patient's medical needs, ensures patient attends medical appts.) Is there a likelihood that the patient will require additional services to return to the preadmission environment? : Yes Partial Dependence, assistance required for: : Ambulation / Mobility Living Arrangements: : Home with Spouse/Significant Other Patient with capacity for self-care or can be cared for in same environment as prior to hospitalization? : No Results of this evaluation have been discussed with: : Family Baseline cognitive status: : Intermittently confused / memory changes Comments: : PATIENT WILL NEED SKILLED REHAB AT TIME OF DC. Pharmacy name(s): : [facility] Does Patient have transportation to get home and to follow-up medical appointments when discharged from the hospital? : Yes Would patient like to participate in any Care Coordination programs (if applicable): : Not applicable Does the patient have electricity at home? : Yes Does the patient have running water in their house? : Yes Equipment in use: : Cane - Quad Other Equipment comments: : VEST, WALKER, SHOWER CHAIR Mental health screen: : No mental health history DCP Re-evaluation QUESTION: ANSWER Would patient like to participate in any Care Coordination programs (if applicable): : Not applicable PROVIDER NETWORKING REVIEW DATE: 01/06/2021 SERVICE TYPE: [facility] Facility REVIEWER: Leslie Garcia REVIEW DATE: 01/06/2021 SERVICE TYPE: [facility]dc Facility REVIEWER: Leslie Garcia REVIEW DATE: 01/07/2021 SERVICE TYPE: [facility]dc Facility REVIEWER: Leslie Garcia PATIENT: MELVIN SYED V ENCOUNTER: [id number] MEDICAL RECORD#: [id number] ADMISSION DATE: 01/03/2021 DISCHARGE DATE: ATTENDING MD: ANT HILL : AGE: 80 MARITAL STATUS: M DC PLAN ID: [id number] FACILITY: [facility] PRINTED ON: 01/09/21 9:48 CT All edits/amendments must be made on the electronic document DICTATION DATE: 01/09/21946 NEONATAL INTENSIVE CARE NURSE: ANTHONY 01/09/21946 RPT#: [id number] DC DATE: STATUS: ADM IN [facility] [address] [place] [address] END OF REPORT
--- NOTE | 2021-01-09 10:00 | MORECARE ---
CASE MANAGEMENT DISCHARGE SUMMARY PATIENT: MELVIN SYED UNIT: [id number] ADM DATE: 01/03/21 AGE: 80 : 40 SEX: M ROOM/BED: D.2223 AUTHOR: ARAM,LACY PHYSICIAN: REFERRING PHYSICIAN: ANT PETER MD DATE OF SERVICE: 01/09/21 Case Management Discharge Planning Summary COMMENTS ENTERED DATE: 01/09/21 9:50 CT COMMENT TYPE: Discharge Planning REVIEWER: Leslie Radha UPDATED NOTES FAXED TO [facility] AGAIN THIS MORNING. WAITING CALL BACK. THEY ARE SUBMITTING AUTH. ENTERED DATE: 01/07/21 13:51 CT COMMENT TYPE: Discharge Planning REVIEWER: Leslie Radha PATIENT'S NOW DOES NOT WANT [facility]. I HAVE CONTACTED [facility] TO CANCEL AUTH. WANT[facility], I AM FAXING REFERRAL TO THEM NOW. ENTERED DATE: 01/07/21 10:27 CT COMMENT TYPE: Discharge Planning REVIEWER: Leslie Radha SPOKE WITH AMI AT [facility] THIS MORNING. AUTH IS PENDING. ANTICIPATE DC SOON INSURANCE APPROVED [facility]. ENTERED DATE: 01/06/21 14:48 CT COMMENT TYPE: Discharge Planning REVIEWER: Leslie Radha FIORDALIZA HAS NO BED AVALABILITY. CALLED [facility] AND THEY HAVE BEDS. REFERRAL FAXED THERE AFTER SPEAKING TO PATIENT . ENTERED DATE: 01/06/21 10:27 CT COMMENT TYPE: Discharge Planning REVIEWER: Leslie Garcia CM met with patient and his at bedside after obtaining verbal consent. CM discussed availability / needs of home health, REHAB and medical equipment. states he will need rehab to get stronger before it is safe for him to go home. They would like [facility] re[facility] but they currently do not have any available beds. I have faxed a referral to [facility] this morning. Waiting call back. Cm will follow and assist as needed. DCP REVIEW SUMMARY ANTICIPATED D/C DATE: EXPECTED LOS : CASE STATUS: DCP Initiated INITIAL REVIEW: 01/03/2021 INITIAL REVIEWER: Leslie Garcia FINAL DISCHARGE DISPOSITION: : FINAL REVIEWER: FINAL REVIEW DATE: DCP Focus Questions & Answers DCP Screen QUESTION: ANSWER High Risk Factors: : Modified LACE Score 11 or greater DCP Evaluation QUESTION: ANSWER Patient's current cognitive status: : Intermittently confused / memory changes Patient's ability to cope with chronic illness : a. Adequate (0-3 ED visits in 6 mos., adequate financial resources, attends scheduled appts.) Functional screen assessment: : New onset in difficulty in gait, balance, or transfer difficulties Does the patient have the ability to pay for or attain post discharge needs / services? : Yes Physical Status: : Mobility impaired Family / Caregiver's ability to cope with chronic illness: : a. Adequate (ability to meet patient's medical needs, ensures patient attends medical appts.) Is there a likelihood that the patient will require additional services to return to the preadmission environment? : Yes Partial Dependence, assistance required for: : Ambulation / Mobility Living Arrangements: : Home with Spouse/Significant Other Patient with capacity for self-care or can be cared for in same environment as prior to hospitalization? : No Results of this evaluation have been discussed with: : Family Baseline cognitive status: : Intermittently confused / memory changes Comments: : PATIENT WILL NEED SKILLED REHAB AT TIME OF DC. Pharmacy name(s): : [facility] Does Patient have transportation to get home and to follow-up medical appointments when discharged from the hospital? : Yes Would patient like to participate in any Care Coordination programs (if applicable): : Not applicable Does the patient have electricity at home? : Yes Does the patient have running water in their house? : Yes Equipment in use: : Cane - Quad Other Equipment comments: : VEST, WALKER, SHOWER CHAIR Mental health screen: : No mental health history DCP Re-evaluation QUESTION: ANSWER Would patient like to participate in any Care Coordination programs (if applicable): : Not applicable PROVIDER NETWORKING REVIEW DATE: 01/06/2021 SERVICE TYPE: Group Home Facility REVIEWER: Leslie Garcia REVIEW DATE: 01/06/2021 SERVICE TYPE: Group Home Facility REVIEWER: Leslie Garcia REVIEW DATE: 01/07/2021 SERVICE TYPE: Group Home Facility REVIEWER: Leslie Garcia PATIENT: MELVIN SYED V ENCOUNTER: [id number] MEDICAL RECORD#: [id number] ADMISSION DATE: 01/03/2021 DISCHARGE DATE: ATTENDING MD: ANT HILL : AGE: 80 MARITAL STATUS: M DC PLAN ID: [id number] FACILITY: [facility] PRINTED ON: 01/09/21 10:00 CT All edits/amendments must be made on the electronic document DICTATION DATE: 01/09/21958 RENTAL AGENT: ANTHONY 01/09/21958 RPT#: [id number] DC DATE: STATUS: ADM IN [facility] [address] [place] [address] END OF REPORT
--- NOTE | 2021-01-09 10:30 | NUR ---
ASSESSMENT PER FLOW SHEET. PATIENT IS WITHOUT DISTRESS. FEED AT THIS TIME. 0 RESIDUAL NOTED. AM MEDS.[facility] FOR SAFETY.
[2021-01-09 11:37] VITALS: BP 99/58
[2021-01-09] MEDS ORDERED: ROBITUSSIN DM 110 ML PEG (13:42)
[2021-01-09 14:40] VITALS: BP 125/54
--- NOTE | 2021-01-09 14:56 | NUR ---
DISCHARGE INSTRUCTIONS WITH ,STATES UNDERSTANDING.
--- NOTE | 2021-01-09 14:57 | NUR ---
ATTEMPTED TO CALL REPORT CALLED TO [facility]. NO ANSWER
--- NOTE | 2021-01-09 15:09 | NUR ---
REPORT TO ALPHONSE AT [facility].
--- NOTE | 2021-01-09 15:20 | NUR ---
LEFT UNIT VIA WHEELCHAIR FOR TRANSPORT TO [facility]
--- NOTE | 2021-01-09 15:26 | MORECARE ---
CASE MANAGEMENT DISCHARGE SUMMARY PATIENT: MELVIN SYED UNIT: [id number] ADM DATE: 01/03/21 AGE: 80 : 40 SEX: M ROOM/BED: D.2223 AUTHOR: ARAM,LACY PHYSICIAN: REFERRING PHYSICIAN: ANT PETER MD DATE OF SERVICE: 01/09/21 Case Management Discharge Planning Summary COMMENTS ENTERED DATE: 01/09/21 9:50 CT COMMENT TYPE: Discharge Planning REVIEWER: Leslie Radha UPDATED NOTES FAXED TO [facility] AGAIN THIS MORNING. WAITING CALL BACK. THEY ARE SUBMITTING AUTH. ENTERED DATE: 01/07/21 13:51 CT COMMENT TYPE: Discharge Planning REVIEWER: Leslie Radha PATIENT'S NOW DOES NOT WANT [facility]. I HAVE CONTACTED [facility] TO CANCEL AUTH. WANT[facility], I AM FAXING REFERRAL TO THEM NOW. ENTERED DATE: 01/07/21 10:27 CT COMMENT TYPE: Discharge Planning REVIEWER: Leslie Radha SPOKE WITH AMI AT [facility] THIS MORNING. AUTH IS PENDING. ANTICIPATE DC SOON INSURANCE APPROVED PENITENTIARY FACILITY. ENTERED DATE: 01/06/21 14:48 CT COMMENT TYPE: Discharge Planning REVIEWER: Leslie Radha FIORDALIZA HAS NO BED AVALABILITY. CALLED [facility] AND THEY HAVE BEDS. REFERRAL FAXED THERE AFTER SPEAKING TO PATIENT . ENTERED DATE: 01/06/21 10:27 CT COMMENT TYPE: Discharge Planning REVIEWER: Leslie Garcia CM met with patient and his at bedside after obtaining verbal consent. CM discussed availability / needs of home health, REHAB and medical equipment. states he will need rehab to get stronger before it is safe for him to go home. They would like [facility] nursing and rehab but they currently do not have any available beds. I have faxed a referral to [facility] this morning. Waiting call back. Cm will follow and assist as needed. DCP REVIEW SUMMARY ANTICIPATED D/C DATE: EXPECTED LOS : CASE STATUS: DCP Initiated INITIAL REVIEW: 01/03/2021 INITIAL REVIEWER: Leslie Garcia FINAL DISCHARGE DISPOSITION: : FINAL REVIEWER: FINAL REVIEW DATE: DCP Focus Questions & Answers DCP Screen QUESTION: ANSWER High Risk Factors: : Modified LACE Score 11 or greater DCP Evaluation QUESTION: ANSWER Patient's current cognitive status: : Intermittently confused / memory changes Patient's ability to cope with chronic illness : a. Adequate (0-3 ED visits in 6 mos., adequate financial resources, attends scheduled appts.) Functional screen assessment: : New onset in difficulty in gait, balance, or transfer difficulties Does the patient have the ability to pay for or attain post discharge needs / services? : Yes Physical Status: : Mobility impaired Family / Caregiver's ability to cope with chronic illness: : a. Adequate (ability to meet patient's medical needs, ensures patient attends medical appts.) Is there a likelihood that the patient will require additional services to return to the preadmission environment? : Yes Partial Dependence, assistance required for: : Ambulation / Mobility Living Arrangements: : Home with Spouse/Significant Other Patient with capacity for self-care or can be cared for in same environment as prior to hospitalization? : No Results of this evaluation have been discussed with: : Family Baseline cognitive status: : Intermittently confused / memory changes Comments: : PATIENT WILL NEED SKILLED REHAB AT TIME OF DC. Pharmacy name(s): : [facility] Does Patient have transportation to get home and to follow-up medical appointments when discharged from the hospital? : Yes Would patient like to participate in any Care Coordination programs (if applicable): : Not applicable Does the patient have electricity at home? : Yes Does the patient have running water in their house? : Yes Equipment in use: : Cane - Quad Other Equipment comments: : VEST, WALKER, SHOWER CHAIR Mental health screen: : No mental health history DCP Re-evaluation QUESTION: ANSWER Would patient like to participate in any Care Coordination programs (if applicable): : Not applicable PROVIDER NETWORKING REVIEW DATE: 01/06/2021 SERVICE TYPE: Residential Facility REVIEWER: Leslie Garcia REVIEW DATE: 01/06/2021 SERVICE TYPE: Residential Facility REVIEWER: Leslie Garcia REVIEW DATE: 01/07/2021 SERVICE TYPE: Residential Facility REVIEWER: Leslie Garcia PATIENT: MELVIN SYED V ENCOUNTER: [id number] MEDICAL RECORD#: [id number] ADMISSION DATE: 01/03/2021 DISCHARGE DATE: 01/09/2021 ATTENDING MD: ANT HILL : AGE: 80 MARITAL STATUS: M DC PLAN ID: [id number] FACILITY: [facility] PRINTED ON: 01/09/21 15:25 CT All edits/amendments must be made on the electronic document DICTATION DATE: 01/09/21 1525 END FINDER FORMING DEPARTMENT: ANTHONY 01/09/21 1525 RPT#: [id number] DC DATE:01/09/21 STATUS: DIS IN [facility] [address] [place] [address] END OF REPORT
--- NOTE | 2021-01-09 16:31 | NUR ---
OT NOTE: PT COMPLETED SUPINE TO SIT WITH MIN A.PT COMPLETED ADL MOB WITH MIN-MOD A. PT COMPLETED TOILETING TASKS WITH MOD-MAX A FOR HYGIENE. PT COMPLETED HAND HYGIENE WITH SETUP. CL IN REACH..ALARM ON. [phone] THANK YOU,GABE JIANG
--- NOTE | 2021-01-14 15:14 | MORECARE ---
CASE MANAGEMENT DISCHARGE SUMMARY PATIENT: MELVIN SYED UNIT: [id number] ADM DATE: 01/03/21 AGE: 80 : 40 SEX: M ROOM/BED: D.2223 AUTHOR: LACY CHIU PHYSICIAN: REFERRING PHYSICIAN: ANT PETER MD DATE OF SERVICE: 01/14/21 Case Management Discharge Planning Summary COMMENTS ENTERED DATE: 01/09/21 9:50 CT COMMENT TYPE: Discharge Planning REVIEWER: Leslie Radha UPDATED NOTES FAXED TO [facility] AGAIN THIS MORNING. WAITING CALL BACK. THEY ARE SUBMITTING AUTH. ENTERED DATE: 01/07/21 13:51 CT COMMENT TYPE: Discharge Planning REVIEWER: Leslie Radha PATIENT'S NOW DOES NOT WANT [facility]. I HAVE CONTACTED [facility] TO CANCEL AUTH. WANT[facility], I AM FAXING REFERRAL TO THEM NOW. ENTERED DATE: 01/07/21 10:27 CT COMMENT TYPE: Discharge Planning REVIEWER: Leslie Radha SPOKE WITH AMI AT [facility] THIS MORNING. AUTH IS PENDING. ANTICIPATE DC SOON INSURANCE APPROVED PENITENTIARY FACILITY. ENTERED DATE: 01/06/21 14:48 CT COMMENT TYPE: Discharge Planning REVIEWER: Leslie Radha [facility] CALLED [facility] AND THEY HAVE BEDS. REFERRAL FAXED THERE AFTER SPEAKING TO PATIENT . ENTERED DATE: 01/06/21 10:27 CT COMMENT TYPE: Discharge Planning REVIEWER: Leslie Garcia CM met with patient and his at bedside after obtaining verbal consent. CM discussed availability / needs of home health, REHAB and medical equipment. states he will need rehab to get stronger before it is safe for him to go home. They would like [facility] but they currently do not have any available beds. I have faxed a referral to [facility] re[facility] this morning. Waiting call back. Cm will follow and assist as needed. DCP REVIEW SUMMARY ANTICIPATED D/C DATE: EXPECTED LOS : CASE STATUS: DCP Initiated INITIAL REVIEW: 01/03/2021 INITIAL REVIEWER: Leslie Garcia FINAL DISCHARGE DISPOSITION: : FINAL REVIEWER: FINAL REVIEW DATE: DCP Focus Questions & Answers DCP Screen QUESTION: ANSWER High Risk Factors: : Modified LACE Score 11 or greater DCP Evaluation QUESTION: ANSWER Patient's ability to cope with chronic illness : a. Adequate (0-3 ED visits in 6 mos., adequate financial resources, attends scheduled appts.) Patient's current cognitive status: : Intermittently confused / memory changes Family / Caregiver's ability to cope with chronic illness: : a. Adequate (ability to meet patient's medical needs, ensures patient attends medical appts.) Physical Status: : Mobility impaired Does the patient have the ability to pay for or attain post discharge needs / services? : Yes Functional screen assessment: : New onset in difficulty in gait, balance, or transfer difficulties Living Arrangements: : Home with Spouse/Significant Other Partial Dependence, assistance required for: : Ambulation / Mobility Is there a likelihood that the patient will require additional services to return to the preadmission environment? : Yes Baseline cognitive status: : Intermittently confused / memory changes Results of this evaluation have been discussed with: : Family Patient with capacity for self-care or can be cared for in same environment as prior to hospitalization? : No Comments: : PATIENT WILL NEED SKILLED REHAB AT TIME OF DC. Pharmacy name(s): : [facility] Does Patient have transportation to get home and to follow-up medical appointments when discharged from the hospital? : Yes Would patient like to participate in any Care Coordination programs (if applicable): : Not applicable Does the patient have electricity at home? : Yes Does the patient have running water in their house? : Yes Equipment in use: : Cane - Quad Other Equipment comments: : VEST, WALKER, SHOWER CHAIR Mental health screen: : No mental health history DCP Re-evaluation QUESTION: ANSWER Would patient like to participate in any Care Coordination programs (if applicable): : Not applicable PROVIDER NETWORKING REVIEW DATE: 01/06/2021 SERVICE TYPE: Care Home Facility REVIEWER: Leslie Garcia REVIEW DATE: 01/06/2021 SERVICE TYPE: Care Home Facility REVIEWER: Leslie Garcia REVIEW DATE: 01/07/2021 SERVICE TYPE: Care Home Facility REVIEWER: Leslie Garcia PATIENT: MELVIN SYED V ENCOUNTER: [id number] MEDICAL RECORD#: [id number] ADMISSION DATE: 01/03/2021 DISCHARGE DATE: 01/09/2021 ATTENDING MD: ANT HILL : AGE: 80 MARITAL STATUS: M DC PLAN ID: [id number] FACILITY: [facility] PRINTED ON: 01/14/21 15:14 CT All edits/amendments must be made on the electronic document DICTATION DATE: 01/14/21 1514 ENVIRONMENTAL SERVICE AIDE: ANTHONY 01/14/21 1514 RPT#: [id number] DC DATE:01/09/21 STATUS: DIS IN [facility] [address] [place] [address] END OF REPORT
== END 2021-01-09 15:21 | DRG 91 ==
LOC: D.ER 01:51 → D.MS 03:59
PROVIDERS: Emergency Medicine; Student in an Organized Health Care Education/Training Program; ADMIT Family Medicine Adult Medicine; ATTEND Family Medicine Adult Medicine
PROC: 0RSJXZZ Reposition Right Shoulder Joint, External Approach (ICD-10-PCS; principal; 2021-01-03)
DX: G72.81 Critical illness myopathy (principal); E43 Unspecified severe protein-calorie malnutrition; E87.1 Hypo-osmolality and hyponatremia; Z91.81 History of falling; G20 Parkinson's disease; S43.004A Unspecified dislocation of right shoulder joint, initial encounter; Z75.0 Medical services not available in home; E03.9 Hypothyroidism, unspecified; J44.9 Chronic obstructive pulmonary disease, unspecified; R54 Age-related physical debility; R26.9 Unspecified abnormalities of gait and mobility; D50.9 Iron deficiency anemia, unspecified; J98.4 Other disorders of lung; J47.9 Bronchiectasis, uncomplicated; R91.1 Solitary pulmonary nodule; Z87.01 Personal history of pneumonia (recurrent); Z87.891 Personal history of nicotine dependence